=== PATIENT | male | born 1955 | race Caucasian/White ===

== ENCOUNTER 2020-05-27 07:01 | Outpatient (CLI) | payer MEDICARE, OTHER, SELFPAY ==
[2020-05-27 07:52] LABS: Cholesterol 129 mg/dL (0-200); HDL Direct 37 mg/dL; Triglycerides 146 mg/dL (<150)
[2020-05-27 08:06] LABS: LDL Cholesterol Direct 61 mg/dL
[2020-05-27 08:45] LABS: Prostate Specific Antigen < 0.1 ng/mL (< OR = 4.0); Thyroid Stimulating Hormone 0.846 uIU/mL (0.465-4.680)
== END 2020-05-27 07:02 | disposition home or self-care (01) ==
PROVIDERS: PCP Family Medicine; Visit Provider Family Medicine
DX: R53.83 Other fatigue (principal); I25.10 Atherosclerotic heart disease of native coronary artery without angina pectoris; R35.1 Nocturia
CPT/HCPCS: 36415; 80061; 84153; 84443

== ENCOUNTER 2020-09-02 06:54 | Outpatient (NON) | payer MEDICARE, SELFPAY ==
[2020-09-03 01:18] LABS: SARS-CoV-2 RNA PCR Negative
== END 2020-09-02 06:55 ==
PROVIDERS: PCP Family Medicine; Visit Provider Family Medicine
DX: R09.81 Nasal congestion (principal); Z20.828 Contact with and (suspected) exposure to other viral communicable diseases
CPT/HCPCS: 87635; C9803; U0003

== ENCOUNTER 2021-05-29 06:48 | Outpatient (CLI) | payer MEDICARE, SELFPAY ==
[2021-05-29 07:34] LABS: Add Urine Microscopic? YES; Appearance Urine Clear (Clear); Bilirubin Urine Negative (Negative); Blood Urine 1+ (Negative); Color Urine Yellow (Yellow); Glucose Urine UA Negative (Negative); Ketones Urine Negative (Negative); Leukocyte Esterase Ur Negative LEU/UL (NEGATIVE); Mucus Urine Rare /lpf; Nitrate Urine Negative (Negative); Protein Urine 1+ mg/dL (Negative); RBC Urine 0-2 /hpf (0-2); Specific Grav Ur 1.024 (1.001-1.035); Squamous Epithelial Cell Urine Rare /hpf (Few); Urobilinogen Urine Negative mg/dL (<2.0); WBC Urine 0-3 /hpf (0-3)
[2021-05-29 07:40] LABS: Alanine Aminotransferase 18 U/L (4-50); Albumin Level 4.1 g/dL (3.5-5.1); Alkaline Phosphatase 92 U/L (38-126); Anion Gap 5 mmol/L (8-16); Aspartate Amino Transferase 28 U/L (17-59); Bilirubin,Total 0.4 mg/dL (0.2-1.3); Blood Urea Nitrogen 21 mg/dL (9-20); Calcium 9.1 mg/dL (8.4-10.2); Carbon Dioxide 28 mmol/L (22-30); Chloride 107 mmol/L (98-107); Cholesterol 110 mg/dL (0-200); Estimated Glomerular Filt Rate 55; Glucose 93 mg/dL (65-110); HDL Direct 38 mg/dL; Potassium 4.1 mmol/L (3.4-5.0); Sodium 140 mmol/L (137-145); Triglycerides 111 mg/dL (<150)
[2021-05-29 07:51] LABS: LDL Cholesterol Direct 38 mg/dL
[2021-05-29 08:10] LABS: Prostate Specific Antigen < 0.1 ng/mL (< OR = 4.0); Thyroid Stimulating Hormone 0.806 uIU/mL (0.465-4.680)
== END 2021-05-29 06:49 | disposition home or self-care (01) ==
PROVIDERS: PCP Family Medicine; Visit Provider Family Medicine
DX: I25.10 Atherosclerotic heart disease of native coronary artery without angina pectoris (principal); R35.1 Nocturia; Z00.00 Encounter for general adult medical examination without abnormal findings; E78.5 Hyperlipidemia, unspecified
CPT/HCPCS: 36415; 80053; 80061; 81001; 84153; 84443

== ENCOUNTER 2021-07-11 06:47 | Outpatient (CLI) | payer MEDICARE, SELFPAY ==
[2021-07-11 07:37] LABS: Add Urine Microscopic? NO; Appearance Urine Clear (Clear); Bilirubin Urine Negative (Negative); Blood Urine Negative (Negative); Color Urine Yellow (Yellow); Glucose Urine UA Negative (Negative); Ketones Urine Negative (Negative); Leukocyte Esterase Ur Negative LEU/UL (NEGATIVE); Nitrate Urine Negative (Negative); Protein Urine Negative (Negative); Urobilinogen Urine Negative mg/dL (<2.0)
== END 2021-07-11 06:48 | disposition home or self-care (01) ==
PROVIDERS: PCP Family Medicine; Visit Provider Physician Assistant
DX: R31.9 Hematuria, unspecified (principal)
CPT/HCPCS: 81003

== ENCOUNTER 2021-11-17 06:46 | Outpatient (CLI) | payer MEDICARE, SELFPAY ==
[2021-11-17 07:26] LABS: Basophils Absolute Auto 0.1 K/mm3 (0.0-0.1); Eosinophils Absolute Auto 0.3 K/mm3 (0-0.3); Hemoglobin 14.7 g/dL (14.0-18.0); Immature Granulocyte Absolute 0.01 K/mm3 (0.00-0.031); Immature Granulocyte Percent A 0.1 % (0-0.5); Lymphocytes Absolute Auto 1.85 K/mm3 (0.9-3.2); Lymphocytes Percent Auto 26.2 % (18.3-44.2); Mean Corpuscular Volume 103.1 fl (80-100); Mean Platelet Volume 10.2 fl (7.4-10.4); Monocytes Absolute Auto 1.3 K/mm3 (0.1-0.6); Monocytes Percent Auto 18.4 % (2.6-8.5); Neutrophils Absolute Auto 3.6 K/mm3 (1.3-6.7); Neutrophils Percent Auto 50.3 % (45.5-73.1); Platelet Count Result 216 k/mm3 (150-375); Red Blood Count 4.46 M/mm3 (4.6-6.20); Red Cell Distribution Width 14.4 % (11.5-14.5); White Blood Count 7.1 K/mm3 (4.5-10.0)
[2021-11-17 07:29] LABS: Add Urine Microscopic? YES; Appearance Urine Clear (Clear); Bilirubin Urine Negative (Negative); Blood Urine 1+ (Negative); Color Urine Yellow (Yellow); Glucose Urine UA Negative (Negative); Ketones Urine Negative (Negative); Leukocyte Esterase Ur Negative LEU/UL (NEGATIVE); Mucus Urine Rare /lpf; Nitrate Urine Negative (Negative); Protein Urine Negative (Negative); Specific Grav Ur 1.019 (1.001-1.035); Urobilinogen Urine Negative mg/dL (<2.0); WBC Urine 0-3 /hpf (0-3)
[2021-11-17 07:42] LABS: Alanine Aminotransferase 19 U/L (4-50); Albumin Level 4.1 g/dL (3.5-5.1); Alkaline Phosphatase 89 U/L (38-126); Anion Gap 3 mmol/L (8-16); Aspartate Amino Transferase 32 U/L (17-59); Bilirubin,Total 0.6 mg/dL (0.2-1.3); Blood Urea Nitrogen 21 mg/dL (9-20); CRP < 0.5 mg/dL (<1.0); Carbon Dioxide 29 mmol/L (22-30); Chloride 106 mmol/L (98-107); Cholesterol 103 mg/dL (0-200); Estimated Glomerular Filt Rate 60; Glucose 106 mg/dL (65-110); HDL Direct 32 mg/dL; Potassium 4.2 mmol/L (3.4-5.0); Sodium 138 mmol/L (137-145); Triglycerides 119 mg/dL (<150)
[2021-11-17 07:51] LABS: LDL Cholesterol Direct 46 mg/dL
[2021-11-17 07:56] LABS: Erythrocyte Sedimentation Rate 10 mm/hr (0-20)
[2021-11-17 08:12] LABS: Prostate Specific Antigen < 0.1 ng/mL (< OR = 4.0); Thyroid Stimulating Hormone 0.486 uIU/mL (0.465-4.680)
== END 2021-11-17 06:47 | disposition home or self-care (01) ==
PROVIDERS: PCP Family Medicine; Visit Provider Family Medicine
DX: M05.79 Rheumatoid arthritis with rheumatoid factor of multiple sites without organ or systems involvement (principal); Z79.899 Other long term (current) drug therapy; E78.5 Hyperlipidemia, unspecified; M05.20 Rheumatoid vasculitis with rheumatoid arthritis of unspecified site; I25.10 Atherosclerotic heart disease of native coronary artery without angina pectoris; R53.83 Other fatigue; R35.1 Nocturia
CPT/HCPCS: 36415; 80053; 80061; 81001; 84153; 84443; 85025; 85652; 86140

== ENCOUNTER 2021-12-22 06:38 | Outpatient (CLI) | payer MEDICARE, SELFPAY ==
[2021-12-22 07:22] LABS: Add Urine Microscopic? YES; Appearance Urine Cloudy (Clear); Bilirubin Urine Negative (Negative); Blood Urine Negative (Negative); Color Urine Yellow (Yellow); Glucose Urine UA Negative (Negative); Ketones Urine Negative (Negative); Leukocyte Esterase Ur Negative LEU/UL (NEGATIVE); Mucus Urine Rare /lpf; Nitrate Urine Negative (Negative); Protein Urine Negative (Negative); RBC Urine 0-2 /hpf (0-2); Urobilinogen Urine Negative mg/dL (<2.0); WBC Urine 0-3 /hpf (0-3)
== END 2021-12-22 06:39 | disposition home or self-care (01) ==
LOC: ANHLAB 06:41
PROVIDERS: PCP Family Medicine; Visit Provider Physician Assistant
DX: R31.9 Hematuria, unspecified (principal)
CPT/HCPCS: 81001

== ENCOUNTER 2022-03-23 12:18 | Outpatient (CLI) | payer MEDICARE, SELFPAY ==
--- NOTE | ~2022-03-23 | CT_ITS ---
EXAMINATION: CT sinus wo con DATE: 03/23/2022 12:41 INDICATION: Chronic sinusitis TECHNIQUE: Computed tomography (CT) of the paranasal sinuses was performed without intravenous contra st. The dose-length product was 280.71 mGy-cm. Automated exposure control and iterative reconstructio n technique were employed. COMPARISON: None FINDINGS: There is mucosal thickening of the frontal, ethmoid, right sphenoid and maxillary sinuses. Mastoids are pneumatized. Rightward nasal septal deviation. Right ostiomeatal unit is partially occlu ded by soft tissue. IMPRESSION: 1. Moderate sinus disease. 2: Rightward nasal septal deviation. Reviewed, dictated and finalized at location A.
== END 2022-03-23 12:19 | disposition home or self-care (01) ==
PROVIDERS: PCP Family Medicine; Visit Provider Otolaryngology
DX: J32.8 Other chronic sinusitis (principal); J34.2 Deviated nasal septum
CPT/HCPCS: 70486

== ENCOUNTER 2022-12-11 11:07 | Outpatient (CLI) | payer MEDICARE, SELFPAY ==
--- NOTE | ~2022-12-11 | CT_ITS ---
CT Scan of the Chest without Contrast: Clinical Indication: Lung cancer screening, smoking history Technique: Contiguous sections were acquired throughout the chest without intravenous contrast. Dose reduction technique was used on this scan by utilizing automated exposure control and iterative recon struction technique. The dose-length product (DLP) was 163.88 mGy-cm. Findings: There is no evidence of any significant mediastinal, hilar or axillary lymphadenopathy. There are ath erosclerotic calcifications of the aorta. Large hiatal hernia present, containing essentially the ent terrence stomach, with organoaxial volvulus. There is no evidence of pleural or pericardial effusion. The lungs are clear. No pulmonary nodules or infiltrates are noted. There is moderate, predominantly paraseptal, emphysema. Images through the upper abdomen reveal no abnormalities. Impression: Lung-RADS 1: Negative. [address] advised. Moderate emphysema, predominantly paraseptal. Large hiatal hernia, containing the entire stomach with organoaxial volvulus. Reviewed, dictated and finalized at [facility]. Impression: Lung-RADS 1: Negative. [address] advised. Moderate emphysema, predominantly paraseptal. Large hiatal hernia, containing the entire stomach with organoaxial volvulus.
== END 2022-12-11 11:08 | disposition home or self-care (01) ==
LOC: ANHIMG 11:09
PROVIDERS: PCP Family Medicine; Visit Provider Family Medicine
DX: Z12.2 Encounter for screening for malignant neoplasm of respiratory organs (principal); F17.210 Nicotine dependence, cigarettes, uncomplicated
CPT/HCPCS: 71271

== ENCOUNTER 2022-12-14 06:37 | Outpatient (CLI) | payer MEDICARE, SELFPAY ==
[2022-12-14 07:41] LABS: Hematocrit 47.9 % (42.0-52.0); Hemoglobin 15.6 g/dL (14.0-18.0); Mean Corpuscular HGB Conc 32.6 g/dl (32-36); Mean Corpuscular Hemoglobin 33.5 pg (26-34); Mean Platelet Volume 10.6 fl (7.4-10.4); Platelet Count Result 201 k/mm3 (150-375); Red Blood Count 4.65 M/mm3 (4.6-6.20); White Blood Count 10.5 K/mm3 (4.5-10.0)
[2022-12-14 08:03] LABS: Alanine Aminotransferase 30 U/L (6-50); Albumin Level 4.2 g/dL (3.5-5.1); Alkaline Phosphatase 77 U/L (38-126); Anion Gap 7 mmol/L (8-16); Aspartate Amino Transferase 37 U/L (17-59); Bilirubin,Total 0.6 mg/dL (0.2-1.3); Blood Urea Nitrogen 18 mg/dL (9-20); Calcium 8.9 mg/dL (8.4-10.2); Carbon Dioxide 28 mmol/L (22-30); Chloride 105 mmol/L (98-107); Cholesterol 120 mg/dL (0-200); Estimated Glomerular Filt Rate > 60; Glucose 96 mg/dL (65-110); HDL Direct 33 mg/dL; Potassium 4.4 mmol/L (3.4-5.0); Sodium 140 mmol/L (137-145); Triglycerides 194 mg/dL (<150)
[2022-12-14 08:14] LABS: LDL Cholesterol Direct 49 mg/dL
[2022-12-14 08:14] LABS: Appearance Urine Clear (Clear); Bilirubin Urine Negative (Negative); Blood Urine Negative (Negative); Color Urine Yellow (Yellow); Glucose Urine UA Negative (Negative); Ketones Urine Negative (Negative); Leukocyte Esterase Ur Negative LEU/UL (NEGATIVE); Nitrate Urine Negative (Negative); Protein Urine Negative (Negative); Specific Grav Ur 1.022 (1.001-1.035); Urobilinogen Urine 0.2 mg/dL (<2.0)
[2022-12-14 08:32] LABS: Prostate Specific Antigen < 0.1 ng/mL (< OR = 4.0); Thyroid Stimulating Hormone 0.772 uIU/mL (0.465-4.680)
[2022-12-14 08:35] LABS: Add Urine Microscopic? NO
[2022-12-14 09:19] LABS: Hemoglobin A1C 5.4 % (<5.7)
== END 2022-12-14 06:38 | disposition home or self-care (01) ==
PROVIDERS: PCP Family Medicine; Visit Provider Family Medicine
DX: C44.92 Squamous cell carcinoma of skin, unspecified (principal); I25.10 Atherosclerotic heart disease of native coronary artery without angina pectoris; E78.5 Hyperlipidemia, unspecified; R35.1 Nocturia; R73.01 Impaired fasting glucose
CPT/HCPCS: 36415; 80053; 80061; 81003; 83036; 84153; 84443; 85027

== ENCOUNTER 2023-04-24 10:42 | Outpatient (CLI) | payer MEDICARE, SELFPAY ==
--- NOTE | ~2023-04-24 | US_ITS ---
EXAMINATION: US carotid duplex BI DATE: 04/24/2023 11:36 INDICATION: Occlusion/stenosis of the right carotid artery TECHNIQUE: Grayscale, color Doppler, and pulsed Doppler images of the cervical carotid arteries were obtained. The degree of vessel stenosis is placed in one of the following categories: normal, <50%, 5 0-69%, >=70% but less than near-occlusion, near-occlusion, or total occlusion. Note that percent sten osis relative to normal distal artery lumen diameter is indirectly measured from velocity measurement s as described by Jerzy, et al. Radiology 2003; 229:[id number]. COMPARISON: None. FINDINGS: RIGHT: The right common carotid artery (CCA) peak systolic velocity (PSV) is 71 cm/s. The right internal car otid artery (ICA) PSV is 58 cm/s. The right ICA end-diastolic velocity (EDV) is 20 cm/s. The right IC A/CCA PSV ratio is 0.8. Grayscale and color Doppler images yield an estimate of <50% diameter reducti on from plaque in the ICA. The external carotid artery (ECA) PSV is 98 cm/s. There is antegrade flow in the right vertebral artery. LEFT: The left CCA PSV is 92 cm/s. The left ICA PSV is 64 cm/s. The left ICA EDV is 16 cm/s. The left ICA/C CA PSV ratio is 0.7. Grayscale and color Doppler images yield an estimate of <50% diameter reduction from plaque in the ICA. The ECA PSV is 106 cm/s. There is antegrade flow in the left vertebral artery . Notes: normal: PSV<125 and no plaque <50%: PSV<125 (EDV<40;ICA/CCA PSV ratio<2.0; use these factors only if tandem lesions or low cardiac output or contralateral disease) 50-69%: PSV 125-230 (EDV 40-100;ratio 2.0-4.0) >=70% but less than near occlusion: PSV>230(EDV>100;ratio>4.0) near-occlusion: PSV variable; markedly narrowed lumen occlusion: absent flow on color/spectral Doppler and no lumen on grayscale IMPRESSION: 1. stenosis in the right internal carotid artery. 2. stenosis in the left internal carotid artery. Reviewed, dictated and finalized at location B.
== END 2023-04-24 10:43 | disposition home or self-care (01) ==
LOC: ANHIMG 10:43
PROVIDERS: PCP Family Medicine; Visit Provider Family Medicine
DX: I65.23 Occlusion and stenosis of bilateral carotid arteries (principal)
CPT/HCPCS: 93880

== ENCOUNTER 2023-12-05 19:24 | Emergency (ER) | payer MEDICARE, SELFPAY ==
--- NOTE | ~2023-12-05 | CT_ITS ---
CT scan of the Neck Technique: 2.5 mm axial scans were obtained through the neck after intravenous administration of 75 c c Omnipaque 350. Coronal and sagittal reconstructions of the neck were obtained. Dose reduction techn ique was used on this scan by utilizing automated exposure control and iterative reconstruction techn ique. The dose-length product (DLP) was 570.77 mGy-cm. Clinical History: Throat pain Findings: There is no evidence of any significant cervical lymphadenopathy. Several small, nonenlarged jugulo- digastric and posterior cervical lymph nodes are noted bilaterally. Parapharyngeal spaces appear norm al bilaterally. The parotid and submandibular glands appear normal. The pharyngeal mucosal spaces appear normal. No soft tissue masses are seen in the neck. The thyroid gland appears normal. Images of the lung apices reveal moderate to advanced paraseptal em physema. Impression: No significant abnormality seen in the neck itself. [place] lymph nodes are probably not enlarged by s ize criteria. Emphysematous change the lung apices, as above. Reviewed, dictated and finalized at location M. Impression: No significant abnormality seen in the neck itself. [place] lymph nodes are prob ably not enlarged by size criteria. Emphysematous change the lung apices, as above.
[2023-12-05 19:28] VITALS: BP 120/78; PULSE 90; RESP 20; TEMP 36.9; O2SAT 96
[2023-12-05 20:14] LABS: Strep Group A RT-PCR NOT DETECTED (Negative)
[2023-12-05 20:25] LABS: Influenza A QL RT-PCR Negative (Negative); Influenza B QL RT-PCR Negative (Negative); RSV RNA, RT-PCR Negative (Negative); SARS-CoV-2 RNA PCR Negative (Negative)
[2023-12-05 21:27] VITALS: O2SAT 99
[2023-12-05 21:28] VITALS: BP 134/75; PULSE 67; RESP 15; TEMP 36.6; O2SAT 99
--- NOTE | 2023-12-05 23:09 | ED.GENADULT ---
HPI - General Adult General Chief complaint: Upper Respiratory Infection Stated complaint: sore throat Time Seen by Provider: 12/05/23 22:04 History of Present Illness HPI narrative: 68-year-old male history of rheumatoid arthritis on methotrexate presenting for sore throat x1 0.5 months. Patient has been treated with multiple courses of antibiotics including amoxicillin, Augmentin and azithromycin. However he is still having pain. he can swallow although it is painful. Able to tolerating secretions. No shortness of breath. patient has significant smoking history. 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 Related Data Home Medications Medication Instructions Recorded Confirmed aspirin 81 mg chewable tablet 81 mg PO DAILY 10/16/19 12/04/23 (Kash Chewable Low Dose Aspirin) folic acid 1 mg tablet 1 mg PO DAILY 10/16/19 12/04/23 methotrexate sodium 2.5 mg tablet 2.5 mg PO WEEKLY 10/16/19 12/04/23 golimumab 12.5 mg/mL intravenous IV .x2besan 08/23/23 12/04/23 solution (Simponi ARIA) Allergies Allergy/AdvReac Type Severity Reaction Status Date / Time aspirin Allergy Mild Swelling Verified 12/04/23 09:48 [facility] Past Medical History Medical History CAD (coronary artery disease) Family history of colon cancer GERD (gastroesophageal reflux disease) History of insertion of hepatic arterial infusion pump HLD (hyperlipidemia) Immunocompromised [place] (myocardial infarction) Rheumatoid arthritis Smoking Surgical History Surgical History History of nasal septoplasty S/P coronary artery stent placement Family History Family History Mother Hypertension Carcinoma of colon Social History Social History Smoking packs per day: 1 Smoking cigarettes per day: 20.0 Years smoked: 30 Smoking pack-years: 30.00 Smoking status: Current every day smoker Tobacco type: cigarettes Second hand tobacco smoke exposure: No Alcohol intake: never Alcohol use details: rare Substance use: never Substance use type: does not use Living arrangements: with family Occupation/Education: occupation Gender identity (if verbalized by the patient): Male Sexual Orientation (if Verbalized by the Patient): Straight or Heterosexual Exam Narrative: APPEARANCE: No apparent distress. Head: no erythema posterior oropharynx, limb adenopathy the anterior cervical chain EYES: EOMI, NOSE: Atraumatic NECK: Trachea midline RESPIRATORY: No increased rate of breathing CARDIOVASCULAR: RRR, ABDOMINAL: Non-distended MUSCULOSKELETAl: No obvious deformities NEURO: Alert. Moving 4/4 extremities SKIN:: Warm, dry. Normal color PSYCHIATRIC: Normal affect Course Vital Signs Vital signs: Vital Signs Temperature 98.4 F 12/05/23 19:28 Pulse Rate 90 12/05/23 19:28 Respiratory Rate 20 12/05/23 19:28 Blood Pressure 120/78 12/05/23 19:28 Pulse Oximetry 96 12/05/23 19:28 Oxygen Delivery Room Air 12/05/23 19:28 Temperature 97.8 F 12/05/23 21:28 Pulse Rate 75 12/06/23 01:18 Respiratory Rate 20 12/06/23 01:18 Blood Pressure 100/62 12/06/23 01:18 Pulse Oximetry 99 12/06/23 01:18 Oxygen Delivery Room Air 12/05/23 21:27 Medical Decision Making [facility] Narrative Medical decision making narrative: -Course: 68-year-old male on immunosuppression for rheumatoid arthritis presenting with sore throat x1.5 months. Viral in strep swab is negative here. Physical exam unremarkable outside of some anterior cervical lymphadenopathy. Soft tissue CT of the neck unremarkable. No airway emergencies at this time. Patient be discharged with ENT follow-up. Incidentally found have low platelets. No bleeding. This can be followed by his primary care physician. -DDX includes but is not limited to: Neoplasm, strep throat, deep space infecti
[2023-12-05 23:21] VITALS: BP 104/66; PULSE 73; RESP 16; O2SAT 98
[2023-12-05 23:31] LABS: Hematocrit 48.1 % (42.0-52.0); Hemoglobin 16.2 g/dL (14.0-18.0); Immature Platelet Fraction Pct 13.8 % (0.9-11.2); Mean Corpuscular HGB Conc 33.7 g/dl (32-36); Mean Corpuscular Hemoglobin 32.2 pg (26-34); Mean Corpuscular Volume 95.6 fl (80-100); Mean Platelet Volume 12.3 fl (7.4-10.4); Platelet Count Result 51 k/mm3 (150-375); Red Blood Count 5.03 M/mm3 (4.6-6.20); Red Cell Distribution Width 15.6 % (11.5-14.5); White Blood Count 10.8 K/mm3 (4.5-10.0)
[2023-12-06 00:03] LABS: Band Neutrophils Percent 3 % (0-6); Large Platelets Present; Lymphocytes Absolute Manual 2.26 K/mm3 (1.1-4.5); Monocytes Absolute Manual 0.97 K/mm3 (0.1-0.90); Monocytes Percent Manual 9 % (3-9); Myelocytes Percent 2 %; Neutrophils Absolute Manual 7.34 K/mm3 (1.3-6.7); Neutrophils Percent Manual 65 % (46-73); Platelet Estimate Decreased (Adequate); Total Cells Counted 100
[2023-12-06 00:04] LABS: Schistocytes None Seen; Smudge Cells FEW
[2023-12-06 00:31] LABS: Anion Gap 5 mmol/L (8-16); Blood Urea Nitrogen 24 mg/dL (9-20); Calcium 9.8 mg/dL (8.4-10.2); Carbon Dioxide 25 mmol/L (22-30); Chloride 100 mmol/L (98-107); Estimated CRCL calculation 53 ml/min; Estimated Glomerular Filt Rate 55; Glucose 112 mg/dL (65-110); Potassium 3.9 mmol/L (3.4-5.0); Sodium 130 mmol/L (137-145)
[2023-12-06 00:35] LABS: Estimated CRCL calculation 43 ml/min; Estimated Glomerular Filt Rate 43
[2023-12-06 01:18] VITALS: BP 100/62; PULSE 75; RESP 20; O2SAT 99
== END 2023-12-06 03:01 | disposition home or self-care (01) ==
PROVIDERS: Emergency Medicine; Emergency Provider Emergency Medicine; PCP Family Medicine
DX: J31.2 Chronic pharyngitis (principal); Z20.822 Contact with and (suspected) exposure to COVID-19; I25.10 Atherosclerotic heart disease of native coronary artery without angina pectoris; I25.2 Old myocardial infarction; E78.5 Hyperlipidemia, unspecified; M06.9 Rheumatoid arthritis, unspecified; K21.9 Gastro-esophageal reflux disease without esophagitis; F17.210 Nicotine dependence, cigarettes, uncomplicated; Z95.5 Presence of coronary angioplasty implant and graft; Z79.82 Long term (current) use of aspirin
CPT/HCPCS: 36415; 70491; 80048; 85025; 85055; 87637; 87651; 99284; Q9967

== ENCOUNTER 2023-12-09 02:12 | Inpatient (IN) | payer MEDICARE, SELFPAY ==
[2023-12-09] VITALS (10 sets, daily range): BP systolic 86–119; BP diastolic 60–79; PULSE 65–110; RESP 16–20; TEMP 36.6–37; O2SAT 93–98; BMI 23.2; BMI 23.0
--- NOTE | ~2023-12-09 | US_ITS ---
EXAMINATION: US biopsy lymph node DATE: 12/12/2023 10:30 INDICATION: Right axillary lymphadenopathy. TECHNIQUE: The procedure including the risks, benefits, and alternatives was discussed with the patie nt. Risks discussed included bleeding and infection. The patient understood the risks and agreed to p roceed. The skin overlying the right axilla was prepped and draped in usual sterile fashion. Anesthe tic was administered with 1% lidocaine subcutaneously. An 18 gauge core biopsy needle was then used to obtain 6 core biopsy specimens under continuous sonographic guidance. The entry site was cleaned a nd dressed. There were no immediate complications. FINDINGS: Ultrasound images demonstrate the needle in a 1.6 x 1.1 x 1.2 cm axillary lymph node. IMPRESSION: 1. Ultrasound-guided core needle biopsy of a right axillary lymph node. Reviewed, dictated and finalized at location A.
--- NOTE | ~2023-12-09 | CT_ITS ---
EXAMINATION: CT diagnostic chest w con DATE: 12/10/2023 13:39 INDICATION: lymphadenopathy TECHNIQUE: Computed tomography (CT) of the chest was performed with 100 mL Omnipaque-350 intravenous contrast. Additional 3D reconstructions utilizing coronal maximum intensity projection (MIP) were per formed. Automated exposure control and iterative reconstruction technique were employed. The dose-cat gth product was 207.43 mGy-cm. COMPARISON: 12/11/2022 and 12/09/2023 FINDINGS: Moderate paraseptal and upper lung predominant emphysema. There is mild basilar septal line thickenin g associated with the peripheral emphysema the bilateral lower lobes, right greater than left. No ple ural effusion or pneumothorax. Heart size is normal. Atherosclerotic coronary artery calcification. N o pericardial effusion. Thoracic aorta is normal in caliber with no dissection. No interval change in a mildly enlarged precarinal lymph node which measures 11 mm maximal short axis diameter. There is a lso been interval enlargement of a few bilateral axillary lymph nodes measuring up to 11 mm in karolina l short axis diameter on the left and 12 mm on the right. Large sliding-type hiatal hernia. 2.[address] at the upper pole of the right kidney. Severe thoracic spondylosis with chronic mild anterior wedg ing of a few mid and lower thoracic vertebral bodies. IMPRESSION: 1. Moderate paraseptal predominant emphysema with irregular septal line thickening associated with th e emphysematous changes at the bilateral lower lobes which could represent atelectasis, mild pulmonar y edema or pneumonia in the acute setting or more chronic interstitial lung disease with either UIP o r NSIP pattern. 2. Interval development of a few mildly enlarged bilateral axillary lymph nodes which could be reacti ve with differential including lymphoma or metastatic disease. 3. Large sliding-type hiatal hernia. Reviewed, dictated and finalized at location A. IMPRESSION: 1. Moderate paraseptal predominant emphysema with irregular septal line thicken ing associated with the emphysematous changes at the bilateral lower lobes whic h could represent atelectasis, mild pulmonary edema or pneumonia in the acute s etting or more chronic interstitial lung disease with either UIP or NSIP patter n. 2. Interval development of a few mildly enlarged bilateral axillary lymph nodes which could be reactive with differential including lymphoma or metastatic dis ease. 3. Large sliding-type hiatal hernia.
--- NOTE | ~2023-12-09 | CT_ITS ---
EXAMINATION: CT abdomen pelvis wo con DATE: 12/09/2023 14:43 INDICATION: Abdomen pain TECHNIQUE: Computed tomography (CT) of the abdomen and pelvis was performed without intravenous contr ast. The dose-length product was 424.73 mGy-cm. Automated exposure control and iterative reconstructi on technique were employed. COMPARISON: None. FINDINGS: Large hiatal hernia. No significant pleural or pericardial effusion. There are chronic inte rstitial lung disease. Heart size normal. No significant pleural or pericardial effusion. There is sp lenomegaly. The liver, pancreas, adrenal glands are unremarkable. There is nonobstructing left renal stones. There is a right renal cyst. Colonic diverticulosis without evidence for diverticulitis. Gall bladder is present. Nonobstructive bowel gas pattern. Colonic diverticulosis without evidence for div erticulitis. There are retroperitoneal and mesenteric lymph nodes which are enlarged. Severe lower th oracic and lumbar spondylosis. IMPRESSION: 1. Mesenteric and retroperitoneal lymphadenopathy. Consider lymphoma and metastatic disease. 2: Large hiatal hernia. 3: Splenomegaly. 4: Nonobstructing left nephrolithiasis. Reviewed, dictated and finalized at location B. IMPRESSION: 1. Mesenteric and retroperitoneal lymphadenopathy. Consider lymphoma and metast atic disease. 2: Large hiatal hernia. 3: Splenomegaly. 4: Nonobstructing left nephrolithiasis.
--- NOTE | ~2023-12-09 | XR_ITS ---
XR chest 2V DATE: 12/15/2023 09:29 INDICATION: Pneumonia. Assessment TECHNIQUE: PA and lateral views COMPARISON: 12/10/2023 CT chest FINDINGS: Normal heart size. Aortic arch calcification. Large hiatal hernia with air-fluid level. There is minimal infiltrate or atelectasis in the right lower lung. Peripheral honeycombing and septal soft tissue thickening suggesting possible usual interstitial pneu monia type pulmonary interstitial fibrosis. IMPRESSION: Peripheral honeycombing and septal soft tissue thickening suggesting possible usual inter stitial pneumonia type pulmonary interstitial fibrosis Minimal infiltrate or atelectasis in the right lower lung Large hiatal hernia with air-fluid level Reviewed, dictated and finalized at location A. IMPRESSION: Peripheral honeycombing and septal soft tissue thickening suggestin g possible usual interstitial pneumonia type pulmonary interstitial fibrosis Minimal infiltrate or atelectasis in the right lower lung Large hiatal hernia with air-fluid level
--- NOTE | ~2023-12-09 | XR_ITS ---
XR chest 1V portable DATE: 12/19/2023 09:47 INDICATION: Fever TECHNIQUE: Portable upright AP chest on December 19, 2023 at 0935 hours COMPARISON: December 15, 2023 PA and lateral chest 12/10/2023 CT chest FINDINGS: Heart size is within normal range. There is pulmonary vascular redistribution and diffuse p ulmonary interstitial and minor fissure prominence suggesting Possible pulmonary Station subpleural edema. No pleural effusion or pneumothorax is noted. Peripheral bullous changes are noted. Aortic arch calcification. Large hiatal hernia Osteopenia. IMPRESSION: Mild congestive changes are suggested Reviewed, dictated and finalized at location B.
[2023-12-09 02:28] LABS: Basophils Absolute Auto 0.1 K/mm3 (0.0-0.1); Basophils Percent Auto 0.7 % (0.2-1.2); Hematocrit 43.8 % (42.0-52.0); Hemoglobin 14.3 g/dL (14.0-18.0); Immature Granulocyte Absolute 0.11 K/mm3 (0.00-0.031); Immature Granulocyte Percent A 0.9 % (0-0.5); Immature Platelet Fraction Pct 16.3 % (0.9-11.2); Lymphocytes Absolute Auto 3.61 K/mm3 (0.9-3.2); Lymphocytes Percent Auto 31.1 % (18.3-44.2); Mean Corpuscular HGB Conc 32.6 g/dl (32-36); Mean Corpuscular Hemoglobin 31.6 pg (26-34); Mean Corpuscular Volume 96.7 fl (80-100); Mean Platelet Volume 14.9 fl (7.4-10.4); Monocytes Percent Auto 17.4 % (2.6-8.5); Neutrophils Absolute Auto 5.8 K/mm3 (1.3-6.7); Neutrophils Percent Auto 49.9 % (45.5-73.1); Platelet Count Result 49 k/mm3 (150-375); Red Blood Count 4.53 M/mm3 (4.6-6.20); Red Cell Distribution Width 15.7 % (11.5-14.5); White Blood Count 11.6 K/mm3 (4.5-10.0)
[2023-12-09 02:37] LABS: INR 1.2; Prothrombin Time 15.3 Seconds (11.1-14.7)
[2023-12-09 02:41] LABS: Alanine Aminotransferase 38 U/L (6-50); Albumin Level 3.4 g/dL (3.5-5.1); Alkaline Phosphatase 95 U/L (38-126); Anion Gap 7 mmol/L (8-16); Aspartate Amino Transferase 63 U/L (17-59); Bilirubin,Total 0.7 mg/dL (0.2-1.3); Blood Urea Nitrogen 36 mg/dL (9-20); Calcium 9.4 mg/dL (8.4-10.2); Carbon Dioxide 27 mmol/L (22-30); Chloride 99 mmol/L (98-107); Estimated CRCL calculation 53 ml/min; Estimated Glomerular Filt Rate 55; Glucose 138 mg/dL (65-110); Sodium 133 mmol/L (137-145)
[2023-12-09 02:55] LABS: Platelet Estimate Decreased (Adequate)
[2023-12-09 02:56] LABS: Anisocytosis 1+; Large Platelets Present
[2023-12-09 02:57] LABS: Atypical Lymphocytes Present; Schistocytes None Seen
--- NOTE | 2023-12-09 05:11 | ED.GENADULT ---
HPI - General Adult General Chief complaint: GI Bleed Stated complaint: gi bleed Time Seen by Provider: 12/09/23 02:50 History of Present Illness HPI narrative: Patient is a 68-year-old male who presents to the emergency department this morning complaining of bloody stools. Patient states that at around midnight he went to the bathroom and noticed that he had a large volume of blood with his bowel movement. Patient states that the blood was dark red in color, however, his actual stools were very dark brown. Patient denies any history of GI bleed in the past and denies any current blood thinner use. Patient admits to daily baby aspirin use. is currently present at bedside and provides some of the history of present illness. She states that patient was diagnosed with strep throat approximately 2 weeks ago and since then has been struggling with a sore throat preventing him from eating as much as he normally does. Secondary to this, patient has been very weak. Patient has had repeat strep testing which was negative a few days ago. Patient also had viral swabs for COVID/S1/S2 RSV which were noted to be negative. Patient was informed that his platelet level were low and was instructed to follow up with his primary care physician regarding his thrombocytopenia. Patient is currently denying any nausea or vomiting, and denies any abdominal pain. There are no other modifying, alleviating, or precipitating factors at this time. Related Data Home Medications Medication Instructions Recorded Confirmed aspirin 81 mg chewable tablet 81 mg PO DAILY 10/16/19 12/04/23 (Kash Chewable Low Dose Aspirin) folic acid 1 mg tablet 1 mg PO DAILY 10/16/19 12/04/23 methotrexate sodium 2.5 mg tablet 2.5 mg PO WEEKLY 10/16/19 12/04/23 golimumab 12.5 mg/mL intravenous IV .[id number] 08/23/23 12/04/23 solution (Simponi ARIA) Allergies Allergy/AdvReac Type Severity Reaction Status Date / Time aspirin Allergy Mild Swelling Verified 12/04/23 09:48 Review of Systems Review of Systems: All systems are reviewed and are negative unless stated otherwise in the HPI. [facility] Past Medical History Medical History CAD (coronary artery disease) Family history of colon cancer GERD (gastroesophageal reflux disease) History of insertion of hepatic arterial infusion pump HLD (hyperlipidemia) Immunocompromised [place] (myocardial infarction) Rheumatoid arthritis Smoking Surgical History Surgical History History of nasal septoplasty S/P coronary artery stent placement Family History Family History Mother Hypertension Carcinoma of colon Social History Social History Smoking packs per day: 1 Smoking cigarettes per day: 20.0 Years smoked: 30 Smoking pack-years: 30.00 Smoking status: Current every day smoker Tobacco type: cigarettes Second hand tobacco smoke exposure: No Alcohol intake: never Alcohol use details: rare Substance use: never Substance use type: does not use Living arrangements: with family Occupation/Education: occupation Gender identity (if verbalized by the patient): Male Sexual Orientation (if Verbalized by the Patient): Straight or Heterosexual Exam Narrative: General: Alert, awake, afebrile, in no acute distress. HEENT: PERRL, no rhinorrhea, no post nasal drip, oropharynx clear. Neck: Trachea midline, no JVD, no lymphadenopathy. Cardiovascular: Regular rate and rhythm, no murmurs, rubs or gallops, no peripheral edema. Respiratory: Clear to auscultation bilaterally, no tachypnea, no wheezing, no rhonchi, no rubs, no respiratory distress. Abdomen: Soft, nontender, nondistended, no rebound, no guarding, no peritoneal signs. 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
[2023-12-09] MEDS: SODIUM CHLORIDE 0.9% IV 1,000 ML 100 ML IV CONT (06:36)
--- NOTE | 2023-12-09 11:00 | PM.IMHP ---
H&P: HPI History of Present Illness Date/Time: 12/09/23 11:00 Chief Complaint: Patient presented to the emergency room the POV with complaints of ongoing bloody stools that occurred 2 hours prior to arrival. Narrative: Patient is 68-year-old male with PMHx: of CAD, GERD, rheumatoid arthritis on biologics, history of [place] with stent placement reported to the emergency room citing, around midnight he went to the bathroom this is when he noticed a large volume of blood with his bowel movement. Patient endorsed dark red in color stools, he denies a history of GI bleed or anticoagulation use. Patient did state that he takes baby aspirin daily. Patient has history of rheumatoid arthritis he is currently on biologics to include methotrexate 2.5 mg p.o. weekly, he reports he has had ongoing sore throat for > 2 weeks he states it has been very difficult to swallow due to pain, patient, relates anorexia due to not being able to swallow and enjoy solid foods without pain. He reports a history of positive strep throat relates having close sick contacts with positive strep throat., He was also screened and tested for COVID RSV, which was negative. ED workup revealed: Hgb stable 14.3 platelets of 49, BUN 36 all other labs were unremarkable. Review of Systems Review of Systems: All systems reviewed & are unremarkable except as noted in HPI and below PMFSH Past Medical History Medical History CAD (coronary artery disease) Family history of colon cancer GERD (gastroesophageal reflux disease) History of insertion of hepatic arterial infusion pump HLD (hyperlipidemia) Immunocompromised [place] (myocardial infarction) Rheumatoid arthritis Smoking Surgical History Surgical History History of nasal septoplasty S/P coronary artery stent placement Family History Family History Mother Hypertension Carcinoma of colon Social History Social History Smoking packs per day: 1 Smoking cigarettes per day: 20.0 Years smoked: 40 Smoking pack-years: 40.00 Smoking status: Heavy tobacco smoker Tobacco type: cigarettes Second hand tobacco smoke exposure: No Alcohol intake: unknown Alcohol use details: rare Substance use: unknown Substance use type: does not use Do You Feel Safe in your Home?: Yes Lack of Transportation: No Lack of Food: Never True Current Housing: I Have Housing Concerned About Future Housing: No Difficulty Paying Gas/Electric Bills: No Difficulty Paying for Meds: No Currently Unemployed: YES Education: Associate Degree Difficulty w/ Childcare or Family Care: No Living arrangements: with family Occupation/Education: occupation Gender identity (if verbalized by the patient): Male Sexual Orientation (if Verbalized by the Patient): Straight or Heterosexual Spiritual care concerns: No Meds Home Medications and Allergies Home Medications Medication Instructions Recorded Confirmed Type folic acid 1 mg tablet 1 mg PO DAILY 10/16/19 12/09/23 History methotrexate sodium 2.5 mg tablet 25 mg PO WEEKLY 10/16/19 12/09/23 History finasteride 1 mg tablet 1 mg PO DAILY #90 tabs 08/21/23 12/09/23 Rx golimumab 12.5 mg/mL intravenous 12.5 mg IV .[id number] 08/23/23 12/09/23 History solution (Simponi ARIA) metoprolol tartrate 50 mg tablet 25 mg PO Q12H #90 tabs 12/04/23 12/09/23 Rx acetaminophen 500 mg tablet 1,000 mg PO Q8H 12/09/23 12/09/23 History aspirin 81 mg tablet,delayed 81 mg PO DAILY 12/09/23 12/09/23 History release (Adult Low Dose Aspirin) multivitamin 1 tablet PO DAILY 12/09/23 12/09/23 History simvastatin 40 mg tablet 40 mg PO 1700 12/09/23 12/09/23 History Allergies Allergy/AdvReac Type Severity Reaction Status Date / Time aspirin Allergy Mild Swelling Verified 12/04/23 09:48 Vital Signs Vital
[2023-12-09] MEDS: METOPROLOL TARTRATE 25 MG TABLET PO ×2 (11:18→20:23)
[2023-12-09] MEDS: MORPHINE SULFATE (*CRX) 2 MG/ML INJ 1 MG IV PUSH ×2 (11:18→15:32)
[2023-12-09] MEDS: NYSTATIN 100,000 UNITS/ML SUSP 5 ML ORAL.SUSP PO ×3 (11:19→21:27)
[2023-12-09] MEDS: LACTATED RINGERS 1,000 ML 75 ML IV CONT (14:00)
--- NOTE | 2023-12-09 14:54 | WPDGICN ---
Assessment and Plan Assessment and plan (1) Rectal bleed: Code(s): K62.5 - Hemorrhage of anus and rectum Status: Acute Assessment and Plan: ? perianal, never had colonoscopy also could be due to thrombocytopenia will assess with colonoscoy (2) Odynophagia: Code(s): R13.10 - Dysphagia, unspecified Status: Acute Assessment and Plan: egd to check if esophagitis (fungal- he is immunocompromised), ulcers, etc also using MTX- this can cause odynophagia/mucositis and low platelets antibiotics did not help (3) Thrombocytopenia: Code(s): D69.6 - Thrombocytopenia, unspecified Status: Acute Assessment and Plan: ? from methotrexate will give folic acid, get imaging of liver and spleen consult hematology (4) Immunocompromised: Code(s): D84.9 - Immunodeficiency, unspecified Status: Acute Assessment and Plan: on biologics because h/o RA (5) CAD (coronary artery disease): Code(s): I25.10 - Atherosclerotic heart disease of [place] coronary artery without angina pectoris Status: Acute (6) Family history of colon cancer: Code(s): Z80.0 - Family history of malignant neoplasm of digestive organs Status: Acute Assessment and Plan: never had colonoscopy and now with rectal bleeding colonoscopy tomorrow (7) Rheumatoid arthritis: Code(s): M06.9 - Rheumatoid arthritis, unspecified Status: Acute GI Consult Note Consult date/time: 12/09/23 14:54 Reason for consult: odynophagia, rectal bleed HPI: Sebastián Astudillo is a 68 year old male with history of CAD, GERD, rheumatoid arthritis on simponi and MTX, history of [place] with stent placement that came here with new onset of rectal bleeding, denies abdominal pain. He has been dealing with neck pain for over 2 weeks and had difficulty swallowing because of pain, mostly had liquid diet. He was diagnosed initially with strept throat, given amoxicilin without any relief then his PCP ordered Z-pack but still feeling the same. He is supposed to see ENT but still waiting for appointment. He had repeat strep testing which was negative a few days ago.? Patient also had viral swabs for COVID/S1/S2 RSV which were noted to be negative.?He had CT scan neck that showed small lymph nodes, no other concerning findings. He never had colonoscopy, he has been getting only cologuard, his mother had colon cancer. Also found to have new thrombocytopenia ~50k, hgb normal 14 Review of Systems Constitutional: Constitutional: Reports weakness Eyes: Eyes: Denies blurry vision ENT: Reports dysphagia Cardiovascular: Cardiovascular: Denies chest pain Respiratory: Respiratory: Denies chest congestion Gastrointestinal: Gastrointestinal: Reports hematochezia Genitourinary: Genitourinary: Denies dysuria Musculoskeletal: Comments: h/o RA Integumentary/Breasts: Skin/Breast: Reports rash Neurologic: Denies confusion Psychiatric: Psychiatric: Denies behavioral changes [facility] Past Medical History Medical History CAD (coronary artery disease) Family history of colon cancer GERD (gastroesophageal reflux disease) History of insertion of hepatic arterial infusion pump HLD (hyperlipidemia) Immunocompromised Odynophagia [place] (myocardial infarction) Rheumatoid arthritis Smoking Surgical History Surgical History History of nasal septoplasty S/P coronary artery stent placement Family History Family History Mother Hypertension Carcinoma of colon Social History Social History Smoking packs per day: 1 Smoking cigarettes per day: 20.0 Years smoked: 40 Smoking pack-years: 40.00 Smoking status: Heavy tobacco smoker Tobacco type: cigarettes Second hand tobacco smoke exposure: No Alcohol intake: unknown Alcohol use
[2023-12-09] MEDS: BISACODYL 5 MG TABLET EC 20 MG PO (16:11)
[2023-12-09] MEDS: polyethylene glycoL 3350 238 GM BOTTLE PO (16:11)
[2023-12-09] MEDS: SIMVASTATIN 20 MG TABLET 40 MG PO (17:09)
[2023-12-09] MEDS: ONDANSETRON INJ 4 MG/2 ML VIAL IV PUSH (20:51)
--- NOTE | 2023-12-09 23:05 | PC.NURSE ---
This RN preceptor has read over and agrees with student nurse Wall's charting and assessment.
[2023-12-10] VITALS (9 sets, daily range): BP systolic 82–112; BP diastolic 49–72; PULSE 70–89; RESP 16–23; TEMP 35.8–37.7; O2SAT 91–97
[2023-12-10] MEDS: MAGNESIUM CITRATE 300 ML BTL PO (06:38)
[2023-12-10] MEDS: NYSTATIN 100,000 UNITS/ML SUSP 5 ML ORAL.SUSP PO ×4 (08:35→20:14)
[2023-12-10] MEDS: METOPROLOL TARTRATE 25 MG TABLET PO ×2 (08:35→20:13)
--- NOTE | 2023-12-10 08:45 | PM.IMPN ---
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 -denies any n/v Hgb 14.3 12/10/2023 - EGD scheduled pending this a.m. - recheck BMP, CBC in the a.m. (2) Thrombocytopenia: Code(s): D69.6 - Thrombocytopenia, unspecified Status: Acute Assessment and Plan: -hgb stable decline to 12.2 -continue to monitor (3) Immunocompromised: Code(s): D84.9 - Immunodeficiency, unspecified Status: Acute Assessment and Plan: 12/10/23 - continue with plan Patient with history of rheumatoid arthritis on biologics -Hold home medication at this time (4) Rheumatoid arthritis: Code(s): M06.9 - Rheumatoid arthritis, unspecified Status: Acute Assessment and Plan: 12/10/2023 continue plan -hold home medication methotrexate p.o. (5) HLD (hyperlipidemia): Code(s): E78.5 - Hyperlipidemia, unspecified Status: Acute Assessment and Plan: -continue home medication - simvastatin 40 mg p.o. daily (6) CAD (coronary artery disease): Code(s): I25.10 - Atherosclerotic heart disease of [place] coronary artery without angina pectoris Status: Acute Assessment and Plan: stable, denies any chest pain -continue monitor vitals q 4 hrs Plan Continue home medications, patient is scheduled for EGD today, anticipate discharge to home in the a.m. VTE Prophylaxis: SCDs DIET: Clear then NPO at midnight Anticipated hospital stay: >2 days Code Status: Full Subjective Date/time seen: 12/10/23 08:45 Interval history: Patient seen this morning he is resting with eyes open in no acute distress, spouse is by the bedside patient is scheduled for an EGD, this morning, he complains of ongoing mouth pain continued body aches and fatigue. He denies any other complaints at this time. Review of Systems Review of Systems: All systems reviewed & are unremarkable except as noted in HPI and below Exam Narrative: General: Alert, awake, afebrile, in no acute distress. HEENT: PERRL, no rhinorrhea, no post nasal drip, oropharynx clear. Neck: Trachea midline, no JVD, no lymphadenopathy. Cardiovascular: Regular rate and rhythm, no murmurs, rubs or gallops, no peripheral edema. Respiratory: Clear to auscultation bilaterally, no tachypnea, no wheezing, no rhonchi, no rubs, no respiratory distress. Abdomen: Soft, nontender, nondistended, no rebound, no guarding, no peritoneal signs. Musculoskeletal: No joint swelling or deformity, normal muscle tone. Skin: No rashes or petechia, no signs of infection. Psychiatric: Alert and oriented, normal behavior and judgment for situation. Neurological: Alert and oriented to person, place, and time. Follows all commands. No focal deficits, speech is clear and fluent. Objective Data Vital Signs Vital Signs: Vital Signs - 24 hr 12/09/23 11:18 12/09/23 14:00 12/09/23 20:23 Temperature 98.6 F Pulse Rate 88 77 65 Respiratory Rate 20 Blood Pressure 86/60 L Pulse Oximetry 94 12/09/23 20:20 12/10/23 05:05 12/10/23 08:35 Temperature 98.5 F 98.8 F Pulse Rate 96 80 80 Respiratory Rate 16 16 Blood Pressure 119/68 112/55 L Pulse Oximetry 93 91 Intake/Output Intake/Output: Intake & Output 12/07/23 12/08/23 12/09/23 12/10/23 23:59 23:59 23:59 23:59 Intake Total 1620 Output Total 300 Balance 1320 Meds/Results Medications: Active Medications Generic Name Dose Route Start Last Admin Trade Name Freq PRN Reason Stop Dose Admin Metoprolol Tartrate 25 mg 12/09/23 11:05
[2023-12-10 09:06] LABS: Hematocrit 37.6 % (42.0-52.0); Hemoglobin 12.2 g/dL (14.0-18.0); Immature Platelet Fraction Pct 16.8 % (0.9-11.2); Mean Corpuscular HGB Conc 32.4 g/dl (32-36); Mean Corpuscular Hemoglobin 31.6 pg (26-34); Mean Corpuscular Volume 97.4 fl (80-100); Mean Platelet Volume 13.8 fl (7.4-10.4); Platelet Count Result 45 k/mm3 (150-375); Red Blood Count 3.86 M/mm3 (4.6-6.20); Red Cell Distribution Width 15.6 % (11.5-14.5); White Blood Count 9.7 K/mm3 (4.5-10.0)
--- NOTE | 2023-12-10 09:34 | PDONCCN ---
HPI - Date of Consult Date/Time: 12/10/23 12:43 <Andre Mccormack - 12/10/23 12:48> 12/10/23 09:34 <Shannon Kirkland - 12/10/23 09:44> Requesting Physician: Virginia Joshi MD <Andre Mccormack - 12/10/23 12:48> Virginia Joshi MD <Shannon Kirkland - 12/10/23 09:44> Primary Care Provider: Davey Reynolds MD <Andre Mccormack - 12/10/23 12:48> Davey Reynolds MD <Shannon Kirkland - 12/10/23 09:44> - Consult Narrative Reason for consult: Thrombocytopenia and lymphadenopathy <Shannon Kirkland - 12/10/23 09:44> Narrative: Sebastián Astudillo is a 68 year old male <Andre Mccormack - 12/10/23 12:48> Sebastián Astudillo is a 68 year old male with a past medical history of CAD, GERD, RA, HLD, who admits for bloody stools. He reports blood in his stool after going to the bathroom around midnight on Saturday night. He endorses dark red and black stools. He is supposed to get EGD and colonoscopy today. He uses aspirin but is not on anyother AC. He is has RA and is on MTX weekly. He follows with Dr Boothe at [facility]. He reports its been very hard to swallow and has had two strep throat infections recently. He now has thrush and has been started on nystatin. He is unable to eat or drink due to mouth pain. He feel as if the morphine is not helping. In general, he reports fatigue, rectal bleeding, intermittent fevers and nights sweats and anorexia due to throat pain. He has a past history of skin cancer and familial history of colon cancer. 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 He has a 1 pack/day smoking history for 43+ years. There is a concerning abd/pelvis CT scan for mesenteric and retroperitoneal lymphadenopathy possibly consistent with lymphoma, splenomegaly, hiatal hernia, nephrolithiasis. <Shannon Kirkland - 12/10/23 10:24> Review of Systems - Review of Systems All systems reviewed & are unremarkable except as noted in HPI and bel <Shannon Kirkland 12/10/23 09:50> - Neurologic Reports weakness, Denies behavioral changes, Denies confusion <MaritaShannon 12/10/23 09:44> [facility] Medical History: Medical History (Last Updated 12/09/23 @ 15:02 by Nabeel Kelly MD) CAD (coronary artery disease) Family history of colon cancer GERD (gastroesophageal reflux disease) History of insertion of hepatic arterial infusion pump HLD (hyperlipidemia) Immunocompromised Odynophagia Old ID (myocardial infarction) Rheumatoid arthritis Smoking <Andre Mccormack - 12/10/23 12:48> Medical History (Last Updated 12/09/23 @ 15:02 by Nabeel Kelly MD) CAD (coronary artery disease) Family history of colon cancer GERD (gastroesophageal reflux disease) History of insertion of hepatic arterial infusion pump HLD (hyperlipidemia) Immunocompromised Odynophagia Old ID (myocardial infarction) Rheumatoid arthritis Smoking <Shannon Kirkland 12/10/23 09:44> Surgical History: Surgical History (Last Reviewed 12/09/23 @ 13:54 by Jennifer Mead APRN) History of nasal septoplasty S/P coronary artery stent placement <Andre Mccormack - 12/10/23 12:48> Surgical History (Last Reviewed 12/09/23 @ 13:54 by Jennifer Mead APRN) History of nasal septoplasty S/P coronary artery stent placement <Shannon Kirkland 12/10/23 09:44> Family History: Family History (Last Reviewed 12/09/23 @ 13:54 by Jennifer Mead APRN) Mother Hypertension Carcinoma of colon <Andre Mccormack - 12/10/23 12:48> Family History (Last Reviewed 12/09/23 @ 13:54 by Jennifer Mead APRN) Mother Hypertension Carcinoma of colon <Shannon Kirkland 12/10/23 09:44> - Social History Social History: Social History (Last Reviewed 12/09/23 @ 13:54 by Jennifer L. [place], LAND RESOURCE SPECIALIST) Gender Identity: Gender identity (if verbalized by the patient): Male Sexual Orientation: Sexual Orienta
[2023-12-10 09:39] LABS: Iron 42 ug/dL (49-181)
[2023-12-10 09:49] LABS: Percent Iron Saturation 14 % (20-50)
[2023-12-10 10:22] LABS: Folic Acid 19.1 ng/mL (2.76->20)
[2023-12-10] MEDS: LACTATED RINGERS 1,000 ML 150 ML IV CONT (10:46)
--- NOTE | 2023-12-10 10:56 | WPDANESEPPF ---
Anes - Initial Pre Proc Eval Procedure: Operation Date: 12/10/23 15:30 Proposed Procedures p Esophagogastroduodenoscopy & Colonoscopy - Nabeel Kelly MD Date/Time: 12/10/23 10:56 Surgeon: Virginia Joshi MD Pre Op Diagnosis: rectal bleeding Patient Data Age: 68 Gender: M Height: 1.83 m Weight: 77 kg Last Vital Signs Temp 97.2 F L 12/10/23 10:43 Pulse 77 12/10/23 10:43 Resp 16 12/10/23 10:43 BP 107/72 12/10/23 10:43 Pulse Ox 97 12/10/23 10:43 O2 Del Method Room Air 12/10/23 10:43 FiO2 21 12/09/23 08:33 Allergies Allergy/AdvReac Type Severity Reaction Status Date / Time aspirin Allergy Mild Swelling Verified 12/10/23 10:42 Home Medications Medication Instructions Recorded Confirmed Type folic acid 1 mg tablet 1 mg PO DAILY 10/16/19 12/09/23 History methotrexate sodium 2.5 mg tablet 25 mg PO WEEKLY 10/16/19 12/09/23 History finasteride 1 mg tablet 1 mg PO DAILY #90 tabs 08/21/23 12/09/23 Rx golimumab 12.5 mg/mL intravenous 12.5 mg IV .[id number] 08/23/23 12/09/23 History solution (Simponi ARIA) metoprolol tartrate 50 mg tablet 25 mg PO Q12H #90 tabs 12/04/23 12/09/23 Rx acetaminophen 500 mg tablet 1,000 mg PO Q8H 12/09/23 12/09/23 History aspirin 81 mg tablet,delayed 81 mg PO DAILY 12/09/23 12/09/23 History release (Adult Low Dose Aspirin) multivitamin 1 tablet PO DAILY 12/09/23 12/09/23 History simvastatin 40 mg tablet 40 mg PO 1700 12/09/23 12/09/23 History Laboratory Tests 12/10/23 08:40 WBC 9.7 K/mm3 (4.5-10.0) RBC 3.86 L M/mm3 (4.6-6.20) Hgb 12.2 L g/dL (14.0-18.0) Hct 37.6 L % (42.0-52.0) MCV 97.4 fl (80-100) MCH 31.6 pg (26-34) MCHC 32.4 g/dl (32-36) RDW 15.6 H % (11.5-14.5) Plt Count 45 L k/mm3 (150-375) MPV 13.8 H fl (7.4-10.4) % Immature Plt Fraction 16.8 H % (0.9-11.2) Iron 42 L ug/dL (49-181) TIBC 290 ug/dL (265-497) % Saturation Pending Sarah Transferrin Receptr Pending Ferritin 416.00 H ng/mL (11.1-264) Vitamin B12 996.0 H pg/mL (239-931) Methylmalonic Acid Pending Folate 19.1 ng/mL (2.76->20) Direct Plt-Bound IgG Ab Pending Patient hx anesthesia problems: none Family hx anesthesia problems: none Results Review: All pre-operative results and documents have been reviewed as part of the pre-operative evaluation. [facility] Past Medical History Medical History CAD (coronary artery disease) Family history of colon cancer GERD (gastroesophageal reflux disease) History of insertion of hepatic arterial infusion pump HLD (hyperlipidemia) Immunocompromised Odynophagia Old [place] (myocardial infarction) Rheumatoid arthritis Smoking Surgical History Surgical History (Updated 12/10/23 @ 09:44 by Shannon Kirkland APRN) History of nasal septoplasty S/P coronary artery stent placement Family History Family History Mother Hypertension Carcinoma of colon Social History Social History Smoking packs per day: 1 Smoking cigarettes per day: 20.0 Years smoked: 40 Smoking pack-years: 40.00 Smoking status: Heavy tobacco smoker Tobacco type: cigarettes Second hand tobacco smoke exposure: No Alcohol intake: unknown Alcohol use details: rare Substance use: unknown Substance use type: does not use Do You Feel Safe in your Home?: Yes Lack of Transportation: No Lack of Food: Never True Current Housing: I Have Housing Concerned About Future Housing: No Difficulty Paying Gas/Electric Bills: No Difficulty Paying for Meds: No Currently Unemployed: YES Education: Associate Degree Difficulty w/ Childcare or Family Care: No Living arrangements: with family Occupation/Education: occupation Gender identity (if verbalized by the patient): Male Sexual Orientation (if Verbal
[2023-12-10 12:11] LABS: Lactate Dehydrogenase 284 U/L (120-246)
[2023-12-10 14:02] LABS: Immunoglobulin A 312 mg/dL (70-400); Immunoglobulin G 1103 mg/dL (700-1600); Immunoglobulin M 92 mg/dL (40-230)
[2023-12-10] MEDS: IRON SUCROSE COMPLEX 500 MG in SODIUM CHLORIDE 0.9% IV 250 ML 79 MG IVPB (14:37)
--- NOTE | 2023-12-10 14:37 | SUR.OPER ---
EGD: start 11:37, end 11:45 Colonoscopy: start 11:49, end 12:00
[2023-12-10] MEDS: HYDROmorphone HCL INJ (*CRX) 1 MG/ML SYR 0.5 MG IV PUSH (14:42)
[2023-12-10] MEDS: MAGNES & ALUM HYD/SIMETH/DIPHENHYD/LIDOCAINE 119 ML MOUTHWASH BY MOUTH ×3 (14:42→20:15)
[2023-12-10] MEDS: FLUCONAZOLE 100 MG TABLET 200 MG PO (14:50)
--- NOTE | 2023-12-10 15:46 | WPDPROCEDUR ---
Procedures Other Procedures Procedure 1: Other Procedure: flexible laryngoscopy all the consents obtained nose anesthetized Afrin lidocaine scope passed had nose overall looks okay nasopharynx overall looks okay right sorry left tongue base is slightly hypertrophied with compared to the right and then you know from the glottis up it looks completely normal. So overall on flexible laryngoscopy left-sided base hypertrophy.
--- NOTE | 2023-12-10 15:47 | WPDCN ---
Assessment and Plan Assessment and plan (1) Thrush: Code(s): B37.0 - Candidal stomatitis Status: Acute Assessment and Plan: oral examination appears consistent with thrush. I would or what I typically do was nystatin 4 mL q.i.d. gargle swish for several minutes swallow. Could consider adding oral fluconazole as well. Right tonsil larger than the left need to keep an eye on this as well as the left tongue base. I would like the patient to follow up with me within 2 weeks after discharge HPI Data of Consult Date/Time: 12/10/23 15:47 Requesting Physician: Virginia Joshi MD Primary Care Provider: Davey Reyonlds MD Consult Narrative Narrative: Sebastián Astudillo is a 68 year old male With oral pain. Patient is admitted low platelets he is bleeding. Receiving blood at bedside. CT looks okay my personal reading the CT neck I think there is little bit of tongue base hypertrophy or asymmetry could just be from the angle of the scan. Some hypodensity in the right tonsil looks to be intra tonsillar versus peritonsillar.. Otherwise some shotty lymphadenopathy Review of Systems Review of Systems: All systems reviewed & are unremarkable except as noted in HPI and below PMFSH Past Medical History Medical History CAD (coronary artery disease) Family history of colon cancer GERD (gastroesophageal reflux disease) History of insertion of hepatic arterial infusion pump HLD (hyperlipidemia) Immunocompromised Odynophagia Old [place] (myocardial infarction) Rheumatoid arthritis Smoking Surgical History Surgical History (Updated 12/10/23 @ 09:44 by Shannon Kirkland APRN) History of nasal septoplasty S/P coronary artery stent placement Family History Family History Mother Hypertension Carcinoma of colon Social History Social History Smoking packs per day: 1 Smoking cigarettes per day: 20.0 Years smoked: 40 Smoking pack-years: 40.00 Smoking status: Heavy tobacco smoker Tobacco type: cigarettes Second hand tobacco smoke exposure: No Alcohol intake: unknown Alcohol use details: rare Substance use: unknown Substance use type: does not use Do You Feel Safe in your Home?: Yes Lack of Transportation: No Lack of Food: Never True Current Housing: I Have Housing Concerned About Future Housing: No Difficulty Paying Gas/Electric Bills: No Difficulty Paying for Meds: No Currently Unemployed: YES Education: Associate Degree Difficulty w/ Childcare or Family Care: No Living arrangements: with family Occupation/Education: occupation Gender identity (if verbalized by the patient): Male Sexual Orientation (if Verbalized by the Patient): Straight or Heterosexual Spiritual care concerns: No Meds Home Medications and Allergies Home Medications Medication Instructions Recorded Confirmed Type folic acid 1 mg tablet 1 mg PO DAILY 10/16/19 12/09/23 History methotrexate sodium 2.5 mg tablet 25 mg PO WEEKLY 10/16/19 12/09/23 History finasteride 1 mg tablet 1 mg PO DAILY #90 tabs 08/21/23 12/09/23 Rx golimumab 12.5 mg/mL intravenous 12.5 mg IV .[id number] 08/23/23 12/09/23 History solution (Simponi ARIA) metoprolol tartrate 50 mg tablet 25 mg PO Q12H #90 tabs 12/04/23 12/09/23 Rx acetaminophen 500 mg tablet 1,000 mg PO Q8H 12/09/23 12/09/23 History aspirin 81 mg tablet,delayed 81 mg PO DAILY 12/09/23 12/09/23 History release (Adult Low Dose Aspirin) multivitamin 1 tablet PO DAILY 12/09/23 12/09/23 History simvastatin 40 mg tablet 40 mg PO 1700 12/09/23 12/09/23 History Allergies Allergy/AdvReac Type Severity Reaction Status Date / Time aspirin Allergy Mild Swelling Verified 12/10/23 10:42 Vital Signs Vital Signs - 24 hr 12/09/23 20:23 12/09/23 20:20 12/10/23 05:05 Temperature 36.9 C 37.1 C Pulse Rate 65 96 80 Respiratory Rate 16
[2023-12-10] MEDS: SUCRALFATE SUSP 100 MG/ML 10 ML UDC 1000 MG PO ×2 (17:25→20:14)
[2023-12-10] MEDS: SIMVASTATIN 20 MG TABLET 40 MG PO (17:25)
[2023-12-10] MEDS: PANTOPRAZOLE SODIUM IV 40 MG VIAL IV PUSH (20:14)
[2023-12-11] VITALS (13 sets, daily range): BP systolic 95–106; BP diastolic 48–65; PULSE 73–93; RESP 16–24; TEMP 36.2–39.2; O2SAT 92–97
[2023-12-11] MEDS: SUCRALFATE SUSP 100 MG/ML 10 ML UDC 1000 MG PO ×4 (06:33→21:59)
[2023-12-11] MEDS: MAGNES & ALUM HYD/SIMETH/DIPHENHYD/LIDOCAINE 119 ML MOUTHWASH BY MOUTH ×5 (06:33→22:03)
[2023-12-11 07:04] LABS: HIV 1/2 Ab P24 Ag Result Negative (Negative)
[2023-12-11] MEDS: PANTOPRAZOLE SODIUM IV 40 MG VIAL IV PUSH ×2 (08:34→21:59)
[2023-12-11] MEDS: NYSTATIN 100,000 UNITS/ML SUSP 5 ML ORAL.SUSP PO ×4 (08:34→21:59)
[2023-12-11 08:53] LABS: Basophils Percent Auto 0.5 % (0.2-1.2); Hematocrit 33.9 % (42.0-52.0); Hemoglobin 11.2 g/dL (14.0-18.0); Immature Granulocyte Percent A 1.2 % (0-0.5); Immature Platelet Fraction Pct 17.3 % (0.9-11.2); Lymphocytes Absolute Auto 2.28 K/mm3 (0.9-3.2); Lymphocytes Percent Auto 28.1 % (18.3-44.2); Mean Corpuscular Hemoglobin 32.7 pg (26-34); Mean Corpuscular Volume 98.8 fl (80-100); Monocytes Absolute Auto 1.6 K/mm3 (0.1-0.6); Monocytes Percent Auto 19.3 % (2.6-8.5); Neutrophils Absolute Auto 4.1 K/mm3 (1.3-6.7); Neutrophils Percent Auto 50.9 % (45.5-73.1); Red Blood Count 3.43 M/mm3 (4.6-6.20); Red Cell Distribution Width 15.5 % (11.5-14.5); White Blood Count 8.1 K/mm3 (4.5-10.0)
[2023-12-11 09:05] LABS: Alanine Aminotransferase 27 U/L (6-50); Albumin Level 2.8 g/dL (3.5-5.1); Alkaline Phosphatase 79 U/L (38-126); Anion Gap 1 mmol/L (4-12); Aspartate Amino Transferase 42 U/L (17-59); Bilirubin,Total 0.7 mg/dL (0.2-1.3); Blood Urea Nitrogen 21 mg/dL (9-20); Calcium 8.9 mg/dL (8.4-10.2); Carbon Dioxide 27 mmol/L (22-30); Chloride 102 mmol/L (98-107); Estimated CRCL calculation 52 ml/min; Estimated Glomerular Filt Rate 55; Glucose 95 mg/dL (65-110); Magnesium 2.3 mg/dL (1.6-2.3); Potassium 3.9 mmol/L (3.4-5.0); Sodium 130 mmol/L (137-145)
[2023-12-11 09:33] LABS: Platelet Count Result 20 k/mm3 (150-375)
--- NOTE | 2023-12-11 11:04 | PCNFU ---
Nutrition Follow-Up Complete: Inadequate energy intake related to NPO status as evidenced by current diet orders Goal:Diet order Pt current nutrition is pureed level 4, Ensure compact TID. Nutrition recommendation: add nutrition ice cream cups TID Last recorded weight is 77 kg. Bowel Motility: +BM 12/09 Labs Reviewed: Hgb:12.2, HCT:37.6, Alb:2.8, NA:130, GFR:55, BUN:21 Meds Noted: protonix Skin: no skin issues noted Additional Notes: Diet advanced to pureed level 4, ensure compact TID ordered, no intake as of yet due to procedures. Pt still c/o difficutly and pain swallowing due to thrush. Would like the try the nutrition ice cream cups. Ordered TID. Monitor diet orders, intake, wt, labs. Follow up in 3 days.
[2023-12-11] MEDS: METOPROLOL TARTRATE 25 MG TABLET PO (11:16)
[2023-12-11] MEDS: FLUCONAZOLE 100 MG TABLET PO (11:16)
--- NOTE | 2023-12-11 13:07 | PM.IMPN ---
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 -denies any n/v Hgb 14.3 12/10/2023 - EGD scheduled pending this a.m. - recheck BMP, CBC in the a.m. 12/10: EGD with gastritis, colonoscopy with findings of colonic ulcers and internal hemorrhoids but no active bleeding from any of these findings (2) Thrombocytopenia: Code(s): D69.6 - Thrombocytopenia, unspecified Status: Acute Assessment and Plan: 12/10: Platelet count down to 20,000. Ordered platelet transfusion as patient needs lymph node biopsy, concern for lymphoma with bone marrow involvement per oncology (3) Immunocompromised: Code(s): D84.9 - Immunodeficiency, unspecified Status: Acute Assessment and Plan: 12/10/23 - continue with plan Patient with history of rheumatoid arthritis on biologics -Hold home medication at this time 12/10: GI recommends holding all immunosuppressants at this time. (4) Rheumatoid arthritis: Code(s): M06.9 - Rheumatoid arthritis, unspecified Status: Acute Assessment and Plan: 12/10/2023 continue plan -hold home medication methotrexate p.o. (5) HLD (hyperlipidemia): Code(s): E78.5 - Hyperlipidemia, unspecified Status: Acute Assessment and Plan: -continue home medication - simvastatin 40 mg p.o. daily (6) CAD (coronary artery disease): Code(s): I25.10 - Atherosclerotic heart disease of [place] coronary artery without angina pectoris Status: Acute Assessment and Plan: stable, denies any chest pain -continue monitor vitals q 4 hrs (7) Esophageal ulcer: Code(s): K22.10 - Ulcer of esophagus without bleeding Status: Acute Assessment and Plan: Aphthous ulcer noted on EGD, gastritis also noted. Carafate and pantoprazole. (8) Colon ulcer: Code(s): K63.3 - Ulcer of intestine Status: Acute Assessment and Plan: Multiple colonic ulcers noted on colonoscopy hold all immunosuppressants at this time per recommendation Gastroenterology (9) Thrush: Code(s): B37.0 - Candidal stomatitis Status: Acute Assessment and Plan: Oral nystatin and oral fluconazole as recommended by ENT (10) Lymphadenopathy: Code(s): R59.1 - Generalized enlarged lymph nodes Status: Acute Assessment and Plan: Patient scheduled to undergo lymph node biopsy for possible lymphoma however platelets were low on 12/10. Will transfuse platelets and attempt biopsy when platelet count is amenable. Plan VTE Prophylaxis: SCDs DIET: Regular diet pureed with dietary supplements ordered Disposition: Patient require several more days in the hospital, improved platelet count so he can get biopsy and ability to intake better food and nutrition and fluids prior to considering discharge. Code Status: Director Of Social Services Spent With Patient Time with patient: Greater than 35 minutes Subjective Date/time seen: 12/11/23 13:07 Interval history: 12/08: Patient presented to the emergency room the [facility] with complaints of ongoing bloody stools that occurred 2 hours prior to arrival. Narrative: Patient is 68-year-old male with PMHx: of CAD, GERD, rheumatoid arthritis on biologics, history of UT with stent placement reported to the emergency room citing,? around midnight he went to the bathroom? this is when he noticed a large volume of blood with his bowel movement.? Patient endorsed dark red in color stools, he denies a history of GI bleed or anticoagulation use.? Patient did state that he takes baby aspirin da
--- NOTE | 2023-12-11 14:25 | WPDGIPROGNO ---
Progress Note: A&P Assessment and Plan (1) Colon ulcer: Code(s): K63.3 - Ulcer of intestine Status: Acute Assessment and Plan: noted multiple ulcers in colon, pending biopsies ? CMV, ischemic, malignancy, etc also noted lymphadenopathy- oncology on board (2) Esophageal ulcer: Code(s): K22.10 - Ulcer of esophagus without bleeding Status: Acute Assessment and Plan: pending bx this also can explain odynophagia ppi and carafate treated also with nystatin (he has thrush) (3) Odynophagia: Code(s): R13.10 - Dysphagia, unspecified Status: Acute (4) Thrombocytopenia: Code(s): D69.6 - Thrombocytopenia, unspecified Status: Acute Assessment and Plan: hematology on board, pending work up not longer on MTX (5) Rectal bleed: Code(s): K62.5 - Hemorrhage of anus and rectum Status: Acute Assessment and Plan: from colonoscopy findings (had several ulcers) (6) Thrush: Code(s): B37.0 - Candidal stomatitis Status: Acute Assessment and Plan: hiv negative (7) Lymphadenopathy: Code(s): R59.1 - Generalized enlarged lymph nodes Status: Acute (8) Rheumatoid arthritis: Code(s): M06.9 - Rheumatoid arthritis, unspecified Status: Acute (9) Immunocompromised: Code(s): D84.9 - Immunodeficiency, unspecified Status: Acute Assessment and Plan: biologic and mtx on hold Subjective Date/time seen: 12/11/23 14:25 Interval history: he is swallowing better today egd and colonoscopy with ulcer in esophagus/colon pending biopsies Review of Systems Review of Systems: All systems reviewed & are unremarkable except as noted in HPI and below Exam Const: General: comfortable and no acute distress HENMT: Face/Nose/Sinus: Normal nares present Eyes: Sclera: sclerae normal Neck: Neck: supple Resp: Auscultation: clear to auscultation bilaterally Cardio: Rate: regular rate Rhythm: regular rhythm GI: Inspection: non-distended GI Palp: Yes Soft to palpation and No Tenderness to palpation present (GI) Auscultation: normal bowel sounds Skin: General skin exam: normal color Neuro: Speech: normal speech Motor exam (neuro): 5/5 motor strength present throughout Extrem: General: normal to inspection Psych: Mental Status: mental status grossly normal Objective Data Vital Signs Vital Signs: Vital Signs - 24 hr 12/10/23 20:13 12/10/23 20:35 12/11/23 04:09 Temperature 99.9 F H 98.9 F Pulse Rate 86 89 93 Respiratory Rate 16 16 Blood Pressure 112/66 101/61 Pulse Oximetry 93 94 12/11/23 11:16 12/11/23 14:00 Temperature 99.7 F H Pulse Rate 80 87 Respiratory Rate 20 Blood Pressure 99/48 L Pulse Oximetry 95 Intake/Output Intake/Output: Intake & Output 12/08/23 12/09/23 12/10/23 12/11/23 23:59 23:59 23:59 23:59 Intake Total 1620 800 480 Output Total 300 Balance 1320 800 480 Meds/Results Medications: Active Medications Generic Name Dose Route Start Last Admin Trade Name Freq PRN Reason Stop Dose Admin Fluconazole 100 mg 12/11/23 09:00 12/11/23 11:16 Fluconazole 100 Mg Tablet PO 12/24/23 09:01 100 mg QAM DEREK Administration Hydromorphone HCl 0.5 mg 12/10/23 10:24 12/10/23 14:42 Hydromorphone Hcl Inj (*Crx) 1 Mg/Ml Syr IV PUSH 0.5 mg Q3H PRN Administration Pain 5-10 Sodium Chloride 250 mls @ 30 mls/hr 12/11/23 09:47 Normal Saline Iv IV CONT 12/11/23 18:06 .[id number] STA Lidocaine/Diphenhydr/Alum/Mg/Simeth 5 ml 12/10/23 13:00 12/11/23 12:07 Magnes & Alum Hyd/Simeth/Diphenhyd/Lidocaine 119 Ml Mouthwash BY MOUTH 01/09/24 12:59 5 ml Q4HR DEREK Administration Metoprolol Tartrate 25 mg 12/09/23 11:05 12/11/23 11:16 Metoprolol Tartrate 25 Mg Tablet PO 25 mg Q12HR DEREK Administration Nystatin 5 ml 12/09/23 13:00 12/11/23 12:07 Nystatin 100,000 Units/Ml Susp 5 Ml Oral.Susp PO 5 ml QID S
--- NOTE | 2023-12-11 15:10 | WPDANESPN ---
Anes - Prog Note Post-Op Date/Time: 12/11/23 15:10 Cardiovascular status: normal Respiratory status: normal Airway patency: baseline Mental status: baseline Post-Op hydration status: normal Vital Signs: Last Vital Signs Temp 37.6 C H 12/11/23 14:00 Pulse 87 12/11/23 14:00 Resp 20 12/11/23 14:00 BP 99/48 L 12/11/23 14:00 Pulse Ox 95 12/11/23 14:00 O2 Del Method Room Air 12/10/23 12:21 FiO2 21 12/09/23 08:33 Pain Score (VAS): Patient asleep. No nonverbal signs present at this time. I/O: Intake & Output 12/10/23 12/11/23 12/11/23 23:59 07:59 15:59 Intake Total 360 480 Balance 360 480 Laboratory Tests 12/11/23 06:01 12/11/23 06:01 12/11/23 12/11/23 12/11/23 06:01 06:03 06:04 WBC 8.1 RBC 3.43 L Hgb 11.2 L Hct 33.9 L MCV 98.8 MCH 32.7 MCHC 33.0 RDW 15.5 H Plt Count 20 L* D MPV TNP Immature Gran % (Auto) 1.2 H Neut % (Auto) 50.9 Lymph % (Auto) 28.1 [place] % (Auto) 19.3 H Eos % (Auto) 0.0 Baso % (Auto) 0.5 Lymph # (Auto) 2.28 [place] # (Auto) 1.6 H Eos # (Auto) 0.0 Baso # (Auto) 0.0 Abs Immat Gran (auto) 0.10 H Absolute Neuts (auto) 4.1 Absolute Nucleated RBC 0.000 Nucleated RBC % 0.0 % Immature Plt Fraction 17.3 H Sodium 130 L Potassium 3.9 Chloride 102 Carbon Dioxide 27 Anion Gap 1 L BUN 21 H D Creatinine 1.30 Estim Creat Clear Calc 52 Estimated GFR 55 L Glucose 95 Calcium 8.9 Magnesium 2.3 Total Bilirubin 0.7 AST 42 ALT 27 Alkaline Phosphatase 79 Total Protein 6.0 L Albumin 2.8 L Heparin-induced Plt Ab Hep-Induced Plt Ab Cmmt CMV IgM Ab Pending CMV DNA Quant PCR Pending CMV DNA Qnt Source Pending CMV Qnt PCR log IU/mL Pending HIV 1&2 Ab/P24 Ag 4thGn Negative TB Test (QFT) Gold Plus Pending TB Test (QFT) Nil TB Test Mitogen - Nil TB Test Ag - Nil 1 TB Test Ag - Nil 2 12/11/23 12/11/23 12/11/23 06:04 06:04 06:04 WBC RBC Hgb Hct MCV MCH MCHC RDW Plt Count MPV Immature Gran % (Auto) Neut % (Auto) Lymph % (Auto) [place] % (Auto) Eos % (Auto) Baso % (Auto) Lymph # (Auto) [place] # (Auto) Eos # (Auto) Baso # (Auto) Abs Immat Gran (auto) Absolute Neuts (auto) Absolute Nucleated RBC Nucleated RBC % % Immature Plt Fraction Sodium Potassium Chloride Carbon Dioxide Anion Gap BUN Creatinine Estim Creat Clear Calc Estimated GFR Glucose Calcium Magnesium Total Bilirubin AST ALT Alkaline Phosphatase Total Protein Albumin Heparin-induced Plt Ab Hep-Induced Plt Ab Cmmt CMV IgM Ab CMV DNA Quant PCR CMV DNA Qnt Source CMV Qnt PCR log IU/mL HIV 1&2 Ab/P24 Ag 4thGn TB Test (QFT) Gold Plus Pending TB Test (QFT) Nil Pending Pending TB Test Mitogen - Nil Pending Pending TB Test Ag - Nil 1 Pending TB Test Ag - Nil 2 12/11/23 12/11/23 12/11/23 06:04 06:04 10:12 WBC RBC Hgb Hct MCV MCH MCHC RDW Plt Count MPV Immature Gran % (Auto) Neut % (Auto) Lymph % (Auto) [place] % (Auto) Eos % (Auto) Baso % (Auto) Lymph # (Auto) [place] # (Auto) Eos # (Auto) Baso # (Auto) Abs Immat Gran (auto) Absolute Neuts (auto) Absolute Nucleated RBC Nucleated RBC % % Immature Plt Fraction Sodium Potassium Chloride Carbon Dioxide Anion Gap BUN Creatinine Estim Creat Clear Calc Estimated GFR Glucose Calcium Magnesium Total Bilirubin AST ALT Alkaline Phosphatase Total Protein Albumin Heparin-induced Plt Ab Pending Hep-Induced Plt Ab Cmmt Pending CMV IgM Ab CMV DNA Quant PCR CMV DNA Qnt Source CMV Qnt PCR log IU/mL HIV 1&2 Ab/P24 Ag 4thGn TB Test (QFT) Gold Plus TB Te
[2023-12-11] MEDS: SODIUM CHLORIDE 0.9% IV 250 ML 30 ML IV CONT (15:43)
[2023-12-11] MEDS: ACETAMINOPHEN ELIXIR 325 MG/10.15 ML UDC 650 MG PO (15:59)
[2023-12-11 17:25] LABS: Influenza A QL RT-PCR Negative (Negative); Influenza B QL RT-PCR Negative (Negative); RSV RNA, RT-PCR Negative (Negative); SARS-CoV-2 RNA PCR Negative (Negative)
[2023-12-11] MEDS: SIMVASTATIN 20 MG TABLET 40 MG PO (17:35)
[2023-12-11] MEDS: LACTATED RINGERS 1,000 ML 100 ML IV CONT (18:29)
[2023-12-11] MEDS: SODIUM CHLORIDE 0.9% INJ 10 ML (22:02)
[2023-12-11] MEDS: TUBING, BLOOD PLUM PUMP TUBING 1 EACH XX (22:04)
[2023-12-12] MEDS: LACTATED RINGERS 1,000 ML 100 ML IV CONT (03:55)
[2023-12-12 04:52] VITALS: BP 108/52; PULSE 107; RESP 16; TEMP 36.9; O2SAT 90
[2023-12-12] MEDS: MAGNES & ALUM HYD/SIMETH/DIPHENHYD/LIDOCAINE 119 ML MOUTHWASH BY MOUTH ×5 (06:00→21:44)
[2023-12-12] MEDS: SUCRALFATE SUSP 100 MG/ML 10 ML UDC 1000 MG PO ×4 (06:01→21:44)
[2023-12-12 07:36] LABS: Basophils Absolute Auto 0.1 K/mm3 (0.0-0.1); Basophils Percent Auto 0.6 % (0.2-1.2); Hematocrit 31.9 % (42.0-52.0); Hemoglobin 10.4 g/dL (14.0-18.0); Immature Granulocyte Absolute 0.14 K/mm3 (0.00-0.031); Immature Granulocyte Percent A 1.7 % (0-0.5); Immature Platelet Fraction Pct 20.7 % (0.9-11.2); Lymphocytes Absolute Auto 2.43 K/mm3 (0.9-3.2); Lymphocytes Percent Auto 30.1 % (18.3-44.2); Mean Corpuscular HGB Conc 32.6 g/dl (32-36); Mean Corpuscular Volume 98.2 fl (80-100); Monocytes Absolute Auto 0.9 K/mm3 (0.1-0.6); Monocytes Percent Auto 11.5 % (2.6-8.5); Neutrophils Absolute Auto 4.5 K/mm3 (1.3-6.7); Neutrophils Percent Auto 56.1 % (45.5-73.1); Platelet Count Result 36 k/mm3 (150-375); Red Blood Count 3.25 M/mm3 (4.6-6.20); Red Cell Distribution Width 15.3 % (11.5-14.5); White Blood Count 8.1 K/mm3 (4.5-10.0)
[2023-12-12 07:46] LABS: INR 1.3; Prothrombin Time 16.9 Seconds (11.1-14.7)
[2023-12-12 07:47] LABS: Partial Thromboplastin Time 47.7 Seconds (22.3-36.8)
[2023-12-12 07:55] LABS: Alanine Aminotransferase 28 U/L (6-50); Albumin Level 2.9 g/dL (3.5-5.1); Alkaline Phosphatase 79 U/L (38-126); Anion Gap 1 mmol/L (4-12); Aspartate Amino Transferase 49 U/L (17-59); Bilirubin,Total 0.8 mg/dL (0.2-1.3); Blood Urea Nitrogen 19 mg/dL (9-20); Calcium 8.8 mg/dL (8.4-10.2); Carbon Dioxide 28 mmol/L (22-30); Chloride 99 mmol/L (98-107); Estimated CRCL calculation 61 ml/min; Estimated Glomerular Filt Rate > 60; Glucose 103 mg/dL (65-110); Magnesium 2.1 mg/dL (1.6-2.3); Potassium 3.5 mmol/L (3.4-5.0); Sodium 128 mmol/L (137-145)
[2023-12-12 08:07] LABS: Large Platelets Present; Platelet Estimate Decreased (Adequate); Schistocytes None Seen
[2023-12-12] MEDS: PANTOPRAZOLE SODIUM IV 40 MG VIAL IV PUSH (08:52)
[2023-12-12 10:33] VITALS: PULSE 92
[2023-12-12] MEDS: METOPROLOL TARTRATE 25 MG TABLET PO ×2 (10:33→21:43)
[2023-12-12] MEDS: FLUCONAZOLE 100 MG TABLET PO (10:33)
[2023-12-12] MEDS: NYSTATIN 100,000 UNITS/ML SUSP 5 ML ORAL.SUSP PO ×4 (10:33→21:44)
[2023-12-12 11:11] LABS: Thyroid Stimulating Hormone Reflex 0.449 uIU/mL (0.465-4.68)
--- NOTE | 2023-12-12 11:18 | PM.IMPN ---
Progress Note: A&P Assessment and Plan (1) Esophageal ulcer: Code(s): K22.10 - Ulcer of esophagus without bleeding Status: Acute Assessment and Plan: Aphthous ulcer noted on EGD, gastritis also noted. Carafate and pantoprazole. Patient not eating or drinking enough to maintain well-hydrated or be able be discharged this time. (2) Hyponatremia: Code(s): E87.1 - Hypo-osmolality and hyponatremia Status: Acute Assessment and Plan: 12/11: Sodium dropped to 128 today. Additional labs including red cortisol and osmolality ordered as well as urine osmolality urine sodium urine urea and urine creatinine. Ordered protein electrophoresis. Challenging to balance because I do not want to use a fluid restriction as patient is only calorie intake is liquid at this point. Consider Nephrology consult if sodium continues to drop. (3) Thrush: Code(s): B37.0 - Candidal stomatitis Status: Acute Assessment and Plan: Oral nystatin and oral fluconazole as recommended by ENT (4) Lymphadenopathy: Code(s): R59.1 - Generalized enlarged lymph nodes Status: Acute Assessment and Plan: Patient scheduled to undergo lymph node biopsy for possible lymphoma however platelets were low on 12/10. Will transfuse platelets and attempt biopsy when platelet count is amenable. (5) Colon ulcer: Code(s): K63.3 - Ulcer of intestine Status: Acute Assessment and Plan: Multiple colonic ulcers noted on colonoscopy hold all immunosuppressants at this time per recommendation Gastroenterology (6) Rectal bleed: Code(s): K62.5 - Hemorrhage of anus and rectum Status: Acute Assessment and Plan: -c/o dark stools ongoing for past 2 days, ED exam that was performed with the presence of patient nurse as protection agent which revealed good rectal tone, no evidence of external hemorrhoids, rectal vault empty of stool making it difficult to assess stool color, patient did have a bright red blood on digital rectal exam. -denies any n/v Hgb 14.3 12/10/2023 - EGD scheduled pending this a.m. - recheck BMP, CBC in the a.m. 12/10: EGD with gastritis, colonoscopy with findings of colonic ulcers and internal hemorrhoids but no active bleeding from any of these findings (7) Thrombocytopenia: Code(s): D69.6 - Thrombocytopenia, unspecified Status: Acute Assessment and Plan: 12/10: Platelet count down to 20,000. Ordered platelet transfusion as patient needs lymph node biopsy, concern for lymphoma with bone marrow involvement per oncology 12/11: Platelet count 36 today. No further transfusion as IR is comfortable with this measurement for lymph node biopsy. Spoke with Dr. Davis who performed biopsy. Confirmed no further transfusion with Oncology TELEPHONIC CASE MANAGER Melani Kirkland. (8) Immunocompromised: Code(s): D84.9 - Immunodeficiency, unspecified Status: Acute Assessment and Plan: 12/10/23 - continue with plan Patient with history of rheumatoid arthritis on biologics -Hold home medication at this time 12/10: GI recommends holding all immunosuppressants at this time. (9) Rheumatoid arthritis: Code(s): M06.9 - Rheumatoid arthritis, unspecified Status: Acute Assessment and Plan: 12/10/2023 continue plan -hold home medication methotrexate p.o. (10) HLD (hyperlipidemia): Code(s): E78.5 - Hyperlipidemia, unspecified Status: Acute Assessment and Plan: -continue home medication - simvastatin 40 mg p.o. daily (11) CAD (coronary artery disease): Code(s): I25.10 - Atherosclerotic heart disease of [place] coronary artery without angina pectoris Status: Acute Assessment and Plan: stable, denies any chest pain -continue monitor vitals q 4 hrs Plan VTE Prophylaxis: SCDs DIET: Regular diet pureed with dietary supplements ordered Disposition: Patient require several more days in the hospital, improved pl
[2023-12-12] MEDS: ACETAMINOPHEN ELIXIR 325 MG/10.15 ML UDC 650 MG PO ×2 (11:27→21:43)
[2023-12-12 11:55] LABS: Creatinine Urine 145.6 mg/dL; Urea Random Urine 945 MG/DL
[2023-12-12 12:14] LABS: Sodium Urine Random 97 meq/L
[2023-12-12 14:00] VITALS: BP 120/50; PULSE 88; RESP 16; TEMP 37; O2SAT 96
--- NOTE | 2023-12-12 16:27 | WPDGIPROGNO ---
Progress Note: A&P Assessment and Plan (1) Colon ulcer: Code(s): K63.3 - Ulcer of intestine Status: Acute Assessment and Plan: noted multiple ulcers in colon, pending biopsies ? CMV, ischemic, malignancy, etc also noted lymphadenopathy and just bx Rt axilla- oncology on board (2) Esophageal ulcer: Code(s): K22.10 - Ulcer of esophagus without bleeding Status: Acute Assessment and Plan: pending bx this also can explain odynophagia ppi and carafate treated also with nystatin (he has thrush) (3) Odynophagia: Code(s): R13.10 - Dysphagia, unspecified Status: Acute (4) Thrombocytopenia: Code(s): D69.6 - Thrombocytopenia, unspecified Status: Acute Assessment and Plan: hematology on board, pending work up not longer on MTX (5) Rectal bleed: Code(s): K62.5 - Hemorrhage of anus and rectum Status: Acute Assessment and Plan: from colonoscopy findings (had several ulcers) (6) Thrush: Code(s): B37.0 - Candidal stomatitis Status: Acute Assessment and Plan: hiv negative (7) Lymphadenopathy: Code(s): R59.1 - Generalized enlarged lymph nodes Status: Acute (8) Rheumatoid arthritis: Code(s): M06.9 - Rheumatoid arthritis, unspecified Status: Acute (9) Immunocompromised: Code(s): D84.9 - Immunodeficiency, unspecified Status: Acute Assessment and Plan: biologic and mtx on hold Subjective Date/time seen: 12/12/23 16:27 Interval history: no major changes, had normal BM without bleeding still some odynophagia but eating pureed diet had bx of enlarged LN Review of Systems Review of Systems: All systems reviewed & are unremarkable except as noted in HPI and below Exam Const: General: comfortable and no acute distress HENMT: Face/Nose/Sinus: Normal nares present Eyes: Sclera: sclerae normal Neck: Neck: supple Resp: Auscultation: clear to auscultation bilaterally Cardio: Rate: regular rate Rhythm: regular rhythm GI: Inspection: non-distended GI Palp: Yes Soft to palpation and No Tenderness to palpation present (GI) Auscultation: normal bowel sounds Skin: General skin exam: normal color Neuro: Speech: normal speech Motor exam (neuro): 5/5 motor strength present throughout Extrem: General: normal to inspection Psych: Mental Status: mental status grossly normal Objective Data Vital Signs Vital Signs: Vital Signs - 24 hr 12/11/23 17:00 12/11/23 17:13 12/11/23 17:13 Temperature 100.4 F H 100.8 F H 100.8 F H Pulse Rate 88 86 86 Respiratory Rate 20 20 20 Blood Pressure 99/54 L 101/55 L 101/55 L Pulse Oximetry 92 94 94 Oxygen Delivery Oxygen Flow Rate 12/11/23 16:59 12/11/23 17:30 12/11/23 17:30 Temperature 100.8 F H 99 F 99 F Pulse Rate 87 87 Respiratory Rate 18 18 Blood Pressure 95/52 L 95/52 L Pulse Oximetry 96 96 Oxygen Delivery Oxygen Flow Rate 12/11/23 18:25 12/11/23 18:25 12/11/23 20:14 Temperature 98.3 F 98.3 F 97.2 F L Pulse Rate 73 73 73 Respiratory Rate 20 20 16 Blood Pressure 96/56 L 96/56 L 96/65 L Pulse Oximetry 97 97 97 Oxygen Delivery Oxygen Flow Rate 12/11/23 20:00 12/12/23 04:52 12/12/23 10:33 Temperature 98.4 F Pulse Rate 107 H 92 Respiratory Rate 16 Blood Pressure 108/52 L Pulse Oximetry 97 90 Oxygen Delivery Nasal Cannula Oxygen Flow Rate 2 12/12/23 08:53 12/12/23 14:00 Temperature 98.6 F Pulse Rate 88 Respiratory Rate 16 Blood Pressure 120/50 L Pulse Oximetry 96 Oxygen Delivery Room Air Oxygen Flow Rate Intake/Output Intake/Output: Intake & Output 12/09/23 12/10/23 12/11/23 12/12/23 23:59 23:59 23:59 23:59 Intake Total 5573 872 6872 1063.3 Output Total 300 Balance 7324 121 5344 1063.3 Meds/Results Medications: Active Medications Generic Name Dose Route Start Last Admin Trade Name Freq PRN Reason Stop Dose Admin Acetaminoph
[2023-12-12] MEDS: SIMVASTATIN 20 MG TABLET 40 MG PO (16:50)
--- NOTE | 2023-12-12 17:07 | PC.NURSE ---
Pt is up independent in the room. Pt reports chronic pain that has been treated with Tylenol. Pt states tylenol helped but did not take away pain. Pt educated to inform staff if pain returns. Pt has been compliant with care. Pt provided urine and stool sample today. Pt was able to get cleaned up with a sponge bath today. Pt IV began leaking, provider notified and ok with keeping out as long as pt is keeping oral intake up. Pt has been monitored for any changes in status. Will continue to monitor pt.
[2023-12-12 21:43] VITALS: PULSE 97
[2023-12-12 22:30] VITALS: BP 113/67; PULSE 97; RESP 16; TEMP 38.8; O2SAT 93
--- NOTE | 2023-12-12 22:50 | PM.EVENT ---
Event Note Event Note Event Note: Cross Coverage - Patient running 101F post-lymph node biopsy done today. - Meets SIRS criteria based on temp and HR. - Adding lactic and blood cultures. - Reviewed chart, CT showed 1. Moderate paraseptal predominant emphysema with irregular septal line thickening associated with the emphysematous changes at the bilateral lower lobes which could represent atelectasis, mild pulmonary edema or pneumonia in the acute setting or more chronic interstitial lung disease with either UIP or NSIP pattern. 2. Interval development of a few mildly enlarged bilateral axillary lymph nodes which could be reactive with differential including lymphoma or metastatic disease. 3. Large sliding-type hiatal hernia - viral pcr negative on 12/11 - adding UA w/reflex - suspect PNA or UTI as source, starting ceftriaxone and Zosyn. Not a good candidate for azithromycin due to being on 2 medications (fluconazole and Zofran) that have risk for QT prolongation, no EKG on file. - abx to be started post-urine collection
[2023-12-12 23:44] LABS: Lactic Acid Reflex 1.9 mmol/L (0.7-2.0)
[2023-12-13] VITALS (9 sets, daily range): BP systolic 90–101; BP diastolic 56–59; PULSE 71–88; RESP 14–20; TEMP 36.8–38.4; O2SAT 91–93
[2023-12-13] MEDS: SODIUM CHLORIDE 0.9% IV 100 ML (02:49)
[2023-12-13] MEDS: PIPERACILLIN/TAZ 4.5G/NS 100ML 4.5 GM/100 ML BAG IVPB ×3 (02:50→17:05)
[2023-12-13 02:54] LABS: Appearance Urine Clear (Clear); Bacteria Urine None Seen /hpf; Bilirubin Urine Negative (Negative); Blood Urine Trace (Negative); Color Urine Dark Yellow (Yellow); Glucose Urine UA Negative (Negative); Hyaline Casts Urine Present /lpf; Ketones Urine Negative (Negative); Leukocyte Esterase Ur Negative LEU/UL (Negative); Need Manual Microscopic Reviewed; Nitrate Urine Negative (Negative); Protein Urine 1+ mg/dL (Negative); RBC Urine 0-2 /hpf (0-2); Specific Grav Ur 1.028 (1.001-1.035); Squamous Epithelial Cell Urine Occasional /hpf (Few); WBC Urine 0-5 /hpf (0-3)
[2023-12-13 02:55] LABS: Add Urine Microscopic? YES
[2023-12-13] MEDS: SUCRALFATE SUSP 100 MG/ML 10 ML UDC 1000 MG PO ×4 (05:56→20:47)
[2023-12-13] MEDS: MAGNES & ALUM HYD/SIMETH/DIPHENHYD/LIDOCAINE 119 ML MOUTHWASH BY MOUTH ×5 (05:56→22:56)
[2023-12-13 07:03] LABS: Basophils Absolute Auto 0.1 K/mm3 (0.0-0.1); Basophils Percent Auto 0.5 % (0.2-1.2); Hematocrit 33.6 % (42.0-52.0); Hemoglobin 10.9 g/dL (14.0-18.0); Lymphocytes Absolute Auto 2.55 K/mm3 (0.9-3.2); Lymphocytes Percent Auto 26.4 % (18.3-44.2); Mean Corpuscular HGB Conc 32.4 g/dl (32-36); Mean Corpuscular Hemoglobin 31.8 pg (26-34); Monocytes Absolute Auto 1.5 K/mm3 (0.1-0.6); Monocytes Percent Auto 15.3 % (2.6-8.5); Neutrophils Absolute Auto 5.5 K/mm3 (1.3-6.7); Neutrophils Percent Auto 56.8 % (45.5-73.1); Platelet Count Result 38 k/mm3 (150-375); Red Blood Count 3.43 M/mm3 (4.6-6.20); Red Cell Distribution Width 15.6 % (11.5-14.5); White Blood Count 9.7 K/mm3 (4.5-10.0)
[2023-12-13 07:11] LABS: Alanine Aminotransferase 33 U/L (6-50); Albumin Level 2.8 g/dL (3.5-5.1); Alkaline Phosphatase 96 U/L (38-126); Anion Gap 0 mmol/L (4-12); Aspartate Amino Transferase 57 U/L (17-59); Bilirubin,Total 0.7 mg/dL (0.2-1.3); Blood Urea Nitrogen 20 mg/dL (9-20); Calcium 8.9 mg/dL (8.4-10.2); Carbon Dioxide 31 mmol/L (22-30); Chloride 99 mmol/L (98-107); Estimated CRCL calculation 56 ml/min; Estimated Glomerular Filt Rate 60; Glucose 94 mg/dL (65-110); Magnesium 2.2 mg/dL (1.6-2.3); Potassium 3.7 mmol/L (3.4-5.0); Sodium 130 mmol/L (137-145)
[2023-12-13 07:55] LABS: Large Platelets Present; Platelet Estimate Decreased (Adequate)
[2023-12-13 07:56] LABS: Anisocytosis 1+; Schistocytes None Seen
[2023-12-13] MEDS: FLUCONAZOLE 100 MG TABLET PO (09:26)
[2023-12-13] MEDS: METOPROLOL TARTRATE 25 MG TABLET PO ×2 (09:26→20:47)
[2023-12-13] MEDS: NYSTATIN 100,000 UNITS/ML SUSP 5 ML ORAL.SUSP PO ×4 (09:26→20:47)
[2023-12-13] MEDS: PANTOPRAZOLE SODIUM IV 40 MG VIAL IV PUSH ×2 (09:28→20:47)
[2023-12-13 10:03] LABS: Free T4 Free Thyroxine Reflex 1.26 ng/dL (0.78-2.19)
--- NOTE | 2023-12-13 10:26 | PCNFU ---
Nutrition Follow-Up Complete: Inadequate energy intake related to appetite as evidenced by pt report and charted intake Goal:PO intake greater than 50% of meals and supplements - New goal Pt current nutrition is Pureed, nutrition ice cream, Ensure compact TID. Nutrition recommendation: Advance to a regular diet, allow regular ice cream Last recorded weight is 77 kg. Bowel Motility: +BM 12/11 Labs Reviewed: Hgb:10.9, HCTL33.6, Alb:2.8, NA:130 Meds Noted: protonix, zofran Skin: no skin breakdown Additional Notes: Pt continues on a pureed diet, does not like the food or consistency, asking for upgrade to regular. Noted pureed was due to pt having thrush and not due to dysphagia. Spoke with nursing who will contact physician. Also stated he does not like the nutrition ice cream cups and would like regular ice cream as he will eat that better. Ok with Ensure compact on trays. Will make changes per pt request. Monitor diet orders, intake, wt, labs. Follow up in 3 days.
[2023-12-13] MEDS: SODIUM CHLORIDE 0.9% IV 1,000 ML 75 ML IV CONT (11:34)
[2023-12-13 12:22] LABS: Total Triiodothyronine (T3) 0.75 NG/ML (0.97-1.69)
[2023-12-13 13:13] LABS: CMV DNA Quant PCR IU/mL Not Detected; Cytomegalovirus DNA Quant PCR Not Detected log IU/mL; Cytomegalovirus DNA Source Serum
[2023-12-13 13:18] LABS: NIL 4.01 IU/mL; Quantiferon TB Plus, 1T NEGATIVE (NEGATIVE); TB1-NIL <0.00 IU/mL; TB2-NIL <0.00 IU/mL
[2023-12-13 15:01] LABS: Methylmalonic Acid 653 nmol/L (87-318)
[2023-12-13] MEDS: CLOTRIMAZOLE 10 MG TROC PO ×2 (15:43→20:47)
--- NOTE | 2023-12-13 16:15 | P.PNIM_ITS ---
Progress Note: A&P Assessment and Plan (1) Esophageal ulcer: Code(s): K22.10 - Ulcer of esophagus without bleeding Status: Acute Assessment and Plan: * Aphthous ulcer noted on EGD, gastritis also noted. * Carafate and pantoprazole. * GI following (2) Hyponatremia: Code(s): E87.1 - Hypo-osmolality and hyponatremia Status: Acute Assessment and Plan: * Sodium dropped to 130 today. * red cortisol pending * osmolality * urine osmolality, urine sodium urine urea and urine creatinine indicative of pre-renal (likely hypovolemia) in FEMA score * Ordered protein electrophoresis. * NaCL @ 75 ml as he is having poor intake * Consider Nephrology consult if sodium continues to drop. (3) Thrush: Code(s): B37.0 - Candidal stomatitis Status: Acute Assessment and Plan: * Oral nystatin and oral lozenges ordered * oral fluconazole as recommended by ENT * repeat throat culture today given recent history of strep, treated with amoxicillin (4) Lymphadenopathy: Code(s): R59.1 - Generalized enlarged lymph nodes Status: Acute Assessment and Plan: * lymph node biopsy for possible lymphoma done yesterday (5) Colon ulcer: Code(s): K63.3 - Ulcer of intestine Status: Acute Assessment and Plan: * Multiple colonic ulcers noted on colonoscopy hold all immunosuppressants at this time per recommendation Gastroenterology (6) Rectal bleed: Code(s): K62.5 - Hemorrhage of anus and rectum Status: Acute Assessment and Plan: -c/o dark stools ongoing for past 2 days, ED exam that was performed with the presence of patient nurse as database report writer which revealed good rectal tone, no evidence of external hemorrhoids, rectal vault empty of stool making it difficult to assess stool color, patient did have a bright red blood on digital rectal exam. * EGD with gastritis, colonoscopy with findings of colonic ulcers and internal hemorrhoids but no active bleeding from any of these findings (7) Thrombocytopenia: Code(s): D69.6 - Thrombocytopenia, unspecified Status: Acute Assessment and Plan: * Platelet count 38 today. * Confirmed no further transfusion with Oncology WOOD HEEL CEMENTER Melani Kirkland on 12/11 * continue to monitor (8) Immunocompromised: Code(s): D84.9 - Immunodeficiency, unspecified Status: Chronic Assessment and Plan: * Patient with history of rheumatoid arthritis on biologics * GI recommends holding all immunosuppressants at this time. (9) Rheumatoid arthritis: Code(s): M06.9 - Rheumatoid arthritis, unspecified Status: Acute Assessment and Plan: see above (10) HLD (hyperlipidemia): Code(s): E78.5 - Hyperlipidemia, unspecified Status: Chronic Assessment and Plan: -continue home medication - simvastatin 40 mg p.o. daily (11) CAD (coronary artery disease): Code(s): I25.10 - Atherosclerotic heart disease of [place] coronary artery without angina pectoris Status: Chronic Assessment and Plan: stable, denies any chest pain -continue monitor vitals q 4 hrs Subjective Date/time seen: 12/13/23 16:15 Interval history: Patient in no acute distress, but continues to be quite miserable due to this mouth and throat pain. He met SIRS criteria overnight with mild tachycardia and fever of 101. He has been afebrile since. May be some component of dehydration and reactive fever due to biopsy and history of autoimmune conditions
--- NOTE | 2023-12-13 16:15 | PM.IMPN ---
Progress Note: A&P Assessment and Plan (1) Esophageal ulcer: Code(s): K22.10 - Ulcer of esophagus without bleeding Status: Acute Assessment and Plan: Aphthous ulcer noted on EGD, gastritis also noted. Carafate and pantoprazole. GI following (2) Hyponatremia: Code(s): E87.1 - Hypo-osmolality and hyponatremia Status: Acute Assessment and Plan: Sodium dropped to 130 today. red cortisol pending osmolality urine osmolality, urine sodium urine urea and urine creatinine indicative of pre-renal (likely hypovolemia) in FEMA score Ordered protein electrophoresis. NaCL @ 75 ml as he is having poor intake Consider Nephrology consult if sodium continues to drop. (3) Thrush: Code(s): B37.0 - Candidal stomatitis Status: Acute Assessment and Plan: Oral nystatin and oral lozenges ordered oral fluconazole as recommended by ENT repeat throat culture today given recent history of strep, treated with amoxicillin (4) Lymphadenopathy: Code(s): R59.1 - Generalized enlarged lymph nodes Status: Acute Assessment and Plan: lymph node biopsy for possible lymphoma done yesterday (5) Colon ulcer: Code(s): K63.3 - Ulcer of intestine Status: Acute Assessment and Plan: Multiple colonic ulcers noted on colonoscopy hold all immunosuppressants at this time per recommendation Gastroenterology (6) Rectal bleed: Code(s): K62.5 - Hemorrhage of anus and rectum Status: Acute Assessment and Plan: -c/o dark stools ongoing for past 2 days, ED exam that was performed with the presence of patient nurse as director of health care marketing which revealed good rectal tone, no evidence of external hemorrhoids, rectal vault empty of stool making it difficult to assess stool color, patient did have a bright red blood on digital rectal exam. EGD with gastritis, colonoscopy with findings of colonic ulcers and internal hemorrhoids but no active bleeding from any of these findings (7) Thrombocytopenia: Code(s): D69.6 - Thrombocytopenia, unspecified Status: Acute Assessment and Plan: Platelet count 38 today. Confirmed no further transfusion with Oncology VACUUM FILTER OPERATOR Melani Kirkland on 12/11 continue to monitor (8) Immunocompromised: Code(s): D84.9 - Immunodeficiency, unspecified Status: Chronic Assessment and Plan: Patient with history of rheumatoid arthritis on biologics GI recommends holding all immunosuppressants at this time. (9) Rheumatoid arthritis: Code(s): M06.9 - Rheumatoid arthritis, unspecified Status: Acute Assessment and Plan: see above (10) HLD (hyperlipidemia): Code(s): E78.5 - Hyperlipidemia, unspecified Status: Chronic Assessment and Plan: -continue home medication - simvastatin 40 mg p.o. daily (11) CAD (coronary artery disease): Code(s): I25.10 - Atherosclerotic heart disease of [place] coronary artery without angina pectoris Status: Chronic Assessment and Plan: stable, denies any chest pain -continue monitor vitals q 4 hrs Subjective Date/time seen: 12/13/23 16:15 Interval history: Patient in no acute distress, but continues to be quite miserable due to this mouth and throat pain. He met SIRS criteria overnight with mild tachycardia and fever of 101. He has been afebrile since. May be some component of dehydration and reactive fever due to biopsy and history of autoimmune conditions without meds. Appreciate recs from hematology regarding platelets or if to f/u outpatient. Will continue to monitor for signs of infection and continue AB until BC have more time for growth. Review of Systems Review of Systems: All systems reviewed & are unremarkable except as noted in HPI and below Exam Narrative: General: Awake, alert, moderately ill-appearing, in no acute distress HEENT: PERRLA, EOMI; throat erythema, tongue with visibl
[2023-12-13] MEDS: SIMVASTATIN 20 MG TABLET 40 MG PO (17:06)
[2023-12-13 18:32] LABS: CMV IgM Antibody <30.00 AU/mL (<30.00)
--- NOTE | 2023-12-13 18:47 | PC.NURSE ---
Pt is A&O4 male who participates and contributes in plan of care. Pt was started on mycelex, fluids, and abx. Pt had throat culture done today, waiting for results. Pt has been up independently. Pt at bedside. Pt diet advanced and tolerating well. Pt has been monitored for any changes in status while here. Will continue to monitor pt.
[2023-12-13] MEDS: ACETAMINOPHEN ELIXIR 325 MG/10.15 ML UDC 650 MG PO (20:54)
[2023-12-13 21:14] LABS: Heparin Induced Platelet Antib Weak Positive (Negative)
[2023-12-14] VITALS (8 sets, daily range): BP systolic 102–140; BP diastolic 54–85; PULSE 72–79; RESP 16–19; TEMP 36.9–38.2; O2SAT 93–97
[2023-12-14] MEDS: SODIUM CHLORIDE 0.9% IV 1,000 ML 75 ML IV CONT ×2 (00:09→17:52)
[2023-12-14] MEDS: PIPERACILLIN/TAZ 4.5G/NS 100ML 4.5 GM/100 ML BAG IVPB ×4 (00:10→16:32)
[2023-12-14] MEDS: MAGNES & ALUM HYD/SIMETH/DIPHENHYD/LIDOCAINE 119 ML MOUTHWASH BY MOUTH ×6 (02:34→20:36)
[2023-12-14] MEDS: SUCRALFATE SUSP 100 MG/ML 10 ML UDC 1000 MG PO ×4 (05:23→20:34)
[2023-12-14 07:08] LABS: Basophils Percent Auto 0.4 % (0.2-1.2); Eosinophils Percent Auto 0.3 % (0-4.4); Hematocrit 33.5 % (42.0-52.0); Hemoglobin 10.6 g/dL (14.0-18.0); Immature Granulocyte Absolute 0.07 K/mm3 (0.00-0.031); Immature Platelet Fraction Pct 28.9 % (0.9-11.2); Lymphocytes Absolute Auto 1.55 K/mm3 (0.9-3.2); Lymphocytes Percent Auto 23.2 % (18.3-44.2); Mean Corpuscular HGB Conc 31.6 g/dl (32-36); Mean Corpuscular Hemoglobin 31.5 pg (26-34); Mean Corpuscular Volume 99.7 fl (80-100); Monocytes Percent Auto 15.5 % (2.6-8.5); Neutrophils Percent Auto 59.6 % (45.5-73.1); Platelet Count Result 31 k/mm3 (150-375); Red Blood Count 3.36 M/mm3 (4.6-6.20); Red Cell Distribution Width 15.8 % (11.5-14.5); White Blood Count 6.7 K/mm3 (4.5-10.0)
[2023-12-14 07:13] LABS: Alanine Aminotransferase 38 U/L (6-50); Albumin Level 2.7 g/dL (3.5-5.1); Alkaline Phosphatase 98 U/L (38-126); Anion Gap 4 mmol/L (4-12); Aspartate Amino Transferase 62 U/L (17-59); Bilirubin,Total 0.8 mg/dL (0.2-1.3); Blood Urea Nitrogen 18 mg/dL (9-20); Calcium 8.9 mg/dL (8.4-10.2); Carbon Dioxide 29 mmol/L (22-30); Chloride 100 mmol/L (98-107); Estimated CRCL calculation 52 ml/min; Estimated Glomerular Filt Rate 55; Glucose 89 mg/dL (65-110); Magnesium 2.2 mg/dL (1.6-2.3); Potassium 3.3 mmol/L (3.4-5.0); Sodium 133 mmol/L (137-145)
--- NOTE | 2023-12-14 08:07 | P.PNIM_ITS ---
Progress Note: A&P Assessment and Plan (1) Esophageal ulcer: Code(s): K22.10 - Ulcer of esophagus without bleeding Status: Acute Assessment and Plan: 12/13/2023 * Aphthous ulcer noted on EGD, gastritis also noted. * Carafate and pantoprazole. * GI following 12/14/2023: * Continue with current treatment plan (2) Hyponatremia: Code(s): E87.1 - Hypo-osmolality and hyponatremia Status: Acute Assessment and Plan: 12/13/23: * Sodium dropped to 130 today. * red cortisol pending * osmolality * urine osmolality, urine sodium urine urea and urine creatinine indicative of pre-renal (likely hypovolemia) in FEMA score * Ordered protein electrophoresis. * NaCL @ 75 ml as he is having poor intake * Consider Nephrology consult if sodium continues to drop. 12/14/2023: * Sodium 133 * Can be due to hypovolemia or SIADH in the appropriate setting * Serum and urine osmolarity pending * Continue IV fluids for now * Random cortisol level 19.6 * Continue to trend (3) Thrush: Code(s): B37.0 - Candidal stomatitis Status: Acute Assessment and Plan: 12/13/2023: * Oral nystatin and oral lozenges ordered * oral fluconazole as recommended by ENT * repeat throat culture today given recent history of strep, treated with amoxicillin 12/14/2023: Continue with current treatment plan (4) Lymphadenopathy: Code(s): R59.1 - Generalized enlarged lymph nodes Status: Acute Assessment and Plan: 12/13/2023: * lymph node biopsy for possible lymphoma done yesterday 12/14/2023: Pathology pending (5) Colon ulcer: Code(s): K63.3 - Ulcer of intestine Status: Acute Assessment and Plan: 12/13/2023: * Multiple colonic ulcers noted on colonoscopy hold all immunosuppressants at this time per recommendation Gastroenterology 12/14/2023: * Continue Carafate and Protonix * GI following (6) Rectal bleed: Code(s): K62.5 - Hemorrhage of anus and rectum Status: Acute Assessment and Plan: 12/13/2023: -c/o dark stools ongoing for past 2 days, ED exam that was performed with the presence of patient nurse as filenet admin which revealed good rectal tone, no evidence of external hemorrhoids, rectal vault empty of stool making it difficult to assess stool color, patient did have a bright red blood on digital rectal exam. * EGD with gastritis, colonoscopy with findings of colonic ulcers and internal hemorrhoids but no active bleeding from any of these findings 12/14/2023: * Rectal bleeding has resolved * Continue Carafate and Protonix (7) Thrombocytopenia: Code(s): D69.6 - Thrombocytopenia, unspecified Status: Acute Assessment and Plan: 12/13/2023 * Platelet count 38 today. * Confirmed no further transfusion with Oncology INSPECTOR GLASS OR MIRROR Melani Kirkland on 12/11 * continue to monitor 12/14/2023: * Platelet count 31 * Continue to trend * Oncology following (8) Immunocompromised: Code(s): D84.9 - Immunodeficiency, unspecified Status: Chronic Assessment and Plan: 12/13/2023 * Patient with history of rheumatoid arthritis on biologics * GI recommends holding all immunosuppressants at this time. 12/14/2023: * No change to current treatment plan (9) Rheumatoid arthritis: Code(s): M06.9 - Rheumatoid arthritis, unspecified Status: Acute Assessment and Plan: see above (10) HLD (hyperlipidemia): Code(s):
--- NOTE | 2023-12-14 08:07 | PM.IMPN ---
Progress Note: A&P Assessment and Plan (1) Esophageal ulcer: Code(s): K22.10 - Ulcer of esophagus without bleeding Status: Acute Assessment and Plan: 12/13/2023 Aphthous ulcer noted on EGD, gastritis also noted. Carafate and pantoprazole. GI following 12/14/2023: Continue with current treatment plan (2) Hyponatremia: Code(s): E87.1 - Hypo-osmolality and hyponatremia Status: Acute Assessment and Plan: 12/13/23: Sodium dropped to 130 today. red cortisol pending osmolality urine osmolality, urine sodium urine urea and urine creatinine indicative of pre-renal (likely hypovolemia) in FEMA score Ordered protein electrophoresis. NaCL @ 75 ml as he is having poor intake Consider Nephrology consult if sodium continues to drop. 12/14/2023: Sodium 133 Can be due to hypovolemia or SIADH in the appropriate setting Serum and urine osmolarity pending Continue IV fluids for now Random cortisol level 19.6 Continue to trend (3) Thrush: Code(s): B37.0 - Candidal stomatitis Status: Acute Assessment and Plan: 12/13/2023: Oral nystatin and oral lozenges ordered oral fluconazole as recommended by ENT repeat throat culture today given recent history of strep, treated with amoxicillin 12/14/2023: Continue with current treatment plan (4) Lymphadenopathy: Code(s): R59.1 - Generalized enlarged lymph nodes Status: Acute Assessment and Plan: 12/13/2023: lymph node biopsy for possible lymphoma done yesterday 12/14/2023: Pathology pending (5) Colon ulcer: Code(s): K63.3 - Ulcer of intestine Status: Acute Assessment and Plan: 12/13/2023: Multiple colonic ulcers noted on colonoscopy hold all immunosuppressants at this time per recommendation Gastroenterology 12/14/2023: Continue Carafate and Protonix GI following (6) Rectal bleed: Code(s): K62.5 - Hemorrhage of anus and rectum Status: Acute Assessment and Plan: 12/13/2023: -c/o dark stools ongoing for past 2 days, ED exam that was performed with the presence of patient nurse as principal investigator which revealed good rectal tone, no evidence of external hemorrhoids, rectal vault empty of stool making it difficult to assess stool color, patient did have a bright red blood on digital rectal exam. EGD with gastritis, colonoscopy with findings of colonic ulcers and internal hemorrhoids but no active bleeding from any of these findings 12/14/2023: Rectal bleeding has resolved Continue Carafate and Protonix (7) Thrombocytopenia: Code(s): D69.6 - Thrombocytopenia, unspecified Status: Acute Assessment and Plan: 12/13/2023 Platelet count 38 today. Confirmed no further transfusion with Oncology CLAY MIXER Melani Kirkland on 12/11 continue to monitor 12/14/2023: Platelet count 31 Continue to trend Oncology following (8) Immunocompromised: Code(s): D84.9 - Immunodeficiency, unspecified Status: Chronic Assessment and Plan: 12/13/2023 Patient with history of rheumatoid arthritis on biologics GI recommends holding all immunosuppressants at this time. 12/14/2023: No change to current treatment plan (9) Rheumatoid arthritis: Code(s): M06.9 - Rheumatoid arthritis, unspecified Status: Acute Assessment and Plan: see above (10) HLD (hyperlipidemia): Code(s): E78.5 - Hyperlipidemia, unspecified Status: Chronic Assessment and Plan: 12/13/2023 -continue home medication - simvastatin 40 mg p.o. daily 12/14/2023: No change to current treatment plan (11) CAD (coronary artery disease): Code(s): I25.10 - Atherosclerotic heart disease of [place] coronary artery without angina pectoris Status: Chronic Assessment and Plan: 12/13/2023: stable, denies any chest pain -continue monitor vitals q 4 hrs 12/14/2023: No change to current treatment pl
[2023-12-14 08:38] LABS: Anisocytosis 1+; Ovalocytes 1+; Platelet Estimate Decreased (Adequate)
[2023-12-14 08:39] LABS: Schistocytes None Seen
[2023-12-14] MEDS: PANTOPRAZOLE SODIUM IV 40 MG VIAL IV PUSH ×2 (09:34→20:35)
[2023-12-14] MEDS: FLUCONAZOLE 100 MG TABLET PO (09:34)
[2023-12-14] MEDS: CLOTRIMAZOLE 10 MG TROC PO ×5 (09:34→20:32)
[2023-12-14] MEDS: NYSTATIN 100,000 UNITS/ML SUSP 5 ML ORAL.SUSP PO ×4 (09:34→20:34)
[2023-12-14] MEDS: METOPROLOL TARTRATE 25 MG TABLET PO ×2 (09:35→20:32)
[2023-12-14] MEDS: POTASSIUM CHLORIDE 20 MEQ ER TABLET 40 MEQ PO (09:47)
[2023-12-14] MEDS: ACETAMINOPHEN ELIXIR 325 MG/10.15 ML UDC 650 MG PO (09:47)
--- NOTE | 2023-12-14 11:01 | WPDGIPROGNO ---
Progress Note: A&P Assessment and Plan (1) Colon ulcer: Code(s): K63.3 - Ulcer of intestine Status: Acute Assessment and Plan: noted multiple ulcers in colon, pending biopsies ? CMV, ischemic, malignancy, etc also noted lymphadenopathy and had bx Rt axilla- oncology on board pathology still pending gib resolved serology for CMV, hiv negative will follow as needed (2) Esophageal ulcer: Code(s): K22.10 - Ulcer of esophagus without bleeding Status: Acute Assessment and Plan: pending bx this also can explain odynophagia ppi and carafate treated also with nystatin (he has thrush) (3) Odynophagia: Code(s): R13.10 - Dysphagia, unspecified Status: Acute Assessment and Plan: improved (4) Thrombocytopenia: Code(s): D69.6 - Thrombocytopenia, unspecified Status: Acute Assessment and Plan: hematology on board, pending work up not longer on MTX (5) Rectal bleed: Code(s): K62.5 - Hemorrhage of anus and rectum Status: Acute Assessment and Plan: from colonoscopy findings (had several ulcers) (6) Thrush: Code(s): B37.0 - Candidal stomatitis Status: Acute Assessment and Plan: hiv negative (7) Lymphadenopathy: Code(s): R59.1 - Generalized enlarged lymph nodes Status: Acute (8) Rheumatoid arthritis: Code(s): M06.9 - Rheumatoid arthritis, unspecified Status: Acute (9) Immunocompromised: Code(s): D84.9 - Immunodeficiency, unspecified Status: Chronic Assessment and Plan: biologic and mtx on hold Subjective Date/time seen: 12/14/23 11:01 Interval history: no changes no gib Review of Systems Review of Systems: All systems reviewed & are unremarkable except as noted in HPI and below Exam Const: General: comfortable and no acute distress HENMT: Face/Nose/Sinus: Normal nares present Eyes: General: appearance normal, both eyes and all related structures Neck: Neck: no JVD Resp: Auscultation: clear to auscultation bilaterally Cardio: Rate: regular rate Rhythm: regular rhythm GI: Inspection: non-distended GI Palp: Yes Soft to palpation Skin: General skin exam: normal color Neuro: General: gait normal Speech: normal speech Extrem: General: normal to inspection Psych: Mental Status: mental status grossly normal Objective Data Vital Signs Vital Signs: Vital Signs - 24 hr 12/13/23 14:00 12/13/23 20:47 12/13/23 20:54 Temperature 99.7 F H 101.2 F H Pulse Rate 88 81 Respiratory Rate 14 Blood Pressure 90/56 L Pulse Oximetry 91 Oxygen Delivery 12/13/23 21:42 12/13/23 20:00 12/13/23 22:22 Temperature 101.2 F H 99.9 F H Pulse Rate 88 Respiratory Rate 20 Blood Pressure 97/59 L Pulse Oximetry 92 Oxygen Delivery Room Air 12/13/23 22:23 12/13/23 23:35 12/14/23 06:00 Temperature 99.9 F H 98.3 F 98.4 F Pulse Rate 72 Respiratory Rate 19 Blood Pressure 110/62 Pulse Oximetry 93 Oxygen Delivery 12/14/23 09:35 12/14/23 09:47 12/14/23 09:30 Temperature 100.7 F H Pulse Rate 75 Respiratory Rate Blood Pressure Pulse Oximetry Oxygen Delivery Room Air 12/14/23 09:45 Temperature 100.7 F H Pulse Rate 75 Respiratory Rate 18 Blood Pressure 102/54 L Pulse Oximetry 97 Oxygen Delivery Intake/Output Intake/Output: Intake & Output 12/11/23 12/12/23 12/13/23 12/14/23 23:59 23:59 23:59 23:59 Intake Total 1262 1303.3 1470 1803.7 Balance 1262 1303.3 1470 1803.7 Meds/Results Medications: Active Medications Generic Name Dose Route Start Last Admin Trade Name Freq PRN Reason Stop Dose Admin Acetaminophen 650 mg 12/11/23 19:50 12/14/23 09:47 Acetaminophen Elixir 325 Mg/10.15 Ml Udc PO 650 mg Q4H PRN Administration pain or Fever Hydrocodone Bitart/Acetaminophen 1 tab 12/12/23 11:20 Hydrocodone/Acetaminophen (*Crx) 7.5-325 Mg Tablet PO Q6H PRN
[2023-12-14] MEDS: SIMVASTATIN 20 MG TABLET 40 MG PO (16:35)
[2023-12-15] VITALS (10 sets, daily range): BP systolic 96–130; BP diastolic 62–75; PULSE 65–95; RESP 18–20; TEMP 36.1–37.9; O2SAT 92–100
[2023-12-15] MEDS: PIPERACILLIN/TAZ 4.5G/NS 100ML 4.5 GM/100 ML BAG IVPB ×3 (00:15→13:02)
[2023-12-15] MEDS: MAGNES & ALUM HYD/SIMETH/DIPHENHYD/LIDOCAINE 119 ML MOUTHWASH BY MOUTH ×6 (00:16→20:15)
[2023-12-15] MEDS: SUCRALFATE SUSP 100 MG/ML 10 ML UDC 1000 MG PO ×4 (05:09→20:14)
[2023-12-15 07:09] LABS: Basophils Percent Auto 0.7 % (0.2-1.2); Eosinophils Percent Auto 0.2 % (0-4.4); Hematocrit 28.9 % (42.0-52.0); Hemoglobin 9.4 g/dL (14.0-18.0); Immature Granulocyte Absolute 0.04 K/mm3 (0.00-0.031); Immature Granulocyte Percent A 0.7 % (0-0.5); Immature Platelet Fraction Pct 25.8 % (0.9-11.2); Lymphocytes Absolute Auto 2.27 K/mm3 (0.9-3.2); Lymphocytes Percent Auto 37.5 % (18.3-44.2); Mean Corpuscular HGB Conc 32.5 g/dl (32-36); Mean Corpuscular Hemoglobin 31.9 pg (26-34); Monocytes Absolute Auto 1.1 K/mm3 (0.1-0.6); Monocytes Percent Auto 17.7 % (2.6-8.5); Neutrophils Absolute Auto 2.6 K/mm3 (1.3-6.7); Neutrophils Percent Auto 43.2 % (45.5-73.1); Red Blood Count 2.95 M/mm3 (4.6-6.20); Red Cell Distribution Width 15.6 % (11.5-14.5); White Blood Count 6.1 K/mm3 (4.5-10.0)
[2023-12-15 07:20] LABS: Alanine Aminotransferase 48 U/L (6-50); Albumin Level 2.4 g/dL (3.5-5.1); Alkaline Phosphatase 119 U/L (38-126); Anion Gap 3 mmol/L (4-12); Aspartate Amino Transferase 74 U/L (17-59); Bilirubin,Total 0.6 mg/dL (0.2-1.3); Blood Urea Nitrogen 14 mg/dL (9-20); Calcium 8.3 mg/dL (8.4-10.2); Carbon Dioxide 26 mmol/L (22-30); Chloride 100 mmol/L (98-107); Estimated CRCL calculation 52 ml/min; Estimated Glomerular Filt Rate 55; Glucose 89 mg/dL (65-110); Potassium 3.4 mmol/L (3.4-5.0); Sodium 129 mmol/L (137-145)
[2023-12-15 07:52] LABS: Platelet Count Result 22 k/mm3 (150-375)
[2023-12-15 07:53] LABS: Anisocytosis 1+; Atypical Lymphocytes Present; Platelet Estimate Decreased (Adequate); Schistocytes None Seen
[2023-12-15] MEDS: PANTOPRAZOLE SODIUM IV 40 MG VIAL IV PUSH (08:22)
[2023-12-15] MEDS: CLOTRIMAZOLE 10 MG TROC PO ×5 (08:22→20:13)
[2023-12-15] MEDS: FLUCONAZOLE 100 MG TABLET PO (08:22)
[2023-12-15] MEDS: SODIUM CHLORIDE 0.9% IV 1,000 ML 75 ML IV CONT (08:22)
[2023-12-15] MEDS: NYSTATIN 100,000 UNITS/ML SUSP 5 ML ORAL.SUSP PO ×4 (08:23→20:14)
--- NOTE | 2023-12-15 11:30 | P.PNIM_ITS ---
Progress Note: A&P Assessment and Plan (1) Esophageal ulcer: Code(s): K22.10 - Ulcer of esophagus without bleeding Status: Acute Assessment and Plan: 12/13/2023 * Aphthous ulcer noted on EGD, gastritis also noted. * Carafate and pantoprazole. * GI following 12/14/2023: * Continue with current treatment plan 12/14: Change pantoprazole to oral, additional Ensure with each meal (2) Hyponatremia: Code(s): E87.1 - Hypo-osmolality and hyponatremia Status: Acute Assessment and Plan: 12/13/23: * Sodium dropped to 130 today. * red cortisol pending * osmolality * urine osmolality, urine sodium urine urea and urine creatinine indicative of pre-renal (likely hypovolemia) in FEMA score * Ordered protein electrophoresis. * NaCL @ 75 ml as he is having poor intake * Consider Nephrology consult if sodium continues to drop. 12/14/2023: * Sodium 133 * Can be due to hypovolemia or SIADH in the appropriate setting * Serum and urine osmolarity pending * Continue IV fluids for now * Random cortisol level 19.6 * Continue to trend 12/14: Sodium 129 today has been ranging 128-133 since hospitalization, Discontinue IV fluids as patient is finally beginning to take adequate oral intake. (3) Thrush: Code(s): B37.0 - Candidal stomatitis Status: Acute Assessment and Plan: 12/13/2023: * Oral nystatin and oral lozenges ordered * oral fluconazole as recommended by ENT * repeat throat culture today given recent history of strep, treated with amoxicillin 12/14/2023: Continue with current treatment plan 12/14: Improving after addition of oral clotrimazole troches (4) Lymphadenopathy: Code(s): R59.1 - Generalized enlarged lymph nodes Status: Acute Assessment and Plan: 12/13/2023: * lymph node biopsy for possible lymphoma done yesterday 12/14/2023: Pathology pending (5) Colon ulcer: Code(s): K63.3 - Ulcer of intestine Status: Acute Assessment and Plan: 12/13/2023: * Multiple colonic ulcers noted on colonoscopy hold all immunosuppressants at this time per recommendation Gastroenterology 12/14/2023: * Continue Carafate and Protonix * GI following (6) Rectal bleed: Code(s): K62.5 - Hemorrhage of anus and rectum Status: Acute Assessment and Plan: 12/13/2023: -c/o dark stools ongoing for past 2 days, ED exam that was performed with the presence of patient nurse as client services account manager which revealed good rectal tone, no evidence of external hemorrhoids, rectal vault empty of stool making it difficul t to assess stool color, patient did have a bright red blood on digital rectal exam. * EGD with gastritis, colonoscopy with findings of colonic ulcers and internal hemorrhoids but no active bleeding from any of these findings 12/14/2023: * Rectal bleeding has resolved * Continue Carafate and Protonix (7) Thrombocytopenia: Code(s): D69.6 - Thrombocytopenia, unspecified Status: Acute Assessment and Plan: 12/13/2023 * Platelet count 38 today. * Confirmed no further transfusion with Oncology COOKER OPERATOR Melani Kirkland on 12/11 * continue to monitor 12/14/2023: * Platelet count 31 * Continue to trend * Oncology following 12/14: Platelet count down to 22, transfused platelets again today. Will discuss with Heme/Onc again tomorrow (8) Immunocompromised: Code(s): D84.9 - Immunodeficiency, unspecified Status: Chronic Assessment and Plan:
--- NOTE | 2023-12-15 11:30 | PM.IMPN ---
Progress Note: A&P Assessment and Plan (1) Esophageal ulcer: Code(s): K22.10 - Ulcer of esophagus without bleeding Status: Acute Assessment and Plan: 12/13/2023 Aphthous ulcer noted on EGD, gastritis also noted. Carafate and pantoprazole. GI following 12/14/2023: Continue with current treatment plan 12/14: Change pantoprazole to oral, additional Ensure with each meal (2) Hyponatremia: Code(s): E87.1 - Hypo-osmolality and hyponatremia Status: Acute Assessment and Plan: 12/13/23: Sodium dropped to 130 today. red cortisol pending osmolality urine osmolality, urine sodium urine urea and urine creatinine indicative of pre-renal (likely hypovolemia) in FEMA score Ordered protein electrophoresis. NaCL @ 75 ml as he is having poor intake Consider Nephrology consult if sodium continues to drop. 12/14/2023: Sodium 133 Can be due to hypovolemia or SIADH in the appropriate setting Serum and urine osmolarity pending Continue IV fluids for now Random cortisol level 19.6 Continue to trend 12/14: Sodium 129 today has been ranging 128-133 since hospitalization, Discontinue IV fluids as patient is finally beginning to take adequate oral intake. (3) Thrush: Code(s): B37.0 - Candidal stomatitis Status: Acute Assessment and Plan: 12/13/2023: Oral nystatin and oral lozenges ordered oral fluconazole as recommended by ENT repeat throat culture today given recent history of strep, treated with amoxicillin 12/14/2023: Continue with current treatment plan 12/14: Improving after addition of oral clotrimazole troches (4) Lymphadenopathy: Code(s): R59.1 - Generalized enlarged lymph nodes Status: Acute Assessment and Plan: 12/13/2023: lymph node biopsy for possible lymphoma done yesterday 12/14/2023: Pathology pending (5) Colon ulcer: Code(s): K63.3 - Ulcer of intestine Status: Acute Assessment and Plan: 12/13/2023: Multiple colonic ulcers noted on colonoscopy hold all immunosuppressants at this time per recommendation Gastroenterology 12/14/2023: Continue Carafate and Protonix GI following (6) Rectal bleed: Code(s): K62.5 - Hemorrhage of anus and rectum Status: Acute Assessment and Plan: 12/13/2023: -c/o dark stools ongoing for past 2 days, ED exam that was performed with the presence of patient nurse as financial specialist which revealed good rectal tone, no evidence of external hemorrhoids, rectal vault empty of stool making it difficult to assess stool color, patient did have a bright red blood on digital rectal exam. EGD with gastritis, colonoscopy with findings of colonic ulcers and internal hemorrhoids but no active bleeding from any of these findings 12/14/2023: Rectal bleeding has resolved Continue Carafate and Protonix (7) Thrombocytopenia: Code(s): D69.6 - Thrombocytopenia, unspecified Status: Acute Assessment and Plan: 12/13/2023 Platelet count 38 today. Confirmed no further transfusion with Oncology [employer] MANAGED SERVICE SALES EXEC Melani Kirkland on 12/11 continue to monitor 12/14/2023: Platelet count 31 Continue to trend Oncology following 12/14: Platelet count down to 22, transfused platelets again today. Will discuss with Heme/Onc again tomorrow (8) Immunocompromised: Code(s): D84.9 - Immunodeficiency, unspecified Status: Chronic Assessment and Plan: 12/13/2023 Patient with history of rheumatoid arthritis on biologics GI recommends holding all immunosuppressants at this time. 12/14/2023: No change to current treatment plan (9) Rheumatoid arthritis: Code(s): M06.9 - Rheumatoid arthritis, unspecified Status: Acute Assessment and Plan: see above (10) HLD (hyperlipidemia): Code(s): E78.5 - Hyperlipidemia, unspecified Status: Chronic Assessment and Plan: 12/13/2023 -continue home medication - si
[2023-12-15] MEDS: SODIUM CHLORIDE 0.9% IV 250 ML 30 ML IV CONT (13:01)
[2023-12-15] MEDS: TUBING, BLOOD PLUM PUMP TUBING 1 EACH XX (13:03)
--- NOTE | 2023-12-15 14:11 | PCOTNOTE ---
Per RN, pt is independent in room. Will call MD to d/c orders.
[2023-12-15] MEDS: ACETAMINOPHEN ELIXIR 325 MG/10.15 ML UDC 650 MG PO (15:14)
--- NOTE | 2023-12-15 16:18 | PCPTNOTE ---
Spoke with Hospitalist on shift that patient is independent with mobility and ambulation in room. Requested PT/OT orders be removed as skilled services not required at this time.
[2023-12-15] MEDS: SIMVASTATIN 20 MG TABLET 40 MG PO (16:52)
[2023-12-15 19:47] LABS: Osmolality, Urine 642 mOsm/kg (50-1200)
[2023-12-15] MEDS: METOPROLOL TARTRATE 25 MG TABLET PO (20:13)
[2023-12-15] MEDS: PANTOPRAZOLE 40 MG TABLET PO (20:22)
[2023-12-16] MEDS: MAGNES & ALUM HYD/SIMETH/DIPHENHYD/LIDOCAINE 119 ML MOUTHWASH BY MOUTH ×6 (01:32→20:45)
[2023-12-16 05:05] VITALS: BP 115/72; PULSE 86; RESP 16; TEMP 38.1; O2SAT 92
[2023-12-16 05:34] LABS: Basophils Percent Auto 0.7 % (0.2-1.2); Eosinophils Percent Auto 0.2 % (0-4.4); Hematocrit 28.9 % (42.0-52.0); Hemoglobin 9.4 g/dL (14.0-18.0); Immature Granulocyte Absolute 0.03 K/mm3 (0.00-0.031); Immature Granulocyte Percent A 0.5 % (0-0.5); Immature Platelet Fraction Pct 20.9 % (0.9-11.2); Lymphocytes Absolute Auto 2.01 K/mm3 (0.9-3.2); Lymphocytes Percent Auto 33.4 % (18.3-44.2); Mean Corpuscular HGB Conc 32.5 g/dl (32-36); Mean Corpuscular Hemoglobin 31.5 pg (26-34); Mean Platelet Volume 14.7 fl (7.4-10.4); Monocytes Absolute Auto 0.9 K/mm3 (0.1-0.6); Monocytes Percent Auto 14.1 % (2.6-8.5); Neutrophils Absolute Auto 3.1 K/mm3 (1.3-6.7); Neutrophils Percent Auto 51.1 % (45.5-73.1); Platelet Count Result 51 k/mm3 (150-375); Red Blood Count 2.98 M/mm3 (4.6-6.20); Red Cell Distribution Width 15.5 % (11.5-14.5)
[2023-12-16] MEDS: SUCRALFATE SUSP 100 MG/ML 10 ML UDC 1000 MG PO ×4 (05:47→20:43)
[2023-12-16 05:49] LABS: Alanine Aminotransferase 81 U/L (6-50); Albumin Level 2.7 g/dL (3.5-5.1); Alkaline Phosphatase 179 U/L (38-126); Anion Gap 3 mmol/L (4-12); Aspartate Amino Transferase 131 U/L (17-59); Bilirubin,Total 0.6 mg/dL (0.2-1.3); Blood Urea Nitrogen 12 mg/dL (9-20); Calcium 8.8 mg/dL (8.4-10.2); Carbon Dioxide 27 mmol/L (22-30); Chloride 98 mmol/L (98-107); Estimated CRCL calculation 56 ml/min; Estimated Glomerular Filt Rate 60; Glucose 117 mg/dL (65-110); Magnesium 1.9 mg/dL (1.6-2.3); Potassium 3.2 mmol/L (3.4-5.0); Sodium 128 mmol/L (137-145)
[2023-12-16 06:09] LABS: Monoscreen Negative (Negative); Negative Monotest Control Negative (Negative); Positive Monotest Control Positive (Positive)
[2023-12-16 08:11] VITALS: PULSE 86
[2023-12-16] MEDS: CLOTRIMAZOLE 10 MG TROC PO ×5 (08:11→20:45)
[2023-12-16] MEDS: METOPROLOL TARTRATE 25 MG TABLET PO ×2 (08:11→20:42)
[2023-12-16] MEDS: NYSTATIN 100,000 UNITS/ML SUSP 5 ML ORAL.SUSP PO ×4 (08:12→20:43)
[2023-12-16] MEDS: FLUCONAZOLE 100 MG TABLET PO (08:12)
[2023-12-16] MEDS: PANTOPRAZOLE 40 MG TABLET PO ×2 (08:14→20:42)
--- NOTE | 2023-12-16 08:46 | PCOTNOTE ---
Attempted to see pt. for occupational therapy evaluation. Pt. independent in room. Pt. reports no need for therapy services at this time, confirmed with nursing. Weekend therapy services spoke with hospitalist, who agreed to cancelation of orders. Cancelling orders.
--- NOTE | 2023-12-16 09:32 | PCNFU ---
Nutrition Follow-Up Complete: Inadequate energy intake related to NPO status as evidenced by current diet orders Diet order - Resolved. Intakes improved to 25-100 on regular diet. Goal: Pt current nutrition is Regular diet. Ensure Compact TID (2 per tray) for additional 220 kcal and 9 g protein each. Nutrition recommendation: No new nutrition recommendations. Continue current nutrition care plan and orders Last recorded weight is 77 kg. Bowel Motility: Last BM +1 12/15/23 Labs Reviewed:Hgb 9.4, Hct 28.9, Alb 2.7, Na 128, K+ 3.2 Meds Noted: Protonix, zofran Skin: No pressure injuries Additional Notes: Intakes improved last 24 hours to 25-100%. Pt had aphthous ulcers, improved. Monitor diet orders, intake, wt, labs. Follow up in 5 days.
--- NOTE | 2023-12-16 10:15 | WPDONCPN ---
Progress Note: A/P (1) Lymphadenopathy Code(s): R59.1 - Generalized enlarged lymph nodes Status: Acute (2) Thrombocytopenia Code(s): D69.6 - Thrombocytopenia, unspecified Status: Acute - Additional Plan Sebastián Astudillo is a 68 year old male with a past medical history of CAD, GERD, RA, HLD, who admits for bloody stools. He reports blood in his stool after going to the bathroom around midnight on Saturday night. He endorses dark red and black stools. He is supposed to get EGD and colonoscopy today. He uses aspirin but is not on another AC. He is has RA and is on MTX weekly. He follows with Dr Boothe at [facility]. He reports its been very hard to swallow and has had two strep throat infections recently. He now has thrush and has been started on nystatin. He is unable to eat or drink due to mouth pain. He feel as if the morphine is not helping. In general, he reports fatigue, rectal bleeding, intermittent fevers and nights sweats and anorexia due to throat pain. He has a past history of skin cancer and familial history of colon cancer. 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 He has a 1 pack/day smoking history for 43+ years. There is a concerning abd/pelvis CT scan for mesenteric and retroperitoneal lymphadenopathy possibly consistent with lymphoma, splenomegaly, hiatal hernia, nephrolithiasis. 12/09 Thrombocytopenia- I have discussed the differential diagnoses of thrombocytopenia with the patient and that includes nutritional deficiencies like vitamin B12 and iron deficiency. Other possibilities include drug induced, autoimmune, and bone marrow disorders like MDS and possible lymphoma with bone marrow involvement. Other possibilities are splenic/liver sequestration. I will order work up to include vitamin B12, iron studies, MMA, STR and plt antibody. CT scan shows splenomegaly which is likely the cause. He also has been dealing with active viral/bacterial infections which can also contribute. Please transfuse plt if actively bleeding or <20. Possible Lymphoma- Abd/Pelvis CT scan showing mesenteric and retroperitoneal lymphadenopathy possibly consistent with lymphoma. I have discussed the possibility of metastatic disease. I will order CT scan of chest to evaluate for extensive lymphadenopathy. and possible biopsy site. Pt is agreeable to biopsy at this time. I will order biopsy once chest CT is complete. LDH ordered. Once stable, he can follow up in the office with biopsy results and plan of care. Thrush- This is likely due to MTX treatment causing immunosuppression. EGD will be done today to evaluate further. Continue nystatin swish and swallow 3-4x daily. I will order magic mouthwash as needed. I will also order fluconazole PO 200mg once then 100mg PO daily for 14 days. May need IV micafungin depending on extensiveness seen on EGD. Pain control with Dilaudid 0.5mg q3 hours PRN. 12/15 Thrombocytopenia- Plt today 51. He is s/p multiple units of platelets at this time. CT scan shows splenomegaly which is concerning for lymphoma involvement which can be causing his thrombocytopenia. We will hold on BMBX at this time. Please transfuse plt if actively bleeding or <20. 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 Differentials include lymphoma vs sarcoidosis. Patient is continually having daily fevers, and night sweats with fatigue and weight loss. Abd/pelvis CT scan for mesenteric and retroperitoneal lymphadenopathy possibly consistent with lymphoma, splenomegaly, hiatal hernia, nephrolithiasis. I will consult surgery for possible excisional biopsy of LN. I will also order SHANTANU for sarcoidosis work up. Past calcium levels have been normal. He can be discharged from oncology standpoint after excisional biopsy as long as patient is agreeable and we can follow up in the office. Thrush- Improving on nystatin, magic mouthwash, fluconazole daily, and troches. T
[2023-12-16 10:26] LABS: CRP 1.5 mg/dL (<1.0)
[2023-12-16 10:40] LABS: Erythrocyte Sedimentation Rate 57 mm/hr (0-20)
--- NOTE | 2023-12-16 10:52 | P.PNIM_ITS ---
Progress Note: A&P Assessment and Plan (1) Thrombocytopenia: Code(s): D69.6 - Thrombocytopenia, unspecified Status: Acute Assessment and Plan: 12/13/2023 * Platelet count 38 today. * Confirmed no further transfusion with Oncology [employer] Melani Kirkland on 12/11 * continue to monitor 12/14/2023: * Platelet count 31 * Continue to trend * Oncology following 12/14: Platelet count down to 22, transfused platelets again today. Will discuss with Heme/Onc again tomorrow 12/15: s/p transfusion yesterday level is 51. Surgical excision lymph node planned tomorrow so will need to transfuse about 50 for procedure. Will draw CBC after midnight and transfuse if below 50. (2) Lymphadenopathy: Code(s): R59.1 - Generalized enlarged lymph nodes Status: Acute Assessment and Plan: 12/13/2023: * lymph node biopsy for possible lymphoma done yesterday 12/14/2023: Pathology pending 12/15: Pathology shows Granulomatous lymphadenitis. Plan is for surgical excision biopsy right axilla left lymph node tomorrow (3) Esophageal ulcer: Code(s): K22.10 - Ulcer of esophagus without bleeding Status: Acute Assessment and Plan: 12/13/2023 * Aphthous ulcer noted on EGD, gastritis also noted. * Carafate and pantoprazole. * GI following 12/14/2023: * Continue with current treatment plan 12/14: Change pantoprazole to oral, additional Ensure with each meal (4) Hyponatremia: Code(s): E87.1 - Hypo-osmolality and hyponatremia Status: Acute Assessment and Plan: 12/13/23: * Sodium dropped to 130 today. * red cortisol pending * osmolality * urine osmolality, urine sodium urine urea and urine creatinine indicative of pre-renal (likely hypovolemia) in FEMA score * Ordered protein electrophoresis. * NaCL @ 75 ml as he is having poor intake * Consider Nephrology consult if sodium continues to drop. 12/14/2023: * Sodium 133 * Can be due to hypovolemia or SIADH in the appropriate setting * Serum and urine osmolarity pending * Continue IV fluids for now * Random cortisol level 19.6 * Continue to trend 12/14: Sodium 129 today has been ranging 128-133 since hospitalization, Discontinue IV fluids as patient is finally beginning to take adequate oral intake. 12/15: sodium 128 today, stable for recent levels. However, to prevent delay in surgery tomorrow will plan a small 3% saline bolus and recheck today. (5) Thrush: Code(s): B37.0 - Candidal stomatitis Status: Acute Assessment and Plan: 12/13/2023: * Oral nystatin and oral lozenges ordered * oral fluconazole as recommended by ENT * repeat throat culture today given recent history of strep, treated with amoxicillin 12/14/2023: Continue with current treatment plan 12/14: Improving after addition of oral clotrimazole troches (6) Colon ulcer: Code(s): K63.3 - Ulcer of intestine Status: Acute Assessment and Plan: 12/13/2023: * Multiple colonic ulcers noted on colonoscopy hold all immunosuppressants at this time per recommendation Gastroenterology 12/14/2023: * Continue Carafate and Protonix * GI following (7) Rectal bleed: Code(s): K62.5 - Hemorrhage of anus and rectum Status: Acute Assessment and Plan: 12/13/2023: -c/o dark stools ongoing for past 2 days, ED exam that was performed with 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
--- NOTE | 2023-12-16 10:52 | PM.IMPN ---
Progress Note: A&P Assessment and Plan (1) Thrombocytopenia: Code(s): D69.6 - Thrombocytopenia, unspecified Status: Acute Assessment and Plan: 12/13/2023 Platelet count 38 today. Confirmed no further transfusion with Oncology [employer] Melani Kirkland on 12/11 continue to monitor 12/14/2023: Platelet count 31 Continue to trend Oncology following 12/14: Platelet count down to 22, transfused platelets again today. Will discuss with Heme/Onc again tomorrow 12/15: s/p transfusion yesterday level is 51. Surgical excision lymph node planned tomorrow so will need to transfuse about 50 for procedure. Will draw CBC after midnight and transfuse if below 50. (2) Lymphadenopathy: Code(s): R59.1 - Generalized enlarged lymph nodes Status: Acute Assessment and Plan: 12/13/2023: lymph node biopsy for possible lymphoma done yesterday 12/14/2023: Pathology pending 12/15: Pathology shows Granulomatous lymphadenitis. Plan is for surgical excision biopsy right axilla left lymph node tomorrow (3) Esophageal ulcer: Code(s): K22.10 - Ulcer of esophagus without bleeding Status: Acute Assessment and Plan: 12/13/2023 Aphthous ulcer noted on EGD, gastritis also noted. Carafate and pantoprazole. GI following 12/14/2023: Continue with current treatment plan 12/14: Change pantoprazole to oral, additional Ensure with each meal (4) Hyponatremia: Code(s): E87.1 - Hypo-osmolality and hyponatremia Status: Acute Assessment and Plan: 12/13/23: Sodium dropped to 130 today. red cortisol pending osmolality urine osmolality, urine sodium urine urea and urine creatinine indicative of pre-renal (likely hypovolemia) in FEMA score Ordered protein electrophoresis. NaCL @ 75 ml as he is having poor intake Consider Nephrology consult if sodium continues to drop. 12/14/2023: Sodium 133 Can be due to hypovolemia or SIADH in the appropriate setting Serum and urine osmolarity pending Continue IV fluids for now Random cortisol level 19.6 Continue to trend 12/14: Sodium 129 today has been ranging 128-133 since hospitalization, Discontinue IV fluids as patient is finally beginning to take adequate oral intake. 12/15: sodium 128 today, stable for recent levels. However, to prevent delay in surgery tomorrow will plan a small 3% saline bolus and recheck today. (5) Thrush: Code(s): B37.0 - Candidal stomatitis Status: Acute Assessment and Plan: 12/13/2023: Oral nystatin and oral lozenges ordered oral fluconazole as recommended by ENT repeat throat culture today given recent history of strep, treated with amoxicillin 12/14/2023: Continue with current treatment plan 12/14: Improving after addition of oral clotrimazole troches (6) Colon ulcer: Code(s): K63.3 - Ulcer of intestine Status: Acute Assessment and Plan: 12/13/2023: Multiple colonic ulcers noted on colonoscopy hold all immunosuppressants at this time per recommendation Gastroenterology 12/14/2023: Continue Carafate and Protonix GI following (7) Rectal bleed: Code(s): K62.5 - Hemorrhage of anus and rectum Status: Acute Assessment and Plan: 12/13/2023: -c/o dark stools ongoing for past 2 days, ED exam that was performed with the 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 EGD with gastritis, colonoscopy with findings of colonic ulcers and internal hemorrhoids but no active bleeding from any of these findings 12/14/2023: Rectal bleeding has resolved Continue Carafate and Protonix (8) Immunocompromised: Code(s): D84.9 - Immunodeficiency, unspecified Status: Chronic Assessment and Plan: 12/13/2023 Patient with history
[2023-12-16] MEDS: AZITHROMYCIN 250 MG TABLET 500 MG PO (11:06)
[2023-12-16 12:32] LABS: Soluble Transferrin Receptor 1.13 mg/L (0.76-1.76)
[2023-12-16 13:43] VITALS: BP 115/73; PULSE 81; RESP 18; TEMP 37.7; O2SAT 96
--- NOTE | 2023-12-16 14:28 | PM.CNGS ---
Assessment and Plan Assessment and plan (1) Lymphadenopathy: Code(s): R59.1 - Generalized enlarged lymph nodes Status: Acute Assessment and Plan: Imaging shows mild bilateral axillary lymphadenopathy, mesenteric and retroperitoneal lymphadenopathy. Concerns for lymphoma, oncology following. Status post ultrasound-guided core needle biopsy of a right axillary lymph node with pathology showing granulomatous lymphadenitis. Oncology requesting excisional lymph node biopsy. His axillary lymphadenopathy seems more prominent on the right on exam. Discussed the case with Oncology who prefers doing the excisional lymph node biopsy while he is admitted. Discussed this with the patient and the option of scheduling him for a right axillary excisional lymph node biopsy by Dr. Mora tomorrow. Description of the procedure, risks, benefits, and alternatives were discussed with the patient. He wishes to proceed. We will make him NPO after midnight and plan to add him onto the surgery schedule hopefully tomorrow. (2) Thrombocytopenia: Code(s): D69.6 - Thrombocytopenia, unspecified Status: Acute Assessment and Plan: Discussed with Hospitalist that we would ideally want his platelets above 50,000 to proceed with the excisional lymph node biopsy. I have spoke with blood bank who will have platelets available tomorrow if he requires a transfusion and will order a type that needs updated if he were to need platelets tomorrow. (3) Hyponatremia: Code(s): E87.1 - Hypo-osmolality and hyponatremia Status: Acute (4) Colon ulcer: Code(s): K63.3 - Ulcer of intestine Status: Acute Assessment and Plan: Noted on colonoscopy. GI following, on PPI and carafate. (5) Esophageal ulcer: Code(s): K22.10 - Ulcer of esophagus without bleeding Status: Acute Assessment and Plan: Noted on EGD. GI following, on PPI and carafate. (6) CAD (coronary artery disease): Code(s): I25.10 - Atherosclerotic heart disease of [place] coronary artery without angina pectoris Status: Chronic Assessment and Plan: Remote history of coronary artery stent placement (7) Rheumatoid arthritis: Code(s): M06.9 - Rheumatoid arthritis, unspecified Status: Acute (8) Immunocompromised: Code(s): D84.9 - Immunodeficiency, unspecified Status: Chronic Assessment and Plan: On immunosuppressants for his RA. (9) Rectal bleed: Code(s): K62.5 - Hemorrhage of anus and rectum Status: Acute Assessment and Plan: Reason for his admission. S/p EGD and colonoscopy with findings of gastritis, esophageal ulcer, and colonic ulcers. On PPI and carafate. GI bleed resolved, hgb stable. Path still pending. Plan I have discussed the patient's case and plan of care with Dr. Mora. Thank you for allowing us to see the patient in consultation and we will continue to follow along with you. History of Present Illness Consult details Consult date: 12/16/23 Reason for consult: other (Requesting excisional lymph node biopsy) Requesting physician: Shannon Kirkland APRN Narrative: This is a 68-year-old man with multiple medical problems, who we have been asked to see in surgical consultation by Oncology for an excisional lymph node biopsy. He presented to the ER a week ago for bloody stools. He has also dealt with a sore throat and fevers for almost 3 weeks. He was admitted for possible GI bleed and thrombocytopenia. GI proceeded with a colonoscopy that showed a colonic ulcer, diverticulosis, and internal hemorrhoids without active bleeding, and EGD that showed an esophageal ulcer, hiatal hernia, and gastritis. His platelets have been as low as 20,000 and he has received a total of 4 units of platelets. Platelets this morning are 51,000. Hemoglobin stable at 9.4 today. He has had a CT of the chest, abdomen, pelvis, and soft tissue neck showed moderate paraseptal predominant emphy
[2023-12-16] MEDS: POTASSIUM CHLORIDE 20 MEQ PACKET (FOR LIQUID) 40 MEQ PO (15:08)
[2023-12-16] MEDS: SIMVASTATIN 20 MG TABLET 40 MG PO (16:43)
[2023-12-16 20:36] VITALS: BP 114/71; PULSE 84; RESP 17; TEMP 38.4; O2SAT 94
[2023-12-16] MEDS: ACETAMINOPHEN ELIXIR 325 MG/10.15 ML UDC 650 MG PO (20:48)
[2023-12-17] MEDS: MAGNES & ALUM HYD/SIMETH/DIPHENHYD/LIDOCAINE 119 ML MOUTHWASH BY MOUTH ×6 (01:23→20:37)
[2023-12-17 05:28] VITALS: BP 110/75; PULSE 67; RESP 18; TEMP 36.9; O2SAT 95
[2023-12-17] MEDS: ACETAMINOPHEN ELIXIR 325 MG/10.15 ML UDC 650 MG PO (05:45)
[2023-12-17] MEDS: SUCRALFATE SUSP 100 MG/ML 10 ML UDC 1000 MG PO ×4 (05:45→20:35)
[2023-12-17 06:48] LABS: Alanine Aminotransferase 91 U/L (6-50); Albumin Level 3.1 g/dL (3.5-5.1); Alkaline Phosphatase 174 U/L (38-126); Anion Gap 1 mmol/L (4-12); Aspartate Amino Transferase 124 U/L (17-59); Bilirubin,Total 0.8 mg/dL (0.2-1.3); Blood Urea Nitrogen 14 mg/dL (9-20); Calcium 9.4 mg/dL (8.4-10.2); Carbon Dioxide 32 mmol/L (22-30); Chloride 100 mmol/L (98-107); Estimated CRCL calculation 56 ml/min; Estimated Glomerular Filt Rate 60; Glucose 102 mg/dL (65-110); Magnesium 2.2 mg/dL (1.6-2.3); Potassium 3.6 mmol/L (3.4-5.0); Sodium 133 mmol/L (137-145)
[2023-12-17 07:00] LABS: Basophils Percent Auto 0.5 % (0.2-1.2); Eosinophils Percent Auto 0.5 % (0-4.4); Hematocrit 36.3 % (42.0-52.0); Hemoglobin 11.4 g/dL (14.0-18.0); Immature Granulocyte Absolute 0.03 K/mm3 (0.00-0.031); Immature Granulocyte Percent A 0.5 % (0-0.5); Immature Platelet Fraction Pct 21.8 % (0.9-11.2); Lymphocytes Absolute Auto 1.25 K/mm3 (0.9-3.2); Lymphocytes Percent Auto 21.9 % (18.3-44.2); Mean Corpuscular HGB Conc 31.4 g/dl (32-36); Mean Corpuscular Hemoglobin 30.9 pg (26-34); Mean Corpuscular Volume 98.4 fl (80-100); Monocytes Absolute Auto 0.8 K/mm3 (0.1-0.6); Monocytes Percent Auto 14.7 % (2.6-8.5); Neutrophils Absolute Auto 3.5 K/mm3 (1.3-6.7); Neutrophils Percent Auto 61.9 % (45.5-73.1); Platelet Count Result 60 k/mm3 (150-375); Red Blood Count 3.69 M/mm3 (4.6-6.20); Red Cell Distribution Width 15.6 % (11.5-14.5); White Blood Count 5.7 K/mm3 (4.5-10.0)
[2023-12-17] MEDS: AZITHROMYCIN 250 MG TABLET 500 MG PO (09:00)
[2023-12-17 09:01] VITALS: PULSE 67
[2023-12-17] MEDS: PANTOPRAZOLE 40 MG TABLET PO ×2 (09:01→20:35)
[2023-12-17] MEDS: FLUCONAZOLE 100 MG TABLET PO (09:01)
[2023-12-17] MEDS: METOPROLOL TARTRATE 25 MG TABLET PO ×2 (09:01→20:35)
[2023-12-17] MEDS: CLOTRIMAZOLE 10 MG TROC PO ×5 (09:01→20:35)
[2023-12-17] MEDS: NYSTATIN 100,000 UNITS/ML SUSP 5 ML ORAL.SUSP PO ×4 (09:01→20:35)
--- NOTE | 2023-12-17 09:48 | P.PNIM_ITS ---
Progress Note: A&P Assessment and Plan (1) Thrombocytopenia: Code(s): D69.6 - Thrombocytopenia, unspecified Status: Acute Assessment and Plan: 12/13/2023 * Platelet count 38 today. 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 Will discuss with Heme/Onc again tomorrow 12/15: s/p transfusion yesterday level is 51. Surgical excision lymph node planned tomorrow so will need to transfuse about 50 for procedure. Will draw CBC after midnight and transfuse if below 50. 12/16: Platelets 60 today, will recheck tomorrow and transfuse above 50 if necessary. (2) Lymphadenopathy: Code(s): R59.1 - Generalized enlarged lymph nodes Status: Acute Assessment and Plan: 12/13/2023: * lymph node biopsy for possible lymphoma done yesterday 12/14/2023: Pathology pending 12/15: Pathology shows Granulomatous lymphadenitis. Plan is for surgical excision biopsy right axilla left lymph node tomorrow 12/16: Unable to get patient on the surgery schedule today, will undergo biopsy excisional right axilla lymph node tomorrow. (3) Esophageal ulcer: Code(s): K22.10 - Ulcer of esophagus without bleeding Status: Acute Assessment and Plan: 12/13/2023 * Aphthous ulcer noted on EGD, gastritis also noted. * Carafate and pantoprazole. * GI following 12/14/2023: * Continue with current treatment plan 12/14: Change pantoprazole to oral, additional Ensure with each meal 12/16: Esophageal ulcer biopsy positive P16 (4) Hyponatremia: Code(s): E87.1 - Hypo-osmolality and hyponatremia Status: Acute Assessment and Plan: 12/13/23: * Sodium dropped to 130 today. * red cortisol pending * osmolality * urine osmolality, urine sodium urine urea and urine creatinine indicative of pre-renal (likely hypovolemia) in FEMA score * Ordered protein electrophoresis. * NaCL @ 75 ml as he is having poor intake * Consider Nephrology consult if sodium continues to drop. 12/14/2023: * Sodium 133 * Can be due to hypovolemia or SIADH in the appropriate setting * Serum and urine osmolarity pending * Continue IV fluids for now * Random cortisol level 19.6 * Continue to trend 12/14: Sodium 129 today has been ranging 128-133 since hospitalization, Discontinue IV fluids as patient is finally beginning to take adequate oral intake. 12/15: sodium 128 today, stable for recent levels. However, to prevent delay in surgery tomorrow will plan a small 3% saline bolus and recheck today.--3% was canceled when it was found that patient was not going to the operating room on 12/16 12/16: Without intervention sodium went to 133 today. Patient is eating and drinking better. Pain is decreased but still burning sensation in his mouth. (5) Thrush: Code(s): B37.0 - Candidal stomatitis Status: Acute Assessment and Plan: 12/13/2023: * Oral nystatin and oral lozenges ordered * oral fluconazole as recommended by ENT * repeat throat culture today given recent history of strep, treated with amoxicillin 12/14/2023: Continue with current treatment plan 12/14: Improving after addition of oral clotrimazole troches 12/16: Patient is eating and drinking better. Pain is decreased but still burning sensation in his mouth.--will need continued nystatin, fluconazole, clotrimazole and Magic mouthwash on
--- NOTE | 2023-12-17 09:48 | PM.IMPN ---
Progress Note: A&P Assessment and Plan (1) Thrombocytopenia: Code(s): D69.6 - Thrombocytopenia, unspecified Status: Acute Assessment and Plan: 12/13/2023 Platelet count 38 today. Confirmed no further transfusion with Oncology [employer]CRET[employer] Melani Kirkland on 12/11 continue to monitor 12/14/2023: Platelet count 31 Continue to trend Oncology following 12/14: Platelet count down to 22, transfused platelets again today. Will discuss with Heme/Onc again tomorrow 12/15: s/p transfusion yesterday level is 51. Surgical excision lymph node planned tomorrow so will need to transfuse about 50 for procedure. Will draw CBC after midnight and transfuse if below 50. 12/16: Platelets 60 today, will recheck tomorrow and transfuse above 50 if necessary. (2) Lymphadenopathy: Code(s): R59.1 - Generalized enlarged lymph nodes Status: Acute Assessment and Plan: 12/13/2023: lymph node biopsy for possible lymphoma done yesterday 12/14/2023: Pathology pending 12/15: Pathology shows Granulomatous lymphadenitis. Plan is for surgical excision biopsy right axilla left lymph node tomorrow 12/16: Unable to get patient on the surgery schedule today, will undergo biopsy excisional right axilla lymph node tomorrow. (3) Esophageal ulcer: Code(s): K22.10 - Ulcer of esophagus without bleeding Status: Acute Assessment and Plan: 12/13/2023 Aphthous ulcer noted on EGD, gastritis also noted. Carafate and pantoprazole. GI following 12/14/2023: Continue with current treatment plan 12/14: Change pantoprazole to oral, additional Ensure with each meal 12/16: Esophageal ulcer biopsy positive P16 (4) Hyponatremia: Code(s): E87.1 - Hypo-osmolality and hyponatremia Status: Acute Assessment and Plan: 12/13/23: Sodium dropped to 130 today. red cortisol pending osmolality urine osmolality, urine sodium urine urea and urine creatinine indicative of pre-renal (likely hypovolemia) in FEMA score Ordered protein electrophoresis. NaCL @ 75 ml as he is having poor intake Consider Nephrology consult if sodium continues to drop. 12/14/2023: Sodium 133 Can be due to hypovolemia or SIADH in the appropriate setting Serum and urine osmolarity pending Continue IV fluids for now Random cortisol level 19.6 Continue to trend 12/14: Sodium 129 today has been ranging 128-133 since hospitalization, Discontinue IV fluids as patient is finally beginning to take adequate oral intake. 12/15: sodium 128 today, stable for recent levels. However, to prevent delay in surgery tomorrow will plan a small 3% saline bolus and recheck today.--3% was canceled when it was found that patient was not going to the operating room on 12/16 12/16: Without intervention sodium went to 133 today. Patient is eating and drinking better. Pain is decreased but still burning sensation in his mouth. (5) Thrush: Code(s): B37.0 - Candidal stomatitis Status: Acute Assessment and Plan: 12/13/2023: Oral nystatin and oral lozenges ordered oral fluconazole as recommended by ENT repeat throat culture today given recent history of strep, treated with amoxicillin 12/14/2023: Continue with current treatment plan 12/14: Improving after addition of oral clotrimazole troches 12/16: Patient is eating and drinking better. Pain is decreased but still burning sensation in his mouth.--will need continued nystatin, fluconazole, clotrimazole and Magic mouthwash on discharge (6) Colon ulcer: Code(s): K63.3 - Ulcer of intestine Status: Acute Assessment and Plan: 12/13/2023: Multiple colonic ulcers noted on colonoscopy hold all immunosuppressants at this time per recommendation Gastroenterology 12/14/2023: Continue Carafate and Protonix GI following 12/16: Colonic ulcer pathology shows Ebstein Myers virus positive. (7) Rectal bleed: Code(s): K62.5 - Hemorrhage of anus and re
--- NOTE | 2023-12-17 14:07 | WPDGIPROGNO ---
Progress Note: A&P Assessment and Plan (1) Colon ulcer: Code(s): K63.3 - Ulcer of intestine Status: Acute Assessment and Plan: noted multiple ulcers in colon, biopsies consistent with EBV- this would also explain lymphadenopathy and even lymphoma (oncology on board) gib resolved serology for CMV, hiv negative also may benefit to see ID as outpatient and discontinue biologic at least for now (2) Esophageal ulcer: Code(s): K22.10 - Ulcer of esophagus without bleeding Status: Acute Assessment and Plan: ppi and carafate treated also with nystatin (he has thrush) (3) EBV infection: Code(s): B27.90 - Infectious mononucleosis, unspecified without complication Status: Acute Assessment and Plan: + ulcers in colon (4) Odynophagia: Code(s): R13.10 - Dysphagia, unspecified Status: Acute Assessment and Plan: improved (5) Thrombocytopenia: Code(s): D69.6 - Thrombocytopenia, unspecified Status: Acute Assessment and Plan: hematology on board noted + EBV oncology on board (6) Rectal bleed: Code(s): K62.5 - Hemorrhage of anus and rectum Status: Acute Assessment and Plan: from colonoscopy findings (had several ulcers) no more episodes for several days (7) Thrush: Code(s): B37.0 - Candidal stomatitis Status: Acute Assessment and Plan: hiv negative (8) Lymphadenopathy: Code(s): R59.1 - Generalized enlarged lymph nodes Status: Acute Assessment and Plan: will get more biopsy + EBV in ulcer ? lymphoma (9) Rheumatoid arthritis: Code(s): M06.9 - Rheumatoid arthritis, unspecified Status: Acute (10) Immunocompromised: Code(s): D84.9 - Immunodeficiency, unspecified Status: Chronic Assessment and Plan: biologic and mtx on hold Subjective Date/time seen: 12/17/23 14:07 Interval history: no changes Review of Systems Review of Systems: All systems reviewed & are unremarkable except as noted in HPI and below Exam Const: General: comfortable and no acute distress HENMT: Face/Nose/Sinus: Normal nares present Eyes: General: appearance normal, both eyes and all related structures Neck: Neck: supple Resp: Auscultation: clear to auscultation bilaterally Cardio: Rate: regular rate Rhythm: regular rhythm GI: Inspection: non-distended GI Palp: Yes Soft to palpation and No Tenderness to palpation present (GI) Skin: General skin exam: normal color Neuro: Speech: normal speech Motor exam (neuro): 5/5 motor strength present throughout Extrem: General: normal to inspection Psych: Mental Status: mental status grossly normal Objective Data Vital Signs Vital Signs: Vital Signs - 24 hr 12/16/23 20:36 12/16/23 20:00 12/17/23 05:28 Temperature 101.2 F H 98.5 F Pulse Rate 84 67 Respiratory Rate 17 18 Blood Pressure 114/71 110/75 Pulse Oximetry 94 95 Oxygen Delivery Room Air 12/17/23 08:00 12/17/23 09:01 Temperature Pulse Rate 67 Respiratory Rate Blood Pressure Pulse Oximetry Oxygen Delivery Room Air Intake/Output Intake/Output: Intake & Output 12/14/23 12/15/23 12/16/23 12/17/23 23:59 23:59 23:59 23:59 Intake Total 3508.7 2290 1020 480 Output Total 0 0 Balance 3508.7 2290 1020 480 Meds/Results Medications: Active Medications Generic Name Dose Route Start Last Admin Trade Name Freq PRN Reason Stop Dose Admin Acetaminophen 650 mg 12/11/23 19:50 12/17/23 05:45 Acetaminophen Elixir 325 Mg/10.15 Ml Udc PO 650 mg Q4H PRN Administration pain or Fever Hydrocodone Bitart/Acetaminophen 1 tab 12/12/23 11:20 Hydrocodone/Acetaminophen (*Crx) 7.5-325 Mg Tablet PO Q6H PRN Pain Rated 8-10 Azithromycin 500 mg 12/16/23 10:30 12/17/23 09:00 Azithromycin 250 Mg Tablet PO 12/20/23 09:01 500 mg DAILY DEREK Administration Clotrimazole 10 mg 12/13/23 21:0
[2023-12-17 14:08] VITALS: BP 121/73; PULSE 82; RESP 18; TEMP 37.2; O2SAT 93
--- NOTE | 2023-12-17 14:50 | PM.PNGS ---
Progress Note: A&P Assessment and Plan (1) Lymphadenopathy: Code(s): R59.1 - Generalized enlarged lymph nodes Status: Acute Assessment and Plan: Plan to proceed with excisional right axillary lymph node biopsy tomorrow. NPO after midnight. Patient agrees to proceed with surgery and all questions were answered. (2) Thrombocytopenia: Code(s): D69.6 - Thrombocytopenia, unspecified Status: Acute Assessment and Plan: Platelets 60 K today. Repeat labs tomorrow. Type and screen up-to-date and platelets available if needed in the morning prior to surgery if less than 50 K. Plan I have discussed the patient's case and plan of care with Dr. Mora. Subjective Subjective Date/Time Seen: 12/17/23 14:50 Patient reports: no new complaints Interval history: Patient without any specific complaints this morning. Platelets 27261. Exam Const: General: comfortable and no acute distress Chest: Other: Right axillary lymphadenopathy more prominent than left, unable to definitively identify obvious lymphadenopathy on the left. Right axilla with ecchymosis at the area of previous US guided core needle biopsy Objective Data Vital Signs Vital Signs: Vital Signs - 24 hr 12/16/23 20:36 12/16/23 20:00 12/17/23 05:28 Temperature 101.2 F H 98.5 F Pulse Rate 84 67 Respiratory Rate 17 18 Blood Pressure 114/71 110/75 Pulse Oximetry 94 95 Oxygen Delivery Room Air 12/17/23 08:00 12/17/23 09:01 12/17/23 14:08 Temperature 99.0 F Pulse Rate 67 82 Respiratory Rate 18 Blood Pressure 121/73 Pulse Oximetry 93 Oxygen Delivery Room Air Intake/Output Intake/Output: Intake & Output 12/14/23 12/15/23 12/16/23 12/17/23 23:59 23:59 23:59 23:59 Intake Total 3508.7 2290 1020 480 Output Total 0 0 Balance 3508.7 2290 1020 480 Meds/Results Medications: Active Medications Generic Name Dose Route Start Last Admin Trade Name Freq PRN Reason Stop Dose Admin Acetaminophen 650 mg 12/11/23 19:50 12/17/23 05:45 Acetaminophen Elixir 325 Mg/10.15 Ml Udc PO 650 mg Q4H PRN Administration pain or Fever Hydrocodone Bitart/Acetaminophen 1 tab 12/12/23 11:20 Hydrocodone/Acetaminophen (*Crx) 7.5-325 Mg Tablet PO Q6H PRN Pain Rated 8-10 Azithromycin 500 mg 12/16/23 10:30 12/17/23 09:00 Azithromycin 250 Mg Tablet PO 12/20/23 09:01 500 mg DAILY DEREK Administration Clotrimazole 10 mg 12/13/23 21:00 12/17/23 11:07 Clotrimazole 10 Mg Troc PO 10 mg 5 TIMES DAILY DEREK Administration Fluconazole 100 mg 12/11/23 09:00 12/17/23 09:01 Fluconazole 100 Mg Tablet PO 12/24/23 09:01 100 mg QAM DEREK Administration Lidocaine/Diphenhydr/Alum/Mg/Simeth 5 ml 12/10/23 13:00 12/17/23 12:00 Magnes & Alum Hyd/Simeth/Diphenhyd/Lidocaine 119 Ml Mouthwash BY MOUTH 01/09/24 12:59 5 ml Q4HR DEREK Administration Metoprolol Tartrate 25 mg 12/09/23 11:05 12/17/23 09:01 Metoprolol Tartrate 25 Mg Tablet PO 25 mg Q12HR DEREK Administration Nystatin 5 ml 12/09/23 13:00 12/17/23 12:00 Nystatin 100,000 Units/Ml Susp 5 Ml Oral.Susp PO 5 ml QID DEREK Administration Ondansetron HCl 4 mg 12/09/23 20:28 12/09/23 20:51 Ondansetron Inj 4 Mg/2 Ml Vial IV PUSH 4 mg Q6H PRN Administration Nausea And Vomiting Pantoprazole Sodium 40 mg 12/15/23 21:00 12/17/23 09:01 Pantoprazole 40 Mg Tablet PO 40 mg Q12HR DEREK Administration Simvastatin 40 mg 12/09/23 17:00 12/16/23 16:43 Simvastatin 20 Mg Tablet PO 40 mg 1700 DEREK Administration Sucralfate 1,000 mg 12/10/23 16:30 12/17/23 11:07 Sucralfate Susp 100 Mg/Ml 10 Ml Udc PO 1,000 mg ACHS DEREK Administration Radiology Results: ITS Impressions Abdomen/Pelvis CT 12/09/23 15:06 IMPRESSION: 1. Mesenteric and retroperitoneal lymphadenopathy. Consider lymphoma and metastatic disease. 2: Large hiatal hernia. 3: Splenomegaly. 4: Nonobstruc
[2023-12-17] MEDS: SIMVASTATIN 20 MG TABLET 40 MG PO (16:41)
[2023-12-17 20:35] VITALS: PULSE 89
[2023-12-17 21:57] LABS: Platelet Antibody, Direct POSITIVE (NEGATIVE)
[2023-12-17 22:16] VITALS: BP 120/68; PULSE 82; RESP 18; TEMP 37.7; O2SAT 94
[2023-12-18] VITALS (14 sets, daily range): BP systolic 92–124; BP diastolic 54–96; PULSE 59–104; RESP 14–20; TEMP 35.9–39.4; O2SAT 92–99
[2023-12-18] MEDS: MAGNES & ALUM HYD/SIMETH/DIPHENHYD/LIDOCAINE 119 ML MOUTHWASH BY MOUTH ×5 (02:27→20:45)
[2023-12-18 07:09] LABS: Basophils Percent Auto 0.5 % (0.2-1.2); Eosinophils Percent Auto 0.2 % (0-4.4); Hematocrit 31.2 % (42.0-52.0); Hemoglobin 10.1 g/dL (14.0-18.0); Immature Granulocyte Absolute 0.04 K/mm3 (0.00-0.031); Immature Granulocyte Percent A 0.7 % (0-0.5); Immature Platelet Fraction Pct 19.5 % (0.9-11.2); Lymphocytes Absolute Auto 1.85 K/mm3 (0.9-3.2); Lymphocytes Percent Auto 33.7 % (18.3-44.2); Mean Corpuscular HGB Conc 32.4 g/dl (32-36); Mean Corpuscular Hemoglobin 31.5 pg (26-34); Mean Corpuscular Volume 97.2 fl (80-100); Mean Platelet Volume 14.2 fl (7.4-10.4); Monocytes Absolute Auto 0.9 K/mm3 (0.1-0.6); Monocytes Percent Auto 16.4 % (2.6-8.5); Neutrophils Absolute Auto 2.7 K/mm3 (1.3-6.7); Neutrophils Percent Auto 48.5 % (45.5-73.1); Platelet Count Result 52 k/mm3 (150-375); Red Blood Count 3.21 M/mm3 (4.6-6.20); Red Cell Distribution Width 15.6 % (11.5-14.5); White Blood Count 5.5 K/mm3 (4.5-10.0)
[2023-12-18 07:16] LABS: Alanine Aminotransferase 70 U/L (6-50); Albumin Level 2.8 g/dL (3.5-5.1); Alkaline Phosphatase 162 U/L (38-126); Anion Gap 6 mmol/L (4-12); Aspartate Amino Transferase 83 U/L (17-59); Bilirubin,Total 0.7 mg/dL (0.2-1.3); Blood Urea Nitrogen 14 mg/dL (9-20); Carbon Dioxide 25 mmol/L (22-30); Chloride 97 mmol/L (98-107); Estimated CRCL calculation 56 ml/min; Estimated Glomerular Filt Rate 60; Glucose 85 mg/dL (65-110); Potassium 3.5 mmol/L (3.4-5.0); Sodium 128 mmol/L (137-145)
--- NOTE | 2023-12-18 07:47 | P.PNIM_ITS ---
Progress Note: A&P Assessment and Plan (1) Thrombocytopenia: Code(s): D69.6 - Thrombocytopenia, unspecified Status: Acute Assessment and Plan: 12/13/2023 * Platelet count 38 today. * Confirmed no further transfusion with Oncology AUTOMOTIVE PRODUCT ENGINEER Melani Kirkland on 12/11 * continue to monitor 12/14/2023: * Platelet count 31 * Continue to trend * Oncology following 12/14: Platelet count down to 22, transfused platelets again today. Will discuss with Heme/Onc again tomorrow 12/15: s/p transfusion yesterday level is 51. Surgical excision lymph node planned tomorrow so will need to transfuse about 50 for procedure. Will draw CBC after midnight and transfuse if below 50. 12/16: Platelets 60 today, will recheck tomorrow and transfuse above 50 if necessary. 12/17: Platelets 52. (2) Lymphadenopathy: Code(s): R59.1 - Generalized enlarged lymph nodes Status: Acute Assessment and Plan: 12/13/2023: * lymph node biopsy for possible lymphoma done yesterday 12/14/2023: Pathology pending 12/15: Pathology shows Granulomatous lymphadenitis. Plan is for surgical excision biopsy right axilla left lymph node tomorrow 12/16: Unable to get patient on the surgery schedule today, will undergo biopsy excisional right axilla lymph node tomorrow. 12/17: biopsy completed. (3) Esophageal ulcer: Code(s): K22.10 - Ulcer of esophagus without bleeding Status: Acute Assessment and Plan: 12/13/2023 * Aphthous ulcer noted on EGD, gastritis also noted. * Carafate and pantoprazole. * GI following 12/14/2023: * Continue with current treatment plan 12/14: Change pantoprazole to oral, additional Ensure with each meal 12/16: Esophageal ulcer biopsy positive P16,EBV. GIB resolved. Serology for CMV and HIV negative. (4) Hyponatremia: Code(s): E87.1 - Hypo-osmolality and hyponatremia Status: Acute Assessment and Plan: 12/13/23: * Sodium dropped to 130 today. * red cortisol pending * osmolality * urine osmolality, urine sodium urine urea and urine creatinine indicative of pre-renal (likely hypovolemia) in FEMA score * Ordered protein electrophoresis. * NaCL @ 75 ml as he is having poor intake * Consider Nephrology consult if sodium continues to drop. 12/14/2023: * Sodium 133 * Can be due to hypovolemia or SIADH in the appropriate setting * Serum and urine osmolarity pending * Continue IV fluids for now * Random cortisol level 19.6 * Continue to trend 12/14: Sodium 129 today has been ranging 128-133 since hospitalization, Discontinue IV fluids as patient is finally beginning to take adequate oral intake. 12/15: sodium 128 today, stable for recent levels. However, to prevent delay in surgery tomorrow will plan a small 3% saline bolus and recheck today.--3% was canceled when it was found that patient was not going to the operating room on 12/16 12/16: Without intervention sodium went to 133 today. Patient is eating and drinking better. Pain is decreased but still burning sensation in his mouth. 12/17: Na 128 today. Stable. (5) Thrush: Code(s): B37.0 - Candidal stomatitis Status: Acute Assessment and Plan: 12/13/2023: * Oral nystatin and oral lozenges ordered * oral fluconazole as recommended by ENT * repeat throat culture today given recent history of strep, treated with am oxicillin 12/14/2023: Continue with current treatment plan 12/14: Improving after addition of oral clotrimazole trochtre 12/16: Patient is eating and
--- NOTE | 2023-12-18 07:47 | PM.IMPN ---
Progress Note: A&P Assessment and Plan (1) Thrombocytopenia: Code(s): D69.6 - Thrombocytopenia, unspecified Status: Acute Assessment and Plan: 12/13/2023 Platelet count 38 today. Confirmed no further transfusion with Oncology WOOL SAMPLER Melani Kirkland on 12/11 continue to monitor 12/14/2023: Platelet count 31 Continue to trend Oncology following 12/14: Platelet count down to 22, transfused platelets again today. Will discuss with Heme/Onc again tomorrow 12/15: s/p transfusion yesterday level is 51. Surgical excision lymph node planned tomorrow so will need to transfuse about 50 for procedure. Will draw CBC after midnight and transfuse if below 50. 12/16: Platelets 60 today, will recheck tomorrow and transfuse above 50 if necessary. 12/17: Platelets 52. (2) Lymphadenopathy: Code(s): R59.1 - Generalized enlarged lymph nodes Status: Acute Assessment and Plan: 12/13/2023: lymph node biopsy for possible lymphoma done yesterday 12/14/2023: Pathology pending 12/15: Pathology shows Granulomatous lymphadenitis. Plan is for surgical excision biopsy right axilla left lymph node tomorrow 12/16: Unable to get patient on the surgery schedule today, will undergo biopsy excisional right axilla lymph node tomorrow. 12/17: biopsy completed. (3) Esophageal ulcer: Code(s): K22.10 - Ulcer of esophagus without bleeding Status: Acute Assessment and Plan: 12/13/2023 Aphthous ulcer noted on EGD, gastritis also noted. Carafate and pantoprazole. GI following 12/14/2023: Continue with current treatment plan 12/14: Change pantoprazole to oral, additional Ensure with each meal 12/16: Esophageal ulcer biopsy positive P16,EBV. GIB resolved. Serology for CMV and HIV negative. (4) Hyponatremia: Code(s): E87.1 - Hypo-osmolality and hyponatremia Status: Acute Assessment and Plan: 12/13/23: Sodium dropped to 130 today. red cortisol pending osmolality urine osmolality, urine sodium urine urea and urine creatinine indicative of pre-renal (likely hypovolemia) in FEMA score Ordered protein electrophoresis. NaCL @ 75 ml as he is having poor intake Consider Nephrology consult if sodium continues to drop. 12/14/2023: Sodium 133 Can be due to hypovolemia or SIADH in the appropriate setting Serum and urine osmolarity pending Continue IV fluids for now Random cortisol level 19.6 Continue to trend 12/14: Sodium 129 today has been ranging 128-133 since hospitalization, Discontinue IV fluids as patient is finally beginning to take adequate oral intake. 12/15: sodium 128 today, stable for recent levels. However, to prevent delay in surgery tomorrow will plan a small 3% saline bolus and recheck today.--3% was canceled when it was found that patient was not going to the operating room on 12/16 4: Without intervention sodium went to 133 today. Patient is eating and drinking better. Pain is decreased but still burning sensation in his mouth. 12/17: Na 128 today. Stable. (5) Thrush: Code(s): B37.0 - Candidal stomatitis Status: Acute Assessment and Plan: 12/13/2023: Oral nystatin and oral lozenges ordered oral fluconazole as recommended by ENT repeat throat culture today given recent history of strep, treated with amoxicillin 12/14/2023: Continue with current treatment plan 12/14: Improving after addition of oral clotrimazole troches 12/16: Patient is eating and drinking better. Pain is decreased but still burning sensation in his mouth.--will need continued nystatin, fluconazole, clotrimazole and Magic mouthwash on discharge 12/17: Continue nystatin, magic mouth wash, fluconazole, and clotrimazole. (6) Colon ulcer: Code(s): K63.3 - Ulcer of intestine Status: Acute Assessment and Plan: 12/13/2023: Multiple colonic ulcers noted on colonoscopy hold all immunosuppressants at this time per recommendation Gastr
[2023-12-18 08:03] LABS: Anisocytosis 1+; Platelet Estimate Decreased (Adequate); Polychromasia 1+
[2023-12-18 08:04] LABS: Schistocytes None Seen
[2023-12-18] MEDS: FLUCONAZOLE 100 MG TABLET PO (08:25)
[2023-12-18] MEDS: METOPROLOL TARTRATE 25 MG TABLET PO ×2 (08:25→20:30)
[2023-12-18] MEDS: AZITHROMYCIN 250 MG TABLET 500 MG PO (08:25)
[2023-12-18] MEDS: PANTOPRAZOLE 40 MG TABLET PO ×2 (08:27→20:30)
[2023-12-18] MEDS: NYSTATIN 100,000 UNITS/ML SUSP 5 ML ORAL.SUSP PO ×3 (08:27→20:29)
[2023-12-18] MEDS: ACETAMINOPHEN ELIXIR 325 MG/10.15 ML UDC 650 MG PO ×2 (08:41→20:29)
[2023-12-18] MEDS: CLOTRIMAZOLE 10 MG TROC PO ×4 (08:46→20:30)
--- NOTE | 2023-12-18 11:51 | PC.NURSE ---
To OR per [yo], IV [20 L FA]. Report given to [yo].
--- NOTE | 2023-12-18 12:03 | WPDHPUPDATE1 ---
History and Physical Update Update Date/Time: 12/18/23 12:03 History and Physical has been reviewed, including an updated exam of the patient. There are NO changes in the patient's condition. Risks, benefits, and alternatives have been discussed and questions answered. Patient agrees to proceed with procedure.
--- NOTE | 2023-12-18 12:07 | WPDANESEPPF ---
Anes - Initial Pre Proc Eval Procedure: Operation Date: 12/10/23 15:30 Proposed Procedures p Esophagogastroduodenoscopy & Colonoscopy - Nabeel Kelly MD Operation Date: 12/18/23 13:00 Proposed Procedures p Right Axillary Node Biopsy - Gita Mora MD Date/Time: 12/18/23 12:07 Surgeon: Virginia Joshi MD Pre Op Diagnosis: rectal bleeding Patient Data Age: 68 Gender: M Height: 1.83 m Weight: 77 kg Last Vital Signs Temp 97.5 F L 12/18/23 05:06 Pulse 80 12/18/23 08:25 Resp 16 12/18/23 05:06 BP 113/72 12/18/23 05:06 Pulse Ox 92 12/18/23 08:00 O2 Del Method Room Air 12/18/23 08:00 O2 Flow Rate 2 12/11/23 20:00 FiO2 21 12/09/23 08:33 Allergies Allergy/AdvReac Type Severity Reaction Status Date / Time aspirin Allergy Mild Swelling Verified 12/18/23 12:06 heparin AdvReac Unknown Unknown Verified 12/18/23 12:06 Home Medications Medication Instructions Recorded Confirmed Type folic acid 1 mg tablet 1 mg PO DAILY 10/16/19 12/09/23 History methotrexate sodium 2.5 mg tablet 25 mg PO WEEKLY 10/16/19 12/09/23 History finasteride 1 mg tablet 1 mg PO DAILY #90 tabs 08/21/23 12/09/23 Rx golimumab 12.5 mg/mL intravenous 12.5 mg IV .[id number] 08/23/23 12/09/23 History solution (Simponi ARIA) metoprolol tartrate 50 mg tablet 25 mg PO Q12H #90 tabs 12/04/23 12/09/23 Rx acetaminophen 500 mg tablet 1,000 mg PO Q8H 12/09/23 12/09/23 History aspirin 81 mg tablet,delayed 81 mg PO DAILY 12/09/23 12/09/23 History release (Adult Low Dose Aspirin) multivitamin 1 tablet PO DAILY 12/09/23 12/09/23 History simvastatin 40 mg tablet 40 mg PO 1700 12/09/23 12/09/23 History Laboratory Tests 03/26/24 03/28/24 04/03/24 08:40 08:32 05:18 WBC 5.5 K/mm3 (4.5-10.0) RBC 3.21 L M/mm3 (4.6-6.20) Hgb 10.1 L g/dL (14.0-18.0) Hct 31.2 L % (42.0-52.0) MCV 97.2 fl (80-100) MCH 31.5 pg (26-34) MCHC 32.4 g/dl (32-36) RDW 15.6 H % (11.5-14.5) Plt Count 52 L k/mm3 (150-375) MPV 14.2 H fl (7.4-10.4) Immature Gran % (Auto) 0.7 H % (0-0.5) Neut % (Auto) 48.5 % (45.5-73.1) Lymph % (Auto) 33.7 % (18.3-44.2) [place] % (Auto) 16.4 H % (2.6-8.5) Eos % (Auto) 0.2 % (0-4.4) Baso % (Auto) 0.5 % (0.2-1.2) Lymph # (Auto) 1.85 K/mm3 (0.9-3.2) [place] # (Auto) 0.9 H K/mm3 (0.1-0.6) Eos # (Auto) 0.0 K/mm3 (0-0.3) Baso # (Auto) 0.0 K/mm3 (0.0-0.1) Abs Immat Gran (auto) 0.04 H K/mm3 (0.00-0.031) Absolute Neuts (auto) 2.7 K/mm3 (1.3-6.7) Absolute Nucleated RBC 0.000 K/mm3 (0.0-0.012) Nucleated RBC % 0.0 % (0.0-0.2) Platelet Estimate Decreased (Adequate) % Immature Plt Fraction 19.5 H % (0.9-11.2) Polychromasia 1+ Anisocytosis 1+ Schistocytes None seen Sodium 128 L mmol/L (137-145) Potassium 3.5 mmol/L (3.4-5.0) Chloride 97 L mmol/L (98-107) Carbon Dioxide 25 mmol/L (22-30) Anion Gap 6 L mmol/L (4-12) BUN 14 mg/dL (9-20) Creatinine 1.20 mg/dL (0.7-1.3) Estim Creat Clear Calc 56 ml/min Estimated GFR 60 (59 - ) Glucose 85 mg/dL (65-110) Calcium 9.0 mg/dL (8.4-10.2) Magnesium 2.0 mg/dL (1.6-2.3) Total Bilirubin 0.7 mg/dL (0.2-1.3) AST 83 H U/L (17-59) ALT 70 H U/L (6-50) Alkaline Phosphatase 162 H U/L (38-126) Total Protein 6.0 L g/dL (6.3-8.2) Albumin 2.8 L g/dL (3.5-5.1) Direct Plt-Bound IgG Ab Positive A (NEGATIVE) EBV Capsid Ag IgG Ab Pending EBV Capsid Ag IgM Ab Pending EBV Nucl Ag IgG Sig Str Pending EBV Nuc Ag
[2023-12-18] MEDS: LACTATED RINGERS 1,000 ML 30 ML IV CONT (12:30)
[2023-12-18] MEDS: ceFAZolin 2 GM/D5W 50 ML 2 GM/50 ML BAG IVPB (13:09)
[2023-12-18] MEDS: BUPIVACAINE/EPINEPHRINE 0.5% 30 ML VIAL INFILTRATE (13:28)
--- NOTE | 2023-12-18 14:06 | P.OP_ITS ---
Procedure Note - Detailed Date of Procedure 12/18/23 Pre-op Diagnosis diffuse lymphadenopathy Post-op Diagnosis Same Procedure Performed right axillary lymph node biopsy Surgeon Gita Mora MD Anesthesia MAC and Local Indications 68-year-old male with diffuse lymphadenopathy. Previous ultrasound-guided b iopsy did not yield diagnosis. Findings Mild lymphadenopathy right axilla Description of Procedure The patient was taken to the operating room and placed in the supine position. After adequate induction MAC anesthesia, the patient was prepped and draped in the normal sterile fashion. A time-out was then done to verify patient's identity, as well as the procedure being performed. I began by localizing the anticipated incision line in the right axilla. I then made an incision and gained to the right axilla. Upon palpating this area, there was noted to be some subtle lymphadenopathy. There was no over lymphadenopathy. I was able to excise 2 areas of lymph nodes. These will be sent to pathology for further review. I then gained hemostasis with the Bovie cautery. No other pathology was noted in the axilla. Further local anesthetic was placed. I then closed the subcutaneous tissue with 3-0 Vicryl suture. The skin was closed with 4-0 Monocryl subcuticular suture. Dermabond was placed on the wound. The patient tolerated the procedure well and was alert and awake in the operating room postoperatively. He will be transferred to the recovery room in stable condition. Estimated Blood Loss 5 Urine Output 0 Drains No Packing No Pathology Yes Complications No immediate complications Condition Stable Disposition PACU [facility] Billing Surgery - Charge Forward: Surgery Billing
--- NOTE | 2023-12-18 14:27 | PC.NURSE ---
Returned from OR per [ ]. Report received from [Aria ].
[2023-12-18] MEDS: SUCRALFATE SUSP 100 MG/ML 10 ML UDC 1000 MG PO ×2 (15:47→20:30)
[2023-12-18] MEDS: SIMVASTATIN 20 MG TABLET 40 MG PO (16:18)
[2023-12-19] VITALS (9 sets, daily range): BP systolic 101–113; BP diastolic 60–73; PULSE 67–81; RESP 18–20; TEMP 36.7–39; O2SAT 92–97
[2023-12-19] MEDS: MAGNES & ALUM HYD/SIMETH/DIPHENHYD/LIDOCAINE 119 ML MOUTHWASH BY MOUTH ×6 (01:04→21:58)
[2023-12-19] MEDS: SUCRALFATE SUSP 100 MG/ML 10 ML UDC 1000 MG PO ×4 (06:24→21:57)
[2023-12-19 06:46] LABS: Basophils Percent Auto 0.6 % (0.2-1.2); Eosinophils Percent Auto 0.2 % (0-4.4); Hematocrit 33.6 % (42.0-52.0); Hemoglobin 10.8 g/dL (14.0-18.0); Immature Granulocyte Absolute 0.02 K/mm3 (0.00-0.031); Immature Granulocyte Percent A 0.4 % (0-0.5); Immature Platelet Fraction Pct 19.5 % (0.9-11.2); Lymphocytes Absolute Auto 1.42 K/mm3 (0.9-3.2); Mean Corpuscular HGB Conc 32.1 g/dl (32-36); Mean Corpuscular Hemoglobin 31.3 pg (26-34); Mean Corpuscular Volume 97.4 fl (80-100); Mean Platelet Volume 13.9 fl (7.4-10.4); Monocytes Absolute Auto 0.9 K/mm3 (0.1-0.6); Monocytes Percent Auto 17.9 % (2.6-8.5); Neutrophils Absolute Auto 2.4 K/mm3 (1.3-6.7); Neutrophils Percent Auto 50.9 % (45.5-73.1); Platelet Count Result 51 k/mm3 (150-375); Red Blood Count 3.45 M/mm3 (4.6-6.20); Red Cell Distribution Width 15.7 % (11.5-14.5); White Blood Count 4.7 K/mm3 (4.5-10.0)
[2023-12-19 06:57] LABS: Alanine Aminotransferase 60 U/L (6-50); Albumin Level 2.9 g/dL (3.5-5.1); Alkaline Phosphatase 165 U/L (38-126); Anion Gap 2 mmol/L (4-12); Aspartate Amino Transferase 78 U/L (17-59); Bilirubin,Total 0.7 mg/dL (0.2-1.3); Blood Urea Nitrogen 16 mg/dL (9-20); Calcium 9.4 mg/dL (8.4-10.2); Carbon Dioxide 31 mmol/L (22-30); Chloride 98 mmol/L (98-107); Estimated CRCL calculation 56 ml/min; Estimated Glomerular Filt Rate 60; Glucose 85 mg/dL (65-110); Magnesium 2.1 mg/dL (1.6-2.3); Sodium 131 mmol/L (137-145)
[2023-12-19 07:50] LABS: Angiotensin Converting Enzyme 107.3 U/L (9-67)
--- NOTE | 2023-12-19 08:25 | P.PNIM_ITS ---
Progress Note: A&P Assessment and Plan (1) Thrombocytopenia: Code(s): D69.6 - Thrombocytopenia, unspecified Status: Acute Assessment and Plan: 12/13/2023 * Platelet count 38 today. * Confirmed no further transfusion with Oncology GEOSPATIAL DEVELOPER Melani Kirkland on 12/11 * continue to monitor 12/14/2023: * Platelet count 31 * Continue to trend * Oncology following 12/14: Platelet count down to 22, transfused platelets again today. Will discuss with Heme/Onc again tomorrow 12/15: s/p transfusion yesterday level is 51. Surgical excision lymph node planned tomorrow so will need to transfuse about 50 for procedure. Will draw CBC after midnight and transfuse if below 50. 12/16: Platelets 60 today, will recheck tomorrow and transfuse above 50 if necessary. 12/17: Platelets 52. 12/18: Platelets 51. No active bleeding (2) Lymphadenopathy: Code(s): R59.1 - Generalized enlarged lymph nodes Status: Acute Assessment and Plan: 12/13/2023: * lymph node biopsy for possible lymphoma done yesterday 12/14/2023: Pathology pending 12/15: Pathology shows Granulomatous lymphadenitis. Plan is for surgical excision biopsy right axilla left lymph node tomorrow 12/16: Unable to get patient on the surgery schedule today, will undergo biopsy e xcisional right axilla lymph node tomorrow. 12/17: biopsy completed. 12/18: Status post biopsy. Incision is well approximated with Dermabond. (3) Esophageal ulcer: Code(s): K22.10 - Ulcer of esophagus without bleeding Status: Acute Assessment and Plan: 12/13/2023 * Aphthous ulcer noted on EGD, gastritis also noted. * Carafate and pantoprazole. * GI following 12/14/2023: * Continue with current treatment plan 12/14: Change pantoprazole to oral, additional Ensure with each meal 12/16: Esophageal ulcer biopsy positive P16,EBV. GIB resolved. Serology for CMV and HIV negative. 12/18: Continue with PPI and Carafate (4) Hyponatremia: Code(s): E87.1 - Hypo-osmolality and hyponatremia Status: Acute Assessment and Plan: 12/13/23: * Sodium dropped to 130 today. * red cortisol pending * osmolality * urine osmolality, urine sodium urine urea and urine creatinine indicative of pre-renal (likely hypovolemia) in FEMA score * Ordered protein electrophoresis. * NaCL @ 75 ml as he is having poor intake * Consider Nephrology consult if sodium continues to drop. 12/14/2023: * Sodium 133 * Can be due to hypovolemia or SIADH in the appropriate setting * Serum and urine osmolarity pending * Continue IV fluids for now * Random cortisol level 19.6 * Continue to trend 12/14: Sodium 129 today has been ranging 128-133 since hospitalization, Discontinue IV fluids as patient is finally beginning to take adequate oral intake. 12/15: sodium 128 today, stable for recent levels. However, to prevent delay in surgery tomorrow will plan a small 3% saline bolus and recheck today.--3% was canceled when it was found that patient was not going to the operating room on 12/16 12/16: Without intervention sodium went to 133 today. Patient is eating and drinking better. Pain is decreased but still burning sensation in his mouth. 12/17: Na 128 today. Stable. 12/18: Na131. Stable (5) Thrush: Code(s): B37.0 - Candidal stomatitis Status: Acute Assessment and Plan: 12/13/2023: * Oral nystatin and oral lozenges ordered * oral fluconazole as recommended by ENT * repeat throat culture today given recent history of strep, treated
--- NOTE | 2023-12-19 08:25 | PM.IMPN ---
Progress Note: A&P Assessment and Plan (1) Thrombocytopenia: Code(s): D69.6 - Thrombocytopenia, unspecified Status: Acute Assessment and Plan: 12/13/2023 Platelet count 38 today. Confirmed no further transfusion with Oncology FIRE CONTROL TECHNICIAN Melani Kirkland on 12/11 continue to monitor 12/14/2023: Platelet count 31 Continue to trend Oncology following 12/14: Platelet count down to 22, transfused platelets again today. Will discuss with Heme/Onc again tomorrow 12/15: s/p transfusion yesterday level is 51. Surgical excision lymph node planned tomorrow so will need to transfuse about 50 for procedure. Will draw CBC after midnight and transfuse if below 50. 12/16: Platelets 60 today, will recheck tomorrow and transfuse above 50 if necessary. 12/17: Platelets 52. 12/18: Platelets 51. No active bleeding (2) Lymphadenopathy: Code(s): R59.1 - Generalized enlarged lymph nodes Status: Acute Assessment and Plan: 12/13/2023: lymph node biopsy for possible lymphoma done yesterday 12/14/2023: Pathology pending 12/15: Pathology shows Granulomatous lymphadenitis. Plan is for surgical excision biopsy right axilla left lymph node tomorrow 12/16: Unable to get patient on the surgery schedule today, will undergo biopsy excisional right axilla lymph node tomorrow. 12/17: biopsy completed. 12/18: Status post biopsy. Incision is well approximated with Dermabond. (3) Esophageal ulcer: Code(s): K22.10 - Ulcer of esophagus without bleeding Status: Acute Assessment and Plan: 12/13/2023 Aphthous ulcer noted on EGD, gastritis also noted. Carafate and pantoprazole. GI following 12/14/2023: Continue with current treatment plan 12/14: Change pantoprazole to oral, additional Ensure with each meal 12/16: Esophageal ulcer biopsy positive P16,EBV. GIB resolved. Serology for CMV and HIV negative. 12/18: Continue with PPI and Carafate (4) Hyponatremia: Code(s): E87.1 - Hypo-osmolality and hyponatremia Status: Acute Assessment and Plan: 12/13/23: Sodium dropped to 130 today. red cortisol pending osmolality urine osmolality, urine sodium urine urea and urine creatinine indicative of pre-renal (likely hypovolemia) in FEMA score Ordered protein electrophoresis. NaCL @ 75 ml as he is having poor intake Consider Nephrology consult if sodium continues to drop. 12/14/2023: Sodium 133 Can be due to hypovolemia or SIADH in the appropriate setting Serum and urine osmolarity pending Continue IV fluids for now Random cortisol level 19.6 Continue to trend 12/14: Sodium 129 today has been ranging 128-133 since hospitalization, Discontinue IV fluids as patient is finally beginning to take adequate oral intake. 12/15: sodium 128 today, stable for recent levels. However, to prevent delay in surgery tomorrow will plan a small 3% saline bolus and recheck today.--3% was canceled when it was found that patient was not going to the operating room on 12/16 12/16: Without intervention sodium went to 133 today. Patient is eating and drinking better. Pain is decreased but still burning sensation in his mouth. 12/17: Na 128 today. Stable. 12/18: Na131. Stable (5) Thrush: Code(s): B37.0 - Candidal stomatitis Status: Acute Assessment and Plan: 12/13/2023: Oral nystatin and oral lozenges ordered oral fluconazole as recommended by ENT repeat throat culture today given recent history of strep, treated with amoxicillin 12/14/2023: Continue with current treatment plan 12/14: Improving after addition of oral clotrimazole troches 12/16: Patient is eating and drinking better. Pain is decreased but still burning sensation in his mouth.--will need continued nystatin, fluconazole, clotrimazole and Magic mouthwash on discharge 12/17: Continue nystatin, magic mouth wash, fluconazole, and clotrimazole. 12/18: Continue with current treatment (6) Colon ulcer:
[2023-12-19] MEDS: PANTOPRAZOLE 40 MG TABLET PO ×2 (08:38→21:58)
[2023-12-19] MEDS: NYSTATIN 100,000 UNITS/ML SUSP 5 ML ORAL.SUSP PO ×4 (08:38→21:57)
[2023-12-19] MEDS: CLOTRIMAZOLE 10 MG TROC PO ×5 (08:38→21:58)
--- NOTE | 2023-12-19 08:38 | WPDANESPN ---
Anes - Prog Note Post-Op Date/Time: 12/19/23 08:38 Cardiovascular status: normal Respiratory status: normal Airway patency: baseline Mental status: baseline Post-Op hydration status: normal Vital Signs: Last Vital Signs Temp 37.0 C 12/19/23 06:20 Pulse 80 12/19/23 06:20 Resp 18 12/19/23 06:20 BP 104/73 12/19/23 06:20 Pulse Ox 94 12/19/23 06:20 O2 Del Method Room Air 12/18/23 20:00 O2 Flow Rate 8 12/18/23 13:54 FiO2 21 12/09/23 08:33 Pain Score (VAS): 0 I/O: Intake & Output 12/18/23 12/19/23 12/19/23 23:59 07:59 15:59 Intake Total 350 Balance 350 Laboratory Tests 12/19/23 05:30 12/19/23 05:30 12/12/23 12/16/23 12/19/23 08:32 12:08 05:30 WBC 4.7 RBC 3.45 L Hgb 10.8 L Hct 33.6 L MCV 97.4 MCH 31.3 MCHC 32.1 RDW 15.7 H Plt Count 51 L MPV 13.9 H Immature Gran % (Auto) 0.4 Neut % (Auto) 50.9 Lymph % (Auto) 30.0 [place] % (Auto) 17.9 H Eos % (Auto) 0.2 Baso % (Auto) 0.6 Lymph # (Auto) 1.42 [place] # (Auto) 0.9 H Eos # (Auto) 0.0 Baso # (Auto) 0.0 Abs Immat Gran (auto) 0.02 Absolute Neuts (auto) 2.4 Absolute Nucleated RBC 0.000 Nucleated RBC % 0.0 % Immature Plt Fraction 19.5 H Sodium 131 L Potassium 4.0 Chloride 98 Carbon Dioxide 31 H Anion Gap 2 L BUN 16 Creatinine 1.20 Estim Creat Clear Calc 56 Estimated GFR 60 Glucose 85 Calcium 9.4 Magnesium 2.1 Total Bilirubin 0.7 AST 78 H ALT 60 H Alkaline Phosphatase 165 H Total Protein 6.0 L Albumin 2.9 L Angiotensin Convert Enz 107.3 H Blood Type O Positive Microbiology 12/12/23 23:21 Blood Blood Culture - Final 12/12/23 23:21 Blood Blood Culture - Final Post-procedural complaints: none Patient Feedback: Patient satisfied with anesthetic care.
[2023-12-19] MEDS: FLUCONAZOLE 100 MG TABLET PO (08:39)
[2023-12-19] MEDS: METOPROLOL TARTRATE 25 MG TABLET PO (08:39)
[2023-12-19] MEDS: AZITHROMYCIN 250 MG TABLET 500 MG PO (08:39)
--- NOTE | 2023-12-19 12:35 | PM.PNGS ---
Progress Note: A&P Assessment and Plan (1) Lymphadenopathy: Code(s): R59.1 - Generalized enlarged lymph nodes Status: Acute Assessment and Plan: await path, cont local wound care, will s/o, call c ?s, issues Subjective Subjective Date/Time Seen: 12/19/23 12:35 Interval history: feels ok, still c fevers, sweats, weakness Review of Systems Review of Systems: All systems reviewed & are unremarkable except as noted in HPI and below Exam Const: General: cooperative, comfortable, no acute distress and ill appearing Resp: Auscultation: clear to auscultation bilaterally Cardio: Rate: regular rate Rhythm: regular rhythm GI: Inspection: normal to inspection Extrem: Other: R axilla - incision C/D/I, mild bruising Objective Data Vital Signs Vital Signs: Vital Signs - 24 hr 12/18/23 12:46 12/18/23 13:54 12/18/23 14:00 Temperature 36.5 C 36.4 C Pulse Rate 59 L 63 63 Respiratory Rate 16 18 18 Blood Pressure 96/54 L 92/63 L 103/63 Pulse Oximetry 94 99 99 Oxygen Delivery Room Air Simple Face Mask Room Air Oxygen Flow Rate 8 12/18/23 14:15 12/18/23 14:30 12/18/23 14:52 Temperature 35.9 C L Pulse Rate 63 61 94 Respiratory Rate 16 14 14 Blood Pressure 107/69 119/62 116/96 H Pulse Oximetry 96 96 92 Oxygen Delivery Room Air Room Air Oxygen Flow Rate 12/18/23 20:29 12/18/23 20:30 12/18/23 22:13 Temperature 39.4 C H 39.4 C H Pulse Rate 102 H 104 H Respiratory Rate 20 Blood Pressure 124/61 Pulse Oximetry 93 Oxygen Delivery Oxygen Flow Rate 12/18/23 21:29 12/18/23 21:35 12/19/23 00:39 Temperature 37.9 C H 37.9 C H 36.8 C Pulse Rate Respiratory Rate Blood Pressure Pulse Oximetry Oxygen Delivery Oxygen Flow Rate 12/18/23 20:00 12/19/23 06:20 12/19/23 08:39 Temperature 37.0 C Pulse Rate 80 68 Respiratory Rate 18 Blood Pressure 104/73 Pulse Oximetry 94 Oxygen Delivery Room Air Oxygen Flow Rate 12/19/23 08:44 12/19/23 08:00 Temperature 37.2 C Pulse Rate 68 Respiratory Rate Blood Pressure Pulse Oximetry 97 Oxygen Delivery Room Air Oxygen Flow Rate Intake/Output Intake/Output: Intake & Output 12/16/23 12/17/23 12/18/23 12/19/23 23:59 23:59 23:59 23:59 Intake Total 1020 925 92 710 Output Total 0 0 0 Balance 1020 925 92 710 Meds/Results Medications: Active Medications Generic Name Dose Route Start Last Admin Trade Name Freq PRN Reason Stop Dose Admin Acetaminophen 650 mg 12/11/23 19:50 12/18/23 20:29 Acetaminophen Elixir 325 Mg/10.15 Ml Udc PO 650 mg Q4H PRN Administration pain or Fever Hydrocodone Bitart/Acetaminophen 1 tab 12/12/23 11:20 Hydrocodone/Acetaminophen (*Crx) 7.5-325 Mg Tablet PO Q6H PRN Pain Rated 8-10 Azithromycin 500 mg 12/16/23 10:30 12/19/23 08:39 Azithromycin 250 Mg Tablet PO 12/20/23 09:01 500 mg DAILY DEREK Administration Clotrimazole 10 mg 12/13/23 21:00 12/19/23 11:12 Clotrimazole 10 Mg Troc PO 10 mg 5 TIMES DAILY DEREK Administration Fluconazole 100 mg 12/11/23 09:00 12/19/23 08:39 Fluconazole 100 Mg Tablet PO 12/24/23 09:01 100 mg QAM DEREK Administration Hydromorphone HCl 0.25 mg 12/18/23 12:27 Hydromorphone Hcl Inj (*Crx) 1 Mg/Ml Syr IV PUSH Q5M PRN Pain Lidocaine/Diphenhydr/Alum/Mg/Simeth 5 ml 12/10/23 13:00 12/19/23 12:09 Magnes & Alum Hyd/Simeth/Diphenhyd/Lidocaine 119 Ml Mouthwash BY MOUTH 01/09/24 12:59 5 ml Q4HR DEREK Administration Metoprolol Tartrate 25 mg 12/09/23 11:05 12/19/23 08:39 Metoprolol Tartrate 25 Mg Tablet PO 25 mg Q12HR DEREK Administration Miscellaneous Information 0 each 12/18/23 00:01 Please Renew Nystatin S/S If Still Needed- 10 Day [employer] XX 01/17/24 00:00 CLARIFY DEREK Nystatin 5 ml 12/09/23 13:00 12/19/23 12:09 Nystatin 100,000 Units/Ml Susp 5 Ml Oral.Susp PO 5 ml QID DEREK Administration Ondansetro
[2023-12-19] MEDS: ACETAMINOPHEN ELIXIR 325 MG/10.15 ML UDC 650 MG PO (14:50)
[2023-12-19] MEDS: SIMVASTATIN 20 MG TABLET 40 MG PO (16:23)
[2023-12-20 05:28] VITALS: BP 107/73; PULSE 98; RESP 20; TEMP 37.7; O2SAT 94
[2023-12-20] MEDS: MAGNES & ALUM HYD/SIMETH/DIPHENHYD/LIDOCAINE 119 ML MOUTHWASH BY MOUTH ×5 (06:10→21:47)
[2023-12-20] MEDS: SUCRALFATE SUSP 100 MG/ML 10 ML UDC 1000 MG PO ×4 (06:10→21:47)
[2023-12-20 07:38] LABS: Basophils Percent Auto 0.7 % (0.2-1.2); Hematocrit 30.9 % (42.0-52.0); Hemoglobin 9.9 g/dL (14.0-18.0); Immature Granulocyte Absolute 0.01 K/mm3 (0.00-0.031); Immature Granulocyte Percent A 0.2 % (0-0.5); Immature Platelet Fraction Pct 16.3 % (0.9-11.2); Lymphocytes Absolute Auto 1.56 K/mm3 (0.9-3.2); Lymphocytes Percent Auto 35.6 % (18.3-44.2); Mean Corpuscular Hemoglobin 30.9 pg (26-34); Mean Corpuscular Volume 96.6 fl (80-100); Mean Platelet Volume 14.6 fl (7.4-10.4); Monocytes Absolute Auto 0.8 K/mm3 (0.1-0.6); Monocytes Percent Auto 17.1 % (2.6-8.5); Neutrophils Percent Auto 46.4 % (45.5-73.1); Platelet Count Result 33 k/mm3 (150-375); Red Cell Distribution Width 15.2 % (11.5-14.5); White Blood Count 4.4 K/mm3 (4.5-10.0)
[2023-12-20 08:12] LABS: Alanine Aminotransferase 48 U/L (6-50); Albumin Level 2.6 g/dL (3.5-5.1); Alkaline Phosphatase 163 U/L (38-126); Anion Gap 1 mmol/L (4-12); Aspartate Amino Transferase 79 U/L (17-59); Bilirubin,Total 0.6 mg/dL (0.2-1.3); Blood Urea Nitrogen 16 mg/dL (9-20); Carbon Dioxide 29 mmol/L (22-30); Chloride 98 mmol/L (98-107); Estimated CRCL calculation 52 ml/min; Estimated Glomerular Filt Rate 55; Glucose 92 mg/dL (65-110); Potassium 3.6 mmol/L (3.4-5.0); Sodium 128 mmol/L (137-145)
[2023-12-20 09:09] VITALS: PULSE 100
[2023-12-20] MEDS: NYSTATIN 100,000 UNITS/ML SUSP 5 ML ORAL.SUSP PO ×4 (09:09→21:47)
[2023-12-20] MEDS: METOPROLOL TARTRATE 25 MG TABLET PO (09:09)
[2023-12-20] MEDS: AZITHROMYCIN 250 MG TABLET 500 MG PO (09:10)
[2023-12-20] MEDS: CLOTRIMAZOLE 10 MG TROC PO ×4 (09:10→21:48)
[2023-12-20] MEDS: PANTOPRAZOLE 40 MG TABLET PO ×2 (09:10→21:48)
[2023-12-20] MEDS: FLUCONAZOLE 100 MG TABLET PO (10:25)
--- NOTE | 2023-12-20 11:46 | PCNFU ---
Nutrition Follow-Up Complete: Inadequate energy intake related to NPO status as evidenced by current diet orders Goal: Adequate intake over 50% of meals Pt is meeting goal. Continue with same goal Pt current nutrition is Regular, Ensure compact 2 per tray. Nutrition recommendation: continue with current plan of care Last recorded weight is 77 kg. Bowel Motility: +BM 4/5 Labs Reviewed: Hgb:9.9, HCT:30.9, Alb:2.6, NA:128 Meds Noted: protonix, zofran Skin: no skin issues noted Additional Notes: Pt continues on a regular diet, intake improved to 50-75% at this time but pt reports still really does not have an appetite. Drinking Ensure compact between meals. Possible discharge today. Recommended nutrition protein shakes or powder for home use since appetite and intake are still reduced. Monitor diet orders, intake, wt, labs. Follow up in 3 days.
[2023-12-20 13:48] VITALS: BP 101/62; PULSE 72; RESP 16; TEMP 36.7; O2SAT 93
--- NOTE | 2023-12-20 15:14 | PM.DS ---
DS: Admitting Diagnosis Discharge Date 12/20/2023 DS: Discharge Diagnosis Discharge Diagnosis (1) Thrombocytopenia: Code(s): D69.6 - Thrombocytopenia, unspecified Status: Acute (2) Lymphadenopathy: Code(s): R59.1 - Generalized enlarged lymph nodes Status: Acute (3) Esophageal ulcer: Code(s): K22.10 - Ulcer of esophagus without bleeding Status: Acute (4) Hyponatremia: Code(s): E87.1 - Hypo-osmolality and hyponatremia Status: Acute (5) Thrush: Code(s): B37.0 - Candidal stomatitis Status: Acute (6) Colon ulcer: Code(s): K63.3 - Ulcer of intestine Status: Acute (7) Rectal bleed: Code(s): K62.5 - Hemorrhage of anus and rectum Status: Acute (8) Immunocompromised: Code(s): D84.9 - Immunodeficiency, unspecified Status: Chronic (9) Rheumatoid arthritis: Code(s): M06.9 - Rheumatoid arthritis, unspecified Status: Acute (10) HLD (hyperlipidemia): Code(s): E78.5 - Hyperlipidemia, unspecified Status: Chronic (11) CAD (coronary artery disease): Code(s): I25.10 - Atherosclerotic heart disease of [place] coronary artery without angina pectoris Status: Chronic DS: Summary Time Spent with Patient Time attestation: Total time spent providing and/or coordinating discharge services: Exam Narrative: General: well appearing, well developed, well nourished, appears stated age. HEENT: normocephalic, atraumatic. Mucous membranes moist. EOMI, PERRLA, bilateral sclera anicteric, no conjunctival injection. Neck supple without JVD, lymphadenopathy, or bruit. Respiratory: diminished and coarse to RLL. No rales/rhonic/wheezes. Cardiovascular: Regular rate and rhythm, normal S1-S2 upon auscultation. No murmurs, rubs, or clicks. PMI is nondisplaced, capillary re-fill less than 3 second. Abdomen: Soft, flat, no pulsatile masses, non-distended and non-tender. No rebound, no guarding. No CVA tenderness, no hepatosplenomegaly. Bowel sounds present to all four quadrants. No high pitch or tinkling sounds, resonant to percussion. Extremities: No cyanosis, clubbing, or edema present. Pulses are palpable 2/2. Active ROM to all four extremities. Neuro: Alert and orientated x 4. PERRLA. Cranial nerves 2-12 intact without focal deficit. Skin: Warm, dry, and intact, without rash, erythema, or lesion. Lines: PIV Incisions: Right axilla incision with Dermabond C/D/I Psych: pleasant, cooperative, normal speech, normal affect, no hallucinations, no dysarthria DS: Data Data Completed and Pending Completed studies during hospitalization: Pending at discharge 12/10/23 12:02 Surgical [PTH] Routine 12/12/23 08:50 Surgical [PTH] Routine 12/18/23 13:44 Surgical [PTH] Routine Labs on day of discharge: Labs from last 24 hours 12/20/23 06:06 WBC 4.4 L RBC 3.20 L Hgb 9.9 L Hct 30.9 L MCV 96.6 MCH 30.9 MCHC 32.0 RDW 15.2 H Plt Count 33 L MPV 14.6 H Immature Gran % (Auto) 0.2 Neut % (Auto) 46.4 Lymph % (Auto) 35.6 [place] % (Auto) 17.1 H Eos % (Auto) 0.0 Baso % (Auto) 0.7 Lymph # (Auto) 1.56 [place] # (Auto) 0.8 H Eos # (Auto) 0.0 Baso # (Auto) 0.0 Abs Immat Gran (auto) 0.01 Absolute Neuts (auto) 2.0 Absolute Nucleated RBC 0.000 Nucleated RBC % 0.0 % Immature Plt Fraction 16.3 H Sodium 128 L Potassium 3.6 Chloride 98 Carbon Dioxide 29 Anion Gap 1 L BUN 16 Creatinine 1.30 Estim Creat Clear Calc 52 Estimated GFR 55 L Glucose 92 Calcium 9.0 Magnesium 2.0 Total Bilirubin 0.6 AST 79 H ALT 48 Alkaline Phosphatase 163 H Total Protein 6.0 L Albumin 2.6 L Preliminary micro results at discharge 12/19/23 09:32 Blood Culture - Preliminary Blood 12/19/23 09:24 Blood Culture - Preliminary Blood Discharge Plan Discharge Consulting providers: Nabeel Kelly; Brenden Stewart; Andre Mccormack; Gita Mora Discharge In
--- NOTE | 2023-12-20 15:30 | PM.IMPN ---
Progress Note: A&P Assessment and Plan (1) Thrombocytopenia: Code(s): D69.6 - Thrombocytopenia, unspecified Status: Acute (2) Lymphadenopathy: Code(s): R59.1 - Generalized enlarged lymph nodes Status: Acute (3) Esophageal ulcer: Code(s): K22.10 - Ulcer of esophagus without bleeding Status: Acute (4) Hyponatremia: Code(s): E87.1 - Hypo-osmolality and hyponatremia Status: Acute (5) Thrush: Code(s): B37.0 - Candidal stomatitis Status: Acute (6) Colon ulcer: Code(s): K63.3 - Ulcer of intestine Status: Acute (7) Rectal bleed: Code(s): K62.5 - Hemorrhage of anus and rectum Status: Acute (8) Immunocompromised: Code(s): D84.9 - Immunodeficiency, unspecified Status: Chronic (9) Rheumatoid arthritis: Code(s): M06.9 - Rheumatoid arthritis, unspecified Status: Acute (10) HLD (hyperlipidemia): Code(s): E78.5 - Hyperlipidemia, unspecified Status: Chronic (11) CAD (coronary artery disease): Code(s): I25.10 - Atherosclerotic heart disease of [place] coronary artery without angina pectoris Status: Chronic Plan This is a 68-year-old male with past medical history of coronary artery disease GERD rheumatoid up some biologics and methotrexate history of [place] with stent placement presented to the ER with blood in his stool. He had ongoing sore throat for more than 2 weeks stated he tested positive for strep and was treated with antibiotics if finish the course however still had continued pain and difficulty to swallow subsequently a day prior to blood in his bowel movement and hence presented to the ER. He COVID flu and RSV. He reported on and off fever Oral thrush was noted and was started on nystatin. Immunocompromised state Also noted to have new thrombocytopenia GI was consulted and underwent EGD and colonoscopy since the apps ulcers ranging size 15 mm to 20 mm visualized mid esophagus. Multiple cysts were taken a large hiatal hernia was found at GE junction into mild gastritis was seen stomach. Gastritis at erythematous and edematous changes. Multiple biopsies were taken. Colonoscopy: Multiple deep ulcers decent size is has largest 3 cm were visualized mostly in the right colon. The ulcers were not bleeding. Multiple biopsies were taken. A few diverticula were noted in the left colon without any active bleeding. Small size internal hemorrhoids were also noted in rectum. ENT was consulted for oral thrush CT abdomen pelvis showed renal lymphadenopathy possibly consistent with lymphoma. Splenomegaly hiatal hernia nephrolithiasis. For possibility of lymphoma CT chest was done which showed bilateral axillary lymphadenopathy. LDS was mildly elevated Vitamin B12 was high however MMA was also elevated iron studies Platelet antibody was weakly positive Platelet transfusion was done for planned surgical procedure. However remains low Upon recommendation Oncology on axillary lymph node biopsies obtained which showed granulomatous lymphadenitis. An excisional biopsy was recommended which was done on 12/18/2023 pathology showed nonspecific adenitis Angiotensin-converting enzyme level is elevated pointing to the diagnosis of possible sarcoidosis next with weakly positive hit antibody and persistent thrombocytopenia a possibility ITP and hence a trial of steroid treatment will be done. This was discussed with oncology team. He still has intermittent fever without any obvious source of infection Esophageal ulcer was tested positive for p16 immuno marker. On PPI and Carafate Ascending colon Ulcer tested positive for EBV suggestive of EBV related infection Is biologics and methotrexate will be held HIV and CMV serologies were negative Mild hyponatremia noted Rectal bleeding has now resolved in H&H remained stable. Coronary artery disease Hypertension Hyperlipidemia Rheumatoid arthritis on biologics and methotrexate
[2023-12-20] MEDS: methylPREDNISolone SOD SUCC 125 MG VIAL IV PUSH (16:13)
[2023-12-20] MEDS: SIMVASTATIN 20 MG TABLET 40 MG PO (16:18)
[2023-12-20 20:00] VITALS: O2SAT 92
[2023-12-20 21:40] VITALS: BP 99/57; PULSE 72; RESP 18; TEMP 36.5; O2SAT 92
[2023-12-21] MEDS: MAGNES & ALUM HYD/SIMETH/DIPHENHYD/LIDOCAINE 119 ML MOUTHWASH BY MOUTH ×5 (04:59→22:04)
[2023-12-21] MEDS: methylPREDNISolone SOD SUCC 125 MG VIAL IV PUSH ×2 (04:59→15:46)
[2023-12-21] MEDS: SUCRALFATE SUSP 100 MG/ML 10 ML UDC 1000 MG PO ×4 (04:59→22:05)
[2023-12-21 05:42] LABS: Basophils Percent Auto 0.4 % (0.2-1.2); Hematocrit 34.3 % (42.0-52.0); Immature Platelet Fraction Pct 20.3 % (0.9-11.2); Lymphocytes Absolute Auto 0.93 K/mm3 (0.9-3.2); Lymphocytes Percent Auto 38.3 % (18.3-44.2); Mean Corpuscular HGB Conc 32.1 g/dl (32-36); Mean Corpuscular Volume 96.6 fl (80-100); Monocytes Absolute Auto 0.1 K/mm3 (0.1-0.6); Monocytes Percent Auto 2.1 % (2.6-8.5); Neutrophils Absolute Auto 1.4 K/mm3 (1.3-6.7); Neutrophils Percent Auto 59.2 % (45.5-73.1); Platelet Count Result 64 k/mm3 (150-375); Red Blood Count 3.55 M/mm3 (4.6-6.20); Red Cell Distribution Width 15.1 % (11.5-14.5); White Blood Count 2.4 K/mm3 (4.5-10.0)
[2023-12-21 05:49] LABS: Alanine Aminotransferase 63 U/L (6-50); Albumin Level 3.2 g/dL (3.5-5.1); Alkaline Phosphatase 189 U/L (38-126); Anion Gap 5 mmol/L (4-12); Aspartate Amino Transferase 125 U/L (17-59); Bilirubin,Total 0.8 mg/dL (0.2-1.3); Blood Urea Nitrogen 21 mg/dL (9-20); Calcium 9.9 mg/dL (8.4-10.2); Carbon Dioxide 27 mmol/L (22-30); Chloride 99 mmol/L (98-107); Estimated CRCL calculation 61 ml/min; Estimated Glomerular Filt Rate > 60; Glucose 188 mg/dL (65-110); Magnesium 2.3 mg/dL (1.6-2.3); Potassium 3.7 mmol/L (3.4-5.0); Sodium 131 mmol/L (137-145)
[2023-12-21 06:01] VITALS: BP 116/64; PULSE 81; RESP 18; TEMP 37; O2SAT 95
[2023-12-21 06:21] LABS: Hypochromasia 1+; Platelet Estimate Decreased (Adequate); Schistocytes None Seen
[2023-12-21] MEDS: PANTOPRAZOLE 40 MG TABLET PO ×2 (09:00→22:06)
[2023-12-21] MEDS: METOPROLOL TARTRATE 25 MG TABLET PO ×2 (09:00→22:05)
[2023-12-21] MEDS: NYSTATIN 100,000 UNITS/ML SUSP 5 ML ORAL.SUSP PO ×4 (09:00→22:05)
[2023-12-21] MEDS: CLOTRIMAZOLE 10 MG TROC PO ×5 (09:00→22:06)
[2023-12-21] MEDS: FLUCONAZOLE 100 MG TABLET PO (09:04)
--- NOTE | 2023-12-21 13:38 | PC.NURSE ---
When rounding on this patient, they noted that their ear felt as if it were full of water. This nurse relayed this message to Dr. Burch. No new orders at this time.
--- NOTE | 2023-12-21 14:05 | PM.IMPN ---
Progress Note: A&P Assessment and Plan (1) Thrombocytopenia: Code(s): D69.6 - Thrombocytopenia, unspecified Status: Acute (2) Lymphadenopathy: Code(s): R59.1 - Generalized enlarged lymph nodes Status: Acute (3) Esophageal ulcer: Code(s): K22.10 - Ulcer of esophagus without bleeding Status: Acute (4) Hyponatremia: Code(s): E87.1 - Hypo-osmolality and hyponatremia Status: Acute (5) Thrush: Code(s): B37.0 - Candidal stomatitis Status: Acute (6) Colon ulcer: Code(s): K63.3 - Ulcer of intestine Status: Acute (7) Rectal bleed: Code(s): K62.5 - Hemorrhage of anus and rectum Status: Acute (8) Immunocompromised: Code(s): D84.9 - Immunodeficiency, unspecified Status: Chronic (9) Rheumatoid arthritis: Code(s): M06.9 - Rheumatoid arthritis, unspecified Status: Acute (10) HLD (hyperlipidemia): Code(s): E78.5 - Hyperlipidemia, unspecified Status: Chronic (11) CAD (coronary artery disease): Code(s): I25.10 - Atherosclerotic heart disease of [place] coronary artery without angina pectoris Status: Chronic Plan This is a 68-year-old male with past medical history of coronary artery disease GERD rheumatoid up some biologics and methotrexate history of [place] with stent placement presented to the ER with blood in his stool. He had ongoing sore throat for more than 2 weeks stated he tested positive for strep and was treated with antibiotics if finish the course however still had continued pain and difficulty to swallow subsequently a day prior to blood in his bowel movement and hence presented to the ER. He COVID flu and RSV. He reported on and off fever Oral thrush was noted and was started on nystatin. Immunocompromised state Also noted to have new thrombocytopenia GI was consulted and underwent EGD and colonoscopy since the apps ulcers ranging size 15 mm to 20 mm visualized mid esophagus. Multiple cysts were taken a large hiatal hernia was found at GE junction into mild gastritis was seen stomach. Gastritis at erythematous and edematous changes. Multiple biopsies were taken. Colonoscopy: Multiple deep ulcers decent size is has largest 3 cm were visualized mostly in the right colon. The ulcers were not bleeding. Multiple biopsies were taken. A few diverticula were noted in the left colon without any active bleeding. Small size internal hemorrhoids were also noted in rectum. ENT was consulted for oral thrush CT abdomen pelvis showed renal lymphadenopathy possibly consistent with lymphoma. Splenomegaly hiatal hernia nephrolithiasis. For possibility of lymphoma CT chest was done which showed bilateral axillary lymphadenopathy. LDS was mildly elevated Vitamin B12 was high however MMA was also elevated iron studies Platelet antibody was weakly positive Platelet transfusion was done for planned surgical procedure. However remains low Upon recommendation Oncology on axillary lymph node biopsies obtained which showed granulomatous lymphadenitis. An excisional biopsy was recommended which was done on 12/18/2023 pathology showed nonspecific adenitis Angiotensin-converting enzyme level is elevated pointing to the diagnosis of possible sarcoidosis next with weakly positive hit antibody and persistent thrombocytopenia a possibility ITP and hence a trial of steroid treatment will be done. This was discussed with oncology team. He still has intermittent fever without any obvious source of infection Esophageal ulcer was tested positive for p16 immuno marker. On PPI and Carafate Ascending colon Ulcer tested positive for EBV suggestive of EBV related infection his biologics and methotrexate will be held HIV and CMV serologies were negative Mild hyponatremia noted Rectal bleeding has now resolved in H&H remained stable. Coronary artery disease Hypertension Hyperlipidemia Rheumatoid arthritis on biologics and methotrexat
[2023-12-21 14:10] VITALS: BP 100/66; PULSE 68; RESP 14; TEMP 36.1; O2SAT 96
[2023-12-21] MEDS: SIMVASTATIN 20 MG TABLET 40 MG PO (15:49)
[2023-12-21 17:03] LABS: EBV Nuclear Ab Interpretation Past; EBV Virus Capsid Ag IgG Ab >750.00 U/mL (<18.00); EBV Virus Capsid Ag IgM Ab <36.00 U/mL (<36.00)
[2023-12-21 20:00] VITALS: O2SAT 94
[2023-12-21 21:22] VITALS: BP 104/64; PULSE 68; RESP 20; TEMP 36.4; O2SAT 94
[2023-12-22] MEDS: MAGNES & ALUM HYD/SIMETH/DIPHENHYD/LIDOCAINE 119 ML MOUTHWASH BY MOUTH ×5 (05:14→21:55)
[2023-12-22] MEDS: SUCRALFATE SUSP 100 MG/ML 10 ML UDC 1000 MG PO ×4 (05:15→21:55)
[2023-12-22] MEDS: methylPREDNISolone SOD SUCC 125 MG VIAL IV PUSH (05:15)
[2023-12-22 06:00] VITALS: BP 104/64; PULSE 67; RESP 20; TEMP 36.8; O2SAT 97
[2023-12-22 06:23] LABS: Basophils Percent Auto 0.2 % (0.2-1.2); Hematocrit 31.6 % (42.0-52.0); Hemoglobin 10.4 g/dL (14.0-18.0); Immature Granulocyte Absolute 0.05 K/mm3 (0.00-0.031); Immature Granulocyte Percent A 0.5 % (0-0.5); Immature Platelet Fraction Pct 17.6 % (0.9-11.2); Lymphocytes Absolute Auto 1.06 K/mm3 (0.9-3.2); Lymphocytes Percent Auto 9.9 % (18.3-44.2); Mean Corpuscular HGB Conc 32.9 g/dl (32-36); Mean Corpuscular Hemoglobin 31.5 pg (26-34); Mean Corpuscular Volume 95.8 fl (80-100); Monocytes Absolute Auto 0.7 K/mm3 (0.1-0.6); Monocytes Percent Auto 6.6 % (2.6-8.5); Neutrophils Absolute Auto 8.9 K/mm3 (1.3-6.7); Neutrophils Percent Auto 82.8 % (45.5-73.1); Platelet Count Result 75 k/mm3 (150-375); Red Cell Distribution Width 15.4 % (11.5-14.5); White Blood Count 10.7 K/mm3 (4.5-10.0)
[2023-12-22 06:35] LABS: Alanine Aminotransferase 75 U/L (6-50); Albumin Level 3.1 g/dL (3.5-5.1); Alkaline Phosphatase 179 U/L (38-126); Anion Gap 6 mmol/L (4-12); Aspartate Amino Transferase 151 U/L (17-59); Bilirubin,Total 0.7 mg/dL (0.2-1.3); Blood Urea Nitrogen 28 mg/dL (9-20); Carbon Dioxide 27 mmol/L (22-30); Chloride 99 mmol/L (98-107); Estimated CRCL calculation 67 ml/min; Estimated Glomerular Filt Rate > 60; Glucose 138 mg/dL (65-110); Magnesium 2.4 mg/dL (1.6-2.3); Potassium 3.8 mmol/L (3.4-5.0); Sodium 132 mmol/L (137-145)
[2023-12-22 07:08] LABS: Platelet Estimate Decreased (Adequate); Schistocytes None Seen
[2023-12-22] MEDS: CLOTRIMAZOLE 10 MG TROC PO ×5 (09:26→21:55)
[2023-12-22] MEDS: FLUCONAZOLE 100 MG TABLET PO (09:26)
[2023-12-22] MEDS: NYSTATIN 100,000 UNITS/ML SUSP 5 ML ORAL.SUSP PO ×4 (09:26→21:55)
[2023-12-22] MEDS: METOPROLOL TARTRATE 25 MG TABLET PO ×2 (09:26→21:56)
[2023-12-22] MEDS: PANTOPRAZOLE 40 MG TABLET PO ×2 (09:26→21:56)
--- NOTE | 2023-12-22 13:55 | P.PNIM_ITS ---
Progress Note: A&P Assessment and Plan (1) Thrombocytopenia: Code(s): D69.6 - Thrombocytopenia, unspecified Status: Acute (2) Lymphadenopathy: Code(s): R59.1 - Generalized enlarged lymph nodes Status: Acute (3) Esophageal ulcer: Code(s): K22.10 - Ulcer of esophagus without bleeding Status: Acute (4) Hyponatremia: Code(s): E87.1 - Hypo-osmolality and hyponatremia Status: Acute (5) Thrush: Code(s): B37.0 - Candidal stomatitis Status: Acute (6) Colon ulcer: Code(s): K63.3 - Ulcer of intestine Status: Acute (7) Rectal bleed: Code(s): K62.5 - Hemorrhage of anus and rectum Status: Acute (8) Immunocompromised: Code(s): D84.9 - Immunodeficiency, unspecified Status: Chronic (9) Rheumatoid arthritis: Code(s): M06.9 - Rheumatoid arthritis, unspecified Status: Acute (10) HLD (hyperlipidemia): Code(s): E78.5 - Hyperlipidemia, unspecified Status: Chronic (11) CAD (coronary artery disease): Code(s): I25.10 - Atherosclerotic heart disease of [place] coronary artery without angina pectoris Status: Chronic Plan This is a 68-year-old male with past medical history of coronary artery disease GERD rheumatoid up some biologics and methotrexate history of [place] with stent placement presented to the ER with blood in his stool. He had ongoing sore throat for more than 2 weeks stated he tested positive for strep and was treated with antibiotics if finish the course however still had continued pain and difficulty to swallow subsequently a day prior to blood in his bowel movement and hence presented to the ER. He COVID flu and RSV. He reported on and off fever Oral thrush was noted and was started on nystatin. Immunocompromised state Also noted to have new thrombocytopenia GI was consulted and underwent EGD and colonoscopy since the apps ulcers ranging size 15 mm to 20 mm visualized mid esophagus. Multiple cysts were taken a large hiatal hernia was found at GE junction into mild gastritis was seen stomach. Gastritis at erythematous and edematous changes. Multiple biopsies were taken. Colonoscopy: Multiple deep ulcers decent size is has largest 3 cm were visualized mostly in the right colon. The ulcers were not bleeding. Multiple biopsies were taken. A few diverticula were noted in the left colon without any active bleeding. Small size internal hemorrhoids were also noted in rectum. ENT was consulted for oral thrush CT abdomen pelvis showed renal lymphadenopathy possibly consistent with lymphoma. Splenomegaly hiatal hernia nephrolithiasis. For possibility of lymphoma CT chest was done which showed bilateral axillary lymphadenopathy. LDS was mildly elevated Vitamin B12 was high however MMA was also elevated iron studies Platelet antibody was weakly positive Platelet transfusion was done for planned surgical procedure. However remains low Upon recommendation Oncology on axillary lymph node biopsies obtained which showed granulomatous lymphadenitis. An excisional biopsy was recommended which was done on 12/18/2023 pathology showed nonspecific adenitis Angiotensin-converting enzyme level is elevated pointing to the diagnosis of possible sarcoidosis next with weakly positive hit antibody and persistent thrombocytopenia a possibility ITP and hence a trial of steroid treatment will be done. This was discussed with oncology team. He still has intermittent fever without any obvious source of infection Esophageal ulcer was tested positive for p16 immuno marker. On PPI and Carafate Ascending colon Ulcer hung
[2023-12-22 14:00] VITALS: BP 105/66; PULSE 67; RESP 16; TEMP 36.3; O2SAT 96
[2023-12-22] MEDS: predniSONE 20 MG TABLET 40 MG PO (15:59)
[2023-12-22] MEDS: SIMVASTATIN 20 MG TABLET 40 MG PO (16:00)
[2023-12-22 20:00] VITALS: O2SAT 97
[2023-12-22 21:12] VITALS: BP 106/77; PULSE 66; RESP 18; TEMP 36.5; O2SAT 97
[2023-12-22] MEDS: FLUTICASONE PROPIONATE 0.05% NA SPR 16 GM BTL (*BKC) 1 SPRAY NASAL (21:55)
[2023-12-23] MEDS: MAGNES & ALUM HYD/SIMETH/DIPHENHYD/LIDOCAINE 119 ML MOUTHWASH BY MOUTH ×3 (05:42→12:10)
[2023-12-23] MEDS: SUCRALFATE SUSP 100 MG/ML 10 ML UDC 1000 MG PO ×2 (05:43→12:10)
[2023-12-23 05:57] VITALS: BP 114/70; PULSE 62; RESP 18; TEMP 36.3; O2SAT 95
[2023-12-23 06:35] LABS: Basophils Percent Auto 0.1 % (0.2-1.2); Hematocrit 31.2 % (42.0-52.0); Hemoglobin 9.9 g/dL (14.0-18.0); Immature Granulocyte Absolute 0.07 K/mm3 (0.00-0.031); Immature Granulocyte Percent A 0.7 % (0-0.5); Immature Platelet Fraction Pct 15.7 % (0.9-11.2); Lymphocytes Absolute Auto 0.84 K/mm3 (0.9-3.2); Mean Corpuscular HGB Conc 31.7 g/dl (32-36); Mean Corpuscular Hemoglobin 30.9 pg (26-34); Mean Corpuscular Volume 97.5 fl (80-100); Mean Platelet Volume 14.2 fl (7.4-10.4); Monocytes Absolute Auto 0.7 K/mm3 (0.1-0.6); Monocytes Percent Auto 6.7 % (2.6-8.5); Neutrophils Absolute Auto 8.9 K/mm3 (1.3-6.7); Neutrophils Percent Auto 84.5 % (45.5-73.1); Platelet Count Result 73 k/mm3 (150-375); Red Cell Distribution Width 15.4 % (11.5-14.5); White Blood Count 10.5 K/mm3 (4.5-10.0)
[2023-12-23 06:50] LABS: Alanine Aminotransferase 95 U/L (6-50); Albumin Level 2.9 g/dL (3.5-5.1); Alkaline Phosphatase 172 U/L (38-126); Anion Gap 3 mmol/L (4-12); Aspartate Amino Transferase 173 U/L (17-59); Bilirubin,Total 0.6 mg/dL (0.2-1.3); Blood Urea Nitrogen 27 mg/dL (9-20); Calcium 9.6 mg/dL (8.4-10.2); Carbon Dioxide 29 mmol/L (22-30); Chloride 102 mmol/L (98-107); Estimated CRCL calculation 74 ml/min; Estimated Glomerular Filt Rate > 60; Glucose 160 mg/dL (65-110); Magnesium 2.4 mg/dL (1.6-2.3); Potassium 3.3 mmol/L (3.4-5.0); Sodium 134 mmol/L (137-145)
[2023-12-23] MEDS: predniSONE 20 MG TABLET 40 MG PO (09:40)
[2023-12-23] MEDS: CLOTRIMAZOLE 10 MG TROC PO ×2 (09:41→12:10)
[2023-12-23] MEDS: PANTOPRAZOLE 40 MG TABLET PO (09:41)
[2023-12-23] MEDS: FLUCONAZOLE 100 MG TABLET PO (09:41)
[2023-12-23] MEDS: POTASSIUM CHLORIDE 20 MEQ ER TABLET 40 MEQ PO (09:41)
[2023-12-23] MEDS: NYSTATIN 100,000 UNITS/ML SUSP 5 ML ORAL.SUSP PO ×2 (09:42→12:10)
[2023-12-23 09:43] VITALS: PULSE 60
[2023-12-23] MEDS: METOPROLOL TARTRATE 25 MG TABLET PO (09:43)
[2023-12-23] MEDS: FLUTICASONE PROPIONATE 0.05% NA SPR 16 GM BTL (*BKC) 1 SPRAY NASAL (09:44)
--- NOTE | 2023-12-23 11:39 | PCNFU ---
Nutrition Follow-Up Complete: Goal: Adequate intake over 50% of meals Pt is meeting goal. Continue with same goal Pt current nutrition is Regular, Ensure compact TID. Nutrition recommendation: continue with current plan of care Last recorded weight is 77 kg. Bowel Motility: +BM 12/22 Labs Reviewed:Hgb:9.9, HCT:31.2, Alb:2.9, NA:134, K:3.3, BUN:27, Glu:160 Meds Noted: protonix, zofran, nystatin, prednisone Skin: WNL Additional Notes: Pt continues on a regular diet, eating well, 75-100% intake. Reports doing better, potential discharge this afternoon. Monitor diet orders, intake, wt, labs. Follow up in 7 days.
--- NOTE | 2023-12-23 12:52 | PM.DS ---
DS: Admitting Diagnosis Discharge Date 12/23/2019 Admitting Diagnosis Rectal bleed DS: Discharge Diagnosis Discharge Diagnosis (1) Thrombocytopenia: Code(s): D69.6 - Thrombocytopenia, unspecified Status: Acute (2) Lymphadenopathy: Code(s): R59.1 - Generalized enlarged lymph nodes Status: Acute (3) Esophageal ulcer: Code(s): K22.10 - Ulcer of esophagus without bleeding Status: Acute (4) Hyponatremia: Code(s): E87.1 - Hypo-osmolality and hyponatremia Status: Acute (5) Thrush: Code(s): B37.0 - Candidal stomatitis Status: Acute (6) Colon ulcer: Code(s): K63.3 - Ulcer of intestine Status: Acute (7) Rectal bleed: Code(s): K62.5 - Hemorrhage of anus and rectum Status: Acute (8) Immunocompromised: Code(s): D84.9 - Immunodeficiency, unspecified Status: Chronic (9) Rheumatoid arthritis: Code(s): M06.9 - Rheumatoid arthritis, unspecified Status: Acute (10) HLD (hyperlipidemia): Code(s): E78.5 - Hyperlipidemia, unspecified Status: Chronic (11) CAD (coronary artery disease): Code(s): I25.10 - Atherosclerotic heart disease of [place] coronary artery without angina pectoris Status: Chronic DS: Summary Hospital Course Hospital Course: This is a 68-year-old male with past medical history of coronary artery disease GERD rheumatoid arthritis treated with biologics and methotrexate history of [place] with stent placement presented to the ER with blood in his stool.? He had ongoing sore throat for more than 2 weeks stated he tested positive for strep and was treated with antibiotics and finished the course however still had continued pain and difficulty to swallow. Subsequently a day prior to admission, he noted blood in his bowel movement and hence presented to the ER. He was also noted to be thrombocytopenic. Negative for COVID flu and RSV.? He reported on and off fever throughout this course Oral thrush was noted on evaluation and was started on nystatin as well as fluconazole.? He has Immunocompromised state GI was consulted and underwent EGD and colonoscopy since the apps ulcers ranging size 15 mm to 20 mm visualized mid esophagus.? Multiple cysts were taken a large hiatal hernia was found at GE junction into mild gastritis was seen stomach.? Gastritis at erythematous and edematous changes.? Multiple biopsies were taken.? Colonoscopy: Multiple deep ulcers decent size is has largest 3 cm were visualized mostly in the right colon.? The ulcers were not bleeding.? Multiple biopsies were taken.? A few diverticula were noted in the left colon without any active bleeding.? Small size internal hemorrhoids were also noted in rectum.? ENT was consulted for oral thrush CT abdomen pelvis showed renal lymphadenopathy possibly consistent with lymphoma.? Splenomegaly hiatal hernia nephrolithiasis. For possibility of lymphoma CT chest was done which showed bilateral axillary lymphadenopathy.? LDH was mildly elevated Vitamin B12 was high however MMA was also elevated iron studies negative for iron deficient Platelet antibody was weakly positive Platelet transfusion was done for planned surgical procedure.? However 8 remained low Needle biopsy of axillary lymph node was performed which showed granulomatous lymphadenitis.? Subsequently An excisional biopsy was recommended which was done on 12/18/2023 pathology showed nonspecific adenitis Angiotensin-converting enzyme level is elevated pointing to the diagnosis of possible sarcoidosis along with with weakly positive hit antibody and persistent thrombocytopenia a possibility of ITP and hence a trial of steroid treatment was discussed and was initiated. His fever resolved after along with improvement platelet count. Steroid will be tapered slowly as an outpatient basis and followed up by fill plant operator as an outpatient basis for possible need for further workup. Esophageal ulcer was tested po
--- NOTE | 2023-12-26 14:21 | PC.NURSE ---
Pathology of right axilla shows non-specific findings.
== END 2023-12-23 13:25 | disposition home or self-care (01) | DRG 803 ==
LOC: ANHED 02:50 → ANH3MEDSUR 05:16
PROVIDERS: Internal Medicine Gastroenterology; Internal Medicine Hematology & Oncology; Nurse Practitioner; Nurse Practitioner Family; Student in an Organized Health Care Education/Training Program; Surgery; Admitting Provider Internal Medicine; Emergency Provider Emergency Medicine; PCP Family Medicine; Visit Provider Internal Medicine
PROC: 0DJ08ZZ Inspection of Upper Intestinal Tract, Via Natural or Artificial Opening Endoscopic (ICD-10-PCS; CPT 43235; principal; 2023-12-10 15:30)
PROC: 07B50ZX Excision of Right Axillary Lymphatic, Open Approach, Diagnostic (ICD-10-PCS; principal; 2023-12-18 13:00)
DX: D69.6 Thrombocytopenia, unspecified (principal); B37.0 Candidal stomatitis; D84.821 Immunodeficiency due to drugs; K22.10 Ulcer of esophagus without bleeding; K63.3 Ulcer of intestine; E87.1 Hypo-osmolality and hyponatremia; B27.00 Gammaherpesviral mononucleosis without complication; R59.1 Generalized enlarged lymph nodes; I25.10 Atherosclerotic heart disease of native coronary artery without angina pectoris; K29.70 Gastritis, unspecified, without bleeding; K21.9 Gastro-esophageal reflux disease without esophagitis; K64.8 Other hemorrhoids; K44.9 Diaphragmatic hernia without obstruction or gangrene; K57.30 Diverticulosis of large intestine without perforation or abscess without bleeding; M06.9 Rheumatoid arthritis, unspecified; E78.5 Hyperlipidemia, unspecified; H66.92 Otitis media, unspecified, left ear; F17.210 Nicotine dependence, cigarettes, uncomplicated; I25.2 Old myocardial infarction; Z20.822 Contact with and (suspected) exposure to COVID-19; Z79.631 Long term (current) use of antimetabolite agent; Z79.82 Long term (current) use of aspirin; Z95.5 Presence of coronary angioplasty implant and graft; Z80.0 Family history of malignant neoplasm of digestive organs
CPT/HCPCS: 36415; 36430; 38505; 70491; 71045; 71046; 71260; 74176; 76942; 80048; 80053; 81001; 82164; 82533; 82570; 82607; 82728; 82746; 82784; 83540; 83550; 83605; 83615; 83735; 83921; 83930; 83935; 84238; 84300; 84439; 84443; 84480; 84540; 85025; 85027; 85055; 85610; 85652; 85730; 86022; 86023; 86140; 86308; 86480; 86645; 86664; 86665; 86703; 86850; 86900; 86901; 87040; 87045; 87070; 87103; 87427; 87449; 87497; 87637; 87651; 88184; 88185; 88305; 88342; 99284; 99285; P9036; A9270; C9113; G0432; J0690; J0696; J1170; J1756; J2250; J2270; J2405; J2543; J2704; J2919; J3010; J7030; J7050; J7120; J7512; P9034; Q9967

== ENCOUNTER 2024-01-01 15:53 | Outpatient (CLI) | payer MEDICARE, SELFPAY ==
[2024-01-01 16:46] LABS: Hematocrit 36.2 % (42.0-52.0); Hemoglobin 11.7 g/dL (14.0-18.0); Immature Platelet Fraction Pct 11.6 % (0.9-11.2); Mean Corpuscular HGB Conc 32.3 g/dl (32-36); Mean Corpuscular Hemoglobin 32.1 pg (26-34); Mean Corpuscular Volume 99.2 fl (80-100); Mean Platelet Volume 12.8 fl (7.4-10.4); Platelet Count Result 37 k/mm3 (150-375); Red Blood Count 3.65 M/mm3 (4.6-6.20); Red Cell Distribution Width 16.6 % (11.5-14.5); White Blood Count 9.3 K/mm3 (4.5-10.0)
[2024-01-01 17:33] LABS: Band Neutrophils Percent 2 % (0-6); Lymphocytes Absolute Manual 1.95 K/mm3 (1.1-4.5); Monocytes Absolute Manual 0.65 K/mm3 (0.1-0.90); Monocytes Percent Manual 7 % (3-9); Neutrophils Absolute Manual 6.69 K/mm3 (1.3-6.7); Neutrophils Percent Manual 70 % (46-73); Platelet Estimate Decreased (Adequate); Schistocytes None Seen; Total Cells Counted 100
[2024-01-01 17:34] LABS: Anisocytosis 2+
== END 2024-01-01 15:54 | disposition home or self-care (01) ==
LOC: ANHLAB 15:55
PROVIDERS: PCP Family Medicine; Visit Provider Family Medicine
DX: C44.92 Squamous cell carcinoma of skin, unspecified (principal); D69.6 Thrombocytopenia, unspecified
CPT/HCPCS: 36415; 85025; 85055

== ENCOUNTER 2024-01-08 14:23 | Outpatient (CLI) | payer MEDICARE, SELFPAY ==
[2024-01-08 14:39] LABS: Basophils Percent Auto 0.2 % (0.2-1.2); Eosinophils Percent Auto 0.1 % (0-4.4); Hematocrit 40.6 % (42.0-52.0); Hemoglobin 13.1 g/dL (14.0-18.0); Immature Granulocyte Percent A 1.1 % (0-0.5); Lymphocytes Absolute Auto 1.76 K/mm3 (0.9-3.2); Lymphocytes Percent Auto 18.6 % (18.3-44.2); Mean Corpuscular HGB Conc 32.3 g/dl (32-36); Mean Corpuscular Volume 99.3 fl (80-100); Monocytes Absolute Auto 0.8 K/mm3 (0.1-0.6); Monocytes Percent Auto 8.9 % (2.6-8.5); Neutrophils Absolute Auto 6.7 K/mm3 (1.3-6.7); Neutrophils Percent Auto 71.1 % (45.5-73.1); Platelet Count Result 40 k/mm3 (150-375); Red Blood Count 4.09 M/mm3 (4.6-6.20); Red Cell Distribution Width 16.6 % (11.5-14.5); White Blood Count 9.4 K/mm3 (4.5-10.0)
[2024-01-08 15:26] LABS: Alanine Aminotransferase 92 U/L (6-50); Albumin Level 3.3 g/dL (3.5-5.1); Alkaline Phosphatase 141 U/L (38-126); Anion Gap 4 mmol/L (4-12); Aspartate Amino Transferase 39 U/L (17-59); Bilirubin,Total 0.7 mg/dL (0.2-1.3); Blood Urea Nitrogen 31 mg/dL (9-20); Carbon Dioxide 26 mmol/L (22-30); Chloride 107 mmol/L (98-107); Estimated Glomerular Filt Rate > 60; Glucose 158 mg/dL (65-110); Potassium 3.8 mmol/L (3.4-5.0); Sodium 137 mmol/L (137-145)
== END 2024-01-08 14:24 | disposition home or self-care (01) ==
PROVIDERS: PCP Family Medicine; Visit Provider Internal Medicine Hematology & Oncology
DX: C85.90 Non-Hodgkin lymphoma, unspecified, unspecified site (principal)
CPT/HCPCS: 36415; 80053; 85025; 85055

== ENCOUNTER 2024-01-21 11:54 | Outpatient (CLI) | payer MEDICARE, SELFPAY ==
--- NOTE | ~2024-01-21 | PE_ITS ---
EXAMINATION: PET skull to mid thigh DATE: 01/21/2024 14:46 INDICATION: Non-Hodgkin's lymphoma. TECHNIQUE: Blood glucose level was 98 mg/dL. 11.951 mCi of 18-fluorodeoxyglucose (18-FDG) was adminis tered i.v. Low dose computed tomography (CT) images were acquired from the base of the brain to the p roximal thighs for attenuation correction and anatomic localization. Automated exposure control was e mployed. Dose-length product (DLP) was 669 mGy-cm. Positron emission tomography (PET) images were acq uired in the same distribution. COMPARISON: CT abdomen and pelvis 12/10/2023, chest CT 12/11/2022 FINDINGS: Head/neck: There are no pathologically enlarged lymph nodes. Chest: There is mild emphysema. There is mild atelectasis bilaterally. No pleural effusion. There is a large sliding hiatal hernia. The heart size is normal. There are coronary artery calcifications. No pericardial effusion. There is a 3.2 x 2.1 cm mass anterior to the right shoulder muscles with maxim um SUV of 2.9, likely a hematoma from recent lymph node resection. There is a 10 x 16 mm right paratr acheal lymph node without change in size from 12/11/22 with maximum SUV of 2.5, likely reactive. Abdomen/pelvis/proximal thighs: The liver, gallbladder, spleen, pancreas, and adrenal glands are norm al. There is a 2.1 cm cyst in right kidney. There are 2 stones in left kidney measuring up to 4 mm. T here is calcified atherosclerosis of the aorta and many of the other arteries. Stool distends the rec andrew. There is diverticulosis of the colon without evidence of diverticulitis. There are no pathologic ally enlarged lymph nodes. There is no free intraperitoneal fluid. There is no osseous malignancy. IMPRESSION: 1. No specific evidence of lymphoma. Reviewed, dictated and finalized at location A.
[2024-01-21 12:11] LABS: Glucose Point of Care 98 mg/dl (65-105)
== END 2024-01-21 11:55 | disposition home or self-care (01) ==
LOC: ANHIMG 11:55
PROVIDERS: PCP Family Medicine; Visit Provider Internal Medicine Hematology & Oncology
DX: C85.90 Non-Hodgkin lymphoma, unspecified, unspecified site (principal)
CPT/HCPCS: 78815; A9552

== ENCOUNTER 2024-01-28 10:48 | Outpatient (CLI) | payer MEDICARE, SELFPAY ==
[2024-01-28 11:03] LABS: Basophils Percent Auto 0.8 % (0.2-1.2); Eosinophils Percent Auto 0.4 % (0-4.4); Hematocrit 43.3 % (42.0-52.0); Hemoglobin 13.7 g/dL (14.0-18.0); Immature Granulocyte Absolute 0.08 K/mm3 (0.00-0.031); Immature Granulocyte Percent A 1.6 % (0-0.5); Lymphocytes Absolute Auto 1.45 K/mm3 (0.9-3.2); Lymphocytes Percent Auto 28.7 % (18.3-44.2); Mean Corpuscular HGB Conc 31.6 g/dl (32-36); Mean Corpuscular Hemoglobin 30.3 pg (26-34); Mean Corpuscular Volume 95.8 fl (80-100); Mean Platelet Volume 10.1 fl (7.4-10.4); Monocytes Absolute Auto 0.8 K/mm3 (0.1-0.6); Monocytes Percent Auto 14.8 % (2.6-8.5); Neutrophils Absolute Auto 2.7 K/mm3 (1.3-6.7); Neutrophils Percent Auto 53.7 % (45.5-73.1); Platelet Count Result 190 k/mm3 (150-375); Red Blood Count 4.52 M/mm3 (4.6-6.20); Red Cell Distribution Width 14.4 % (11.5-14.5); White Blood Count 5.1 K/mm3 (4.5-10.0)
[2024-01-28 11:08] LABS: Blood Urea Nitrogen 16 mg/dL (8-26); Carbon Dioxide 29 mmol/L (22-30); Chloride 105 mmol/L (98-109); Estimated Glomerular Filt Rate 60; Glucose 115 mg/dL (70-105); Ionized Calcium (POC) 1.31 mmol/L (1.11-1.31); Potassium 4.2 mmol/L (3.5-4.9); Sodium 139 mmol/L (138-146)
[2024-01-28 16:44] LABS: Alanine Aminotransferase 30 U/L (6-50); Albumin Level 3.5 g/dL (3.5-5.1); Alkaline Phosphatase 140 U/L (38-126); Anion Gap 6 mmol/L (4-12); Aspartate Amino Transferase 35 U/L (17-59); Bilirubin,Total 0.6 mg/dL (0.2-1.3); Blood Urea Nitrogen 16 mg/dL (9-20); Calcium 9.6 mg/dL (8.4-10.2); Carbon Dioxide 25 mmol/L (22-30); Chloride 106 mmol/L (98-107); Estimated Glomerular Filt Rate > 60; Glucose 111 mg/dL (65-110); Potassium 4.2 mmol/L (3.4-5.0); Sodium 137 mmol/L (137-145)
== END 2024-01-28 10:49 | disposition home or self-care (01) ==
LOC: ANHLAB 10:53
PROVIDERS: PCP Family Medicine; Visit Provider Internal Medicine Hematology & Oncology
DX: C85.90 Non-Hodgkin lymphoma, unspecified, unspecified site (principal)
CPT/HCPCS: 36415; 80047; 80053; 85025

== ENCOUNTER 2024-04-10 11:58 | Outpatient (CLI) | payer MEDICARE, SELFPAY ==
[2024-04-10 12:11] LABS: Basophils Absolute Auto 0.1 K/mm3 (0.0-0.1); Eosinophils Absolute Auto 0.3 K/mm3 (0-0.3); Eosinophils Percent Auto 4.2 % (0-4.4); Hematocrit 45.1 % (42.0-52.0); Hemoglobin 14.1 g/dL (14.0-18.0); Immature Granulocyte Absolute 0.01 K/mm3 (0.00-0.031); Immature Granulocyte Percent A 0.1 % (0-0.5); Lymphocytes Absolute Auto 2.77 K/mm3 (0.9-3.2); Mean Corpuscular HGB Conc 31.3 g/dl (32-36); Mean Corpuscular Hemoglobin 27.6 pg (26-34); Mean Corpuscular Volume 88.4 fl (80-100); Monocytes Absolute Auto 1.4 K/mm3 (0.1-0.6); Monocytes Percent Auto 19.5 % (2.6-8.5); Neutrophils Absolute Auto 2.4 K/mm3 (1.3-6.7); Neutrophils Percent Auto 35.2 % (45.5-73.1); Platelet Count Result 182 k/mm3 (150-375); Red Cell Distribution Width 14.3 % (11.5-14.5); White Blood Count 6.9 K/mm3 (4.5-10.0)
[2024-04-10 12:14] LABS: Blood Urea Nitrogen 19 mg/dL (8-26); Carbon Dioxide 25 mmol/L (22-30); Chloride 105 mmol/L (98-109); Estimated Glomerular Filt Rate 46; Glucose 96 mg/dL (70-105); Ionized Calcium (POC) 1.24 mmol/L (1.11-1.31); Potassium 3.9 mmol/L (3.5-4.9); Sodium 140 mmol/L (138-146)
== END 2024-04-10 11:59 | disposition home or self-care (01) ==
LOC: ANHLAB 12:00
PROVIDERS: PCP Family Medicine; Visit Provider Internal Medicine Hematology & Oncology
DX: C85.90 Non-Hodgkin lymphoma, unspecified, unspecified site (principal)
CPT/HCPCS: 36415; 80047; 85025

== ENCOUNTER 2024-10-30 06:46 | Outpatient (CLI) | payer MEDICARE, SELFPAY ==
--- OUTSIDE RECORDS SUMMARY | 2024-10-30 06:50 | XMS_ITS | Clinical Summary ---
Author Organization [facility] Address [address] [place] [address] Care Team Providers Care Time Analysis Clerk Name Role Phone Unavailable Primary Care Provider Unavailabl e Source Comments [facility],non-owned Affiliates and Associated Physician Practices is amultiple site organization consisting of ambulatory clinics and hospital sitesin [place], [place], [place] and [place]. This disclosure is being madepursuant to the Care Everywhere program and may not contain all information available regarding this patient. Last updated 18.[facility] Social History Tobacco Use Types Packs/Day Years Used Date Smoking Tobacco: Never Assessed Sex and Gender Information Value Date Recorded Sex Assigned at Not on file Gender Identity Not on file Sexual Orientation Not on file Plan of Treatment Health Maintenance Due Date Last Done Comments COLOGUARD (AGES 45-75) - COLON CA SCREENING 1954 COLON MONITORING 1954 COLONOSCOPY - COLON CA SCREENING 1954 CT COLONOGRAPHY - COLON CA SCREENING 1954 Colorectal Cancer Screening 1954 FIT - COLON CA SCREENING 1954 FLEX SIG - COLON CA SCREENING 1954 LIPID TESTING 1954 MEDICARE AWV 12 MONTHS 1954 HEPATITIS C SCREENING 07/18/1972 DTAP/TDAP/TD VACCINES (1 - Tdap) 1973 PNEUMOCOCCAL VACCINE 50+ (1 of 1 - PCV) 2004 ZOSTER VACCINE (1 of 2) 2004 COVID-19 VACCINE (4 - 2023- season) 2024 10/05/2021, 12/05/2020, 11/02/2020 INFLUENZA VACCINE (#1) 2024 , 06/09/2019, 05/27/2018, Additional history exists DEPRESSION SCREENING 09/16/2024 Respiratory Syncytial Virus (RSV) Vaccine Pt: or over 60 yrs (1 - 1-dose 75+ series) 2029 HEPATITIS B VACCINE Aged Out No longe r eligible based on patient's age to complete this topic HIB VACCINE Aged Out No longer eligi ble based on patient's age to complete this topic HPV VACCINE Aged Out No longer eligi ble based on patient's age to complete this topic MENINGOCOCCAL (Group B) VACCINE Aged Out No longer eligible based on patient's age to complete this topic MENINGOCOCCAL VACCINE Aged Out No ekaterina cesar eligible based on patient's age to complete this topic
--- OUTSIDE RECORDS SUMMARY | 2024-10-30 06:50 | XMS_ITS | Clinical Summary ---
Author Organization [facility] Address [address] [place] [address] Care Team Providers Care Automat Watcher Name Role Phone Davey Reynolds MD Primary Care Provider [phone] Allergies Active Allergy Reactions Criticality Noted Date Comments Aspirin Swelling Medium 01/08/2024 Around the mouth Nsaids (Non-Steroidal Anti-Inflammatory Drug) Unknown 01/08/2024 Medications finasteride (PROPECIA) 1 mg Tablet Take 1 Tablet by mouth daily. 11/25/2023 Active folic acid (FOLVITE) 1 mg tablet Take 1 mg by mouth daily. 09/06/2023 Active metoprolol tartrate (LOPRESSOR) 50 mg tablet TAKE 1/2 TABLET BY MOUTH EVERY 12 HOURS 12/04/2023 Active pantoprazole (PROTONIX) 40 mg Tablet, Delayed Release (E.C.) Take 40 mg by mouth every 12 hours. 12/23/2023 Active predniSONE (DELTASONE) 10 mg tablet 12/23/2023 Active simvastatin (ZOCOR) 40 mg tablet Take 1 Tablet by mouth daily. 12/04/2023 Active Active Problems No known active problems Encounters Date Type Department Care Team Description 10/08/2024 External Device Data [facility] ABSTRACTION Provider, Abstract 10/07/2024 External Device Data [facility] ABSTRACTION Provider, Abstract 10/06/2024 External Device Data [facility] ABSTRACTION Provider, Abstract 09/29/2024 External Device Data [facility] ABSTRACTION Provider, Abstract from Last 3 Months Family History Medical History Relation Name Comments Colon Cancer Mother Relation Name Status Comments Father Mother Alive Social History Tobacco Use Types Packs/Day Years Used Date Smoking Tobacco: Some Days Cigarettes Smokeless Tobacco: Never Tobacco Cessation:Ready to Q uit: Not Asked; Counseling Given: Not Answered Alcohol Use Standard Drinks/Week Comments Never 0 (1 standard drink = 0.6 oz pur e alcohol) Sex and Gender Information Value Date Recorded Sex Assigned at Not on file Legal Sex Male 8:36 AM CDT Gender Identity Not on file Sexual Orientation Not on file Last Filed Vital Signs Vital Sign Reading Time Taken Comments Blood Pressure 114/68 04/10/2024 12:12 PM CDT Pulse 80 04/10/2024 12:12 PM CDT Temperature 36.8 C (98.2 F) 04/10/2024 12:12 PM CDT Respiratory Rate 18 04/10/2024 12:12 PM CDT Oxygen Saturation 91% 04/10/2024 12:12 PM CDT Inhaled Oxygen Concentration - - Weight 82.1 kg (181 lb) 04/10/2024 12:12 PM CDT Height 182.9 cm (6') 01/08/2024 1:33 PM CDT Body Mass Index 24.55 01/08/2024 1:33 PM CDT Plan of Treatment Health Maintenance Due Date Last Done Comments FIT-DNA Q 3 years 1999 FIT/FOBT Q 1 year 1999 Flex Sig/CT Colonography Q 5 years 1999 ZOSTER VACCINE (1 of 2) 2004 Abdominal Aortic Aneurysm (A AA) Screening 2019 INFLUENZA VACCINE (#1) 2024 , 05/30/2022, 08/05/2021, Additional history exists COVID-19 Vaccine (2023-2 5 season) 2024 10/05/2021, 12/05/2020, 11/02/2020 DTAP/TDAP/TD VACCINES (2 - T d or Tdap) 05/25/2027 05/25/2017 RSV VACCINE (60+ or ) (1 - 1-dose 75+ series) 2029 COLORECTAL SCREENING 12/09/2033 12/10/2023 Colorectal Cancer Screening 12/09/2033 PNEUMOCOCCAL VACCINE 65+ YEARS Completed 07/13/2020 , 08/22/2015 Insurance MEDICARE PART A AND B [employer] [place] [id number] Care Teams Automat Watcher Relationship Specialty Start Date End Date Davey Reynolds MD [address] [facility] [address] [place] [address] PCP - General Family Practice 01/08/24
--- OUTSIDE RECORDS SUMMARY | 2024-10-30 06:50 | XMS_ITS | Referral Summary ---
Author Organization [facility] Address [address] [place] [address] Care Team Providers Care Director Of Financial Aid Name Role Phone Davey Reynolds MD Primary Care Provider Encounters Date Type Department Care Team Description 10/19/2024 2:00 PM SUBWAY REPAIR SUPERVISOR Infusion [facility] [address] [place] [phone] Rheumatoid arthritis involving multiple sites with positive rheumatoid factor (CMS/HCC) (HCC) (Primary Dx) 08/24/2024 2:15 PM SUBWAY REPAIR SUPERVISOR Infusion [facility] [address] [place] [phone] Rheumatoid arthritis involving multiple sites with positive rheumatoid factor (CMS/HCC) (HCC) (Primary Dx) from Last 3 Months Allergies Active Allergy Reactions Criticality Noted Date Comments Aspirin Swelling Medium Around the mouth Nsaids (Non-Steroidal Anti-Inflammatory Drug) Unknown Medications finasteride (PROPECIA) 1 mg tablet Take one by mouth one time per day 0 0 9 Active metoprolol (LOPRESSOR) 50 mg tablet Take 1/2 by mouth two times per day 0 0 9 Active multivitamin tablet tablet Take one by mouth one time per day 0 0 9 Active simvastatin (ZOCOR) 40 mg tablet Take one by mouth one time per day 0 0 9 Active cetirizine-pseu doephedrine ER (ZyrTEC-D) 5-120 mg per 12 hr tablet take 1 tablet by oral route every 12 hours 0 3 Active aspirin 81 mg tablet take 1 tablet by oral route every day 0 0 9 Active ketoconazole (NIZORAL) 2 % cream 11 9 Active PreviDent 5000 Booster Plus 1.1 % paste BRUSH TEETH 3 TIMES DAILY 0 Active cyclobenzaprine (FLEXERIL) 10 mg tabletIndicatio ns:Muscle Spasm Take 1 tablet (10 mg total) by mouth 2 (two) times a day as needed for muscle spasms 60 tablet 2 3 Active Additional Information Patient not taking.Reported on 11/15/2023 fluticasone propionate (FLONASE) 50 mcg/actuation nasal spray SHAKE LIQUID AND USE 1 SPRAY IN EACH NOSTRIL EVERY 12 HOURS 4 Active nystatin 100,000 unit/mL suspension SHAKE LIQUID AND TAKE 5 ML BY MOUTH FOUR TIMES DAILY [address] (PROTONIX) 40 mg EC tablet Take 1 tablet (40 mg total) by mouth every 12 (twelve) hours 4 Active predniSONE (DELTASONE) 10 mg tablet 4 Active methotrexate 2.5 mg tablet TAKE 10 TABLETS BY MOUTH ONCE EVERY 7 DAYS 128 tablet 4 Active folic acid (FOLVITE) 1 mg tablet TAKE 1 TABLET(1 MG) BY MOUTH DAILY 90 tablet 1 4 Active Active Problems Problem Noted Date Diagnosed Date Primary osteoarthritis involving multiple joints 04/11/2023 Assessment & Plan (12/30/2023 9:07 AM CDT): For additional pain relief, you can add arthritis strength acetaminophen (650 mg in each sustained release tablet) which comes under a variety of name brands but may be dosed at 2 tablets in the morning and 2 tablets in the evening. In your case I recommend limiting total acetaminophen dose of no more than 3000 mg in a 24 hour period unless we discuss further. Please make sure to check any [id number] products you may take as well as any prescription pain relievers that include acetaminophen as you will need to include those doses in the 3000 mg limit of the medication. When taking acetaminophen regularly, I ask that you avoid alcohol or modify to only 1 alcohol drink a few days a week. 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 Offered shoulder IASI but declined. For additional pain relief, you can add arthritis strength acetaminophen (650 mg in each sustained release tablet) which comes under a variety of name brands but may be dosed at 2 tablets in the morning and 2 tablets in the evening. In your case I recommend limiting total acetaminophen dose of no more than 3000 mg in a 24 hour period unless we discuss further. Please make sure to check any kttc-dcw-gnnhfue products you may take as well as any prescription pain relievers that include acetaminophen as you will need to include those doses in the 3000 mg limit of the medication. When taking acetaminophen regularly, I ask that you avoid alcohol or modify to only 1 alcohol drink a few days a week. You can use topical diclofenac gel massaged in to hands and knees three times a day for relief of arthritic joint pain. Voltaren gel is a common brand name but there are certainly other store- brand/generic options. Just make sure that the active ingredient is diclofenac For optimal benefit, avoid washing hands for about 30 minutes after application. Also remember that this topical gel contains a non-steroidal pain reliever and should be kept away from children and pets. Assessment & Plan (04/11/2023 9:36 AM CDT): Suspect cervical facet OA/degenerative changes. Will get plain film imaging today of cervical spine and shoulders. PT referral placed. If not improving, low threshold to send on to pain management for injection. He cannot take oral NSAIDS so will give a slower prednisone taper while we complete evaluation. For additional pain relief, you can add arthritis strength acetaminophen (650 mg in each sustained release tablet) which comes under a variety of name brands but may be dosed at 2 tablets in the morning and 2 tablets in the evening. In your case I recommend limiting total acetaminophen dose of no more than 3000 mg in a 24 hour period unless we discuss further. Please make sure to check any bttx-ocb-xydzmgu products you may take as well as any prescription pain relievers that include acetaminophen as you will need to include those doses in the 3000 mg limit of the medication. When taking acetaminophen regularly, I ask that you avoid alcohol or modify to only 1 alcohol drink a few days a week. Long-term use of high-risk medication 08/18/2021 Assessment & Plan (07/29/2023 2:33 PM SUBWAY REPAIR SUPERVISOR): Long-term use of high-risk medication requiring regular monitoring. Labs ordered, no s/s of med tox or infection. Encouraged to work with PCP to make sure all recommended cancer screens and vaccinations are complete. Avoid live-vaccines unless reviewed with senior java data architect first. High dose flu vaccine administered today. Assessment & Plan (04/11/2023 9:32 AM CDT): Long-term use of high-risk medication requiring regular monitoring. Labs ordered, no s/s of med tox or infection. Encouraged to work with PCP to make sure all recommended cancer screens and vaccinations are complete. Avoid live-vaccines unless reviewed with senior java data architect first. Assessment & Plan (08/18/2021 7:34 AM SUBWAY REPAIR SUPERVISOR): Long-term use of high-risk medication requiring regular monitoring. Labs ordered, no s/s of med tox or infection. Encouraged to work with PCP to make sure all recommended cancer screens and vaccinations are complete. Avoid live-vaccines unless reviewed with senior java data architect first. Chronic left SI joint pain 08/18/2021 Assessment & Plan (08/18/2021 7:37 AM SUBWAY REPAIR SUPERVISOR): Acute onset, now chronic, more likely mechanical/degenerative in nature. Medrol dose pack for acute flare of chronic symptoms. Imaging today. Discuss likelihood of PT with low threshold to proceed on to MRI or referral for SI joint injection. Angioedema 04/16/2017 Injury of finger 09/17/2014 Rheumatoid arthritis involvi ng multiple sites with positive rheumatoid factor 01/30/2014 Overview (12/21/2016): RHEUMATOID ARTHRITIS Assessment & Plan (12/30/2023 9:07 AM CDT): Previously stable on Simponi Aria infusions and MTX. Plan to resume if labs today are stable and without thrombocytopenia. Follow up in 3 months and prn. He will also repeat his cBC 3-4 weeks after resuming his methotrexate. Assessment & Plan (07/29/2023 2:34 PM SUBWAY REPAIR SUPERVISOR): Stable on simponi and MTX. Feels that simponi may be a bit less effective than originally and will consider a change at next visit. Assessment & Plan (04/11/2023 9:33 AM CDT): Currently stable on Simponi and MTX. Continue same. Follow up in 3-4 months and prn. Assessment & Plan (08/18/2021 7:35 AM SUBWAY REPAIR SUPERVISOR): Chronic, stable on MTX and Simponi. Continue to monitor. Immunizations Name Administration Dates Next Due Flucelvax Influenza Quad 06/25/2017 Influenza, Quad, Adjuvantate d, Intramuscular 06/10/2020 Influenza, Quadrivalent, Hig h Dose, Preservative Free, Intrr 07/29/2023,05/30/2022 Influenza, Quadrivalent, Spl it, Preservative Free, Intramuscular 08/05/2021,06/09/2019,05/27/2018,07/30,08/09/2015,06/25/2014 Influenza, Split 08/10/2013,07/24/2011 Influenza, Trivalent, IM (MDV) 07/11/2012 Influenza, Trivalent, Preser vative Free, Intramuscular 08/10/2013 Influenza, Unspecified 07/15/2017 Moderna SARS-CoV-2 Monovalen t Vaccination (12+ YRS) 12/05/2020,11/02/2020 Moderna Sars-cov-2 Monovalen t Booster Vaccination .25 Ml dose (12+ YRS) 10/05/2021 Pneumococcal Conjugate PCV 13 08/22/2015 Pneumococcal Polysaccharide PPV23 07/13/2020 Tdap 05/25/2017 Social History Tobacco Use Types Packs/Day Years Used Date Smoking Tobacco: Former Cigarettes 0.8 25 Smokeless Tobacco: Former Chew Quit: 07/18/2019 Tobacco Cessation:Counseling Given: Not Answered Alcohol Use Standard Drinks/Week Comments Yes 0 (1 standard drink = 0.6 oz pur e alcohol) AUDIT-C Answer Date Recorded Frequency of Alcohol Consumption Monthly or less 10/28/2019 Average Number of Drinks Not on file 020 Frequency of Binge Drinking Not on file 10/17 PHQ-2 Answer Date Recorded PHQ-2 Total Score (If total score is 3 or more points, staff should administer the PHQ-9) 0 05/30/2022 Sex and Gender Information Value Date Recorded Sex Assigned at Not on file Legal Sex Male 1:11 AM SUBWAY REPAIR SUPERVISOR Gender Identity Male 12/16/2020 7:16 AM CDT Sexual Orientation Straight 12/16/2020 7: 16 AM CDT Last Filed Vital Signs Vital Sign Reading Time Taken Comments Blood Pressure 128/69 10/19/2024 2:00 PM SUBWAY REPAIR SUPERVISOR Pulse 83 10/19/2024 2:00 PM SUBWAY REPAIR SUPERVISOR Temperature 36.3 C (97.3 F) 10/19/2024 2:00 PM SUBWAY REPAIR SUPERVISOR Respiratory Rate 18 10/19/2024 2:00 PM SUBWAY REPAIR SUPERVISOR Oxygen Saturation 97% 10/19/2024 2:00 PM SUBWAY REPAIR SUPERVISOR Inhaled Oxygen Concentration - - Weight 86.6 kg (191 lb) 10/19/2024 2:00 PM SUBWAY REPAIR SUPERVISOR Height 182.9 cm (6') 06/03/2024 2:19 PM CDT Body Mass Index 25.9 06/03/2024 2:19 PM CDT Plan of Treatment Not on file Procedures Procedure Name Priority Date/Time Associated Diagnosis Comments HEPATITIS PANEL, ACUTE Routine 09/07/2019 9:01 AM SUBWAY REPAIR SUPERVISOR Rheumatoid arthritis involving multiple sites with positive rheumatoid factor (CMS/HCC) from Last 3 Months or Most Recently Relevant to Health Maintenance Results * Hepatitis panel, acute (09/07/2019 9:01 AM SUBWAY REPAIR SUPERVISOR) Hep A IgM Nonreactive Nonreactive [facility] Comment: Interpretive Data If test is reported as GRAYZONE, new sample should be drawn in two weeks for testing. Current interpretive data was last revised on 2016. Hep B core IgM Nonreactive Nonreactive [facility] Comment: Interpretive Data If test is reported as GRAYZONE, new sample should be drawn for testing. Current interpretive data was last revised on 2016. Hep C Ab Nonreactive Nonreactive [facility] Comment: Interpretive Data Positive results should be confirmed by a molecular method. If positive, a second separately collected sample should be submitted for Hepatitis C Virus (HCV) RNA Detection and Quantitation by Real-Time Reverse Obstetrics Tech-PCR (RT-PCR). Current interpretive data was last revised on 2016. HepBsAg Nonreactive Nonreactive [facility] Blood specimen (specimen) 09/07/2019 9:01 AM SUBWAY REPAIR SUPERVISOR 09/07/2019 10:44 AM SUBWAY REPAIR SUPERVISOR us Merle Sol MD LAB MICROBIOLOGY - GENERAL O RDERABLES Edited Result - Final [facility] Department [place] [address] from Last 3 Months or Most Recently Relevant to Health Maintenance Insurance [employer] [place] [employer] GENER[place] MEDICARE [employer] CARE OTHER [employer] [address] MEDICARE [employer] MEDICARE [facility] [place] [address] Care Teams Director Of Financial Aid Relationship Specialty Start Date End Date Davey Reynolds MD [address] [facility] [address] [place] [address] PCP - General Family Medicine 12/07/19
--- OUTSIDE RECORDS SUMMARY | 2024-10-30 06:50 | XMS_ITS | Clinical Summary ---
Author Organization [facility] Address [address] [place] [address] Care Team Providers Care Senior Trial Attorney Name Role Phone Davey Reynolds MD Primary Care Provider Allergies Active Allergy Reactions Criticality Noted Date [...] further. Please make sure to check any tjgk-thx-vcwasfe products you may take as well as any prescription pain relievers that include acetaminophen as you will need to include those doses in the 3000 mg limit of the medication. When taking acetaminophen regularly, I ask that you avoid alcohol or modify to only 1 alcohol drink a few days a week. Assessment & Plan (07/29/2023 2:39 PM TRAFFIC CONTROL TECHNICIAN): Seems a bit improved after steroid taper [...] further. Please make sure to check any mgli-bmj-jzvbkrx products you may take as well as [...] further. Please make sure to check any mvly-lgb-dcnabbq products you may take as well as [...] 08/18/2021 Assessment & Plan (07/29/2023 2:33 PM TRAFFIC CONTROL TECHNICIAN): Long-term use of high-risk medication requiring regular monitoring. Labs ordered, no s/s of med tox or infection. Encouraged to work with PCP to make sure all recommended cancer screens and vaccinations are complete. Avoid live-vaccines unless reviewed with cardiac monitor first. High dose flu vaccine administered today. Assessment & Plan (04/11/2023 9:32 AM CDT): Long-term use of high-risk medication requiring regular monitoring. Labs ordered, no s/s of med tox or infection. Encouraged to work with PCP to make sure all recommended cancer screens and vaccinations are complete. Avoid live-vaccines unless reviewed with cardiac monitor first. Assessment & Plan (08/18/2021 7:34 AM TRAFFIC CONTROL TECHNICIAN): Long-term use of high-risk medication requiring regular monitoring. Labs ordered, no s/s of med tox or infection. Encouraged to work with PCP to make sure all recommended cancer screens and vaccinations are complete. Avoid live-vaccines unless reviewed with cardiac monitor first. Chronic left SI joint pain 08/18/2021 Assessment & Plan (08/18/2021 7:37 AM TRAFFIC CONTROL TECHNICIAN): Acute onset, now chronic, more likely mechanical/degenerative [...] methotrexate. Assessment & Plan (07/29/2023 2:34 PM TRAFFIC CONTROL TECHNICIAN): Stable on simponi and MTX. Feels that simponi may be a bit less effective than originally and will consider a change at next visit. Assessment & Plan (04/11/2023 9:33 AM CDT): Currently stable on Simponi and MTX. Continue same. Follow up in 3-4 months and prn. Assessment & Plan (08/18/2021 7:35 AM TRAFFIC CONTROL TECHNICIAN): Chronic, stable on MTX and Simponi. Continue to monitor. Encounters Date Type Department Care Team Description 10/19/2024 2:00 PM TRAFFIC CONTROL TECHNICIAN Infusion [facility] [address] [address] Rheumatoid arthritis involving multiple sites with positive rheumatoid factor (CMS/HCC) (HCC) (Primary Dx) 08/24/2024 2:15 PM TRAFFIC CONTROL TECHNICIAN Infusion [facility] Infusion [address] [address] Rheumatoid arthritis involving multiple sites with positive rheumatoid factor (CMS/HCC) (HCC) (Primary Dx) from Last 3 Months Immunizations Name Administration Dates Next Due Flucelvax [...] 08/22/2015 Pneumococcal Polysaccharide PPV23 07/13/2020 Tdap 05/25/2017 Surgical History Surgery Date Site/Laterality Comments OTHER SURGICAL HISTORY 2002 percutaneous transluminal balloon angioplasty with insertion of stent into coronary artery APPENDECTOMY 1958 Medical History Medical History Date Comments Hyperlipidemia Hyperlipidemia Rheumatoid arthritis (HCC) GERD (gastroesophageal reflux disease) 3-2021 Family History Medical History Relation Name Comments Lung disease Father lung disease; Colon cancer Mother Other Mother Alive and well; Relation Name Status Comments Father Mother Alive [...] on file Legal Sex Male 1:11 AM TRAFFIC CONTROL TECHNICIAN Gender Identity Male 12/16/2020 7:16 AM CDT Sexual Orientation Straight 12/16/2020 7: 16 AM CDT Obstetrics History Last Filed Vital Signs Vital Sign Reading Time Taken Comments Blood Pressure 128/69 10/19/2024 2:00 PM TRAFFIC CONTROL TECHNICIAN Pulse 83 10/19/2024 2:00 PM TRAFFIC CONTROL TECHNICIAN Temperature 36.3 C (97.3 F) 10/19/2024 2:00 PM TRAFFIC CONTROL TECHNICIAN Respiratory Rate 18 10/19/2024 2:00 PM TRAFFIC CONTROL TECHNICIAN Oxygen Saturation 97% 10/19/2024 2:00 PM TRAFFIC CONTROL TECHNICIAN Inhaled Oxygen Concentration - - Weight 86.6 kg (191 lb) 10/19/2024 2:00 PM TRAFFIC CONTROL TECHNICIAN Height 182.9 cm (6') 06/03/2024 2:19 PM CDT Body Mass Index 25.9 06/03/2024 2:19 PM CDT Plan of Treatment Health Maintenance Due Date Last Done Comments Colon Cancer Screening-Colonoscopy 1954 Hepatitis B Screening 1972 Zoster Vaccine (1 of 2) 1973 Abdominal Aortic Aneurysm (A AA) Screen 2019 Well Visit 65+ 2019 Covid-19 Vaccine (3 - Modern a risk series) 11/02/2021 10/05/2021, 12/05/2020, 11/02/2020 Depression Screening 05/30/2023 05/30/2022, 07/13/20 20 Influenza Vaccine (#1) 2024 3, 05/30/2022, 08/05/2021, Additional history exists Fall Risk Assessment 10/19/2025 10/19/2024, 05/30/2022, 10/05/2020, Additional history exists DTaP/Tdap/Td Vaccine (2 - Td or Tdap) 05/25/2027 05/25/2017 Hepatitis C Screening Completed 09/07/2019 Pneumococcal vaccine 65+ Completed 07/13/2020, 03/2015 Procedures Procedure Name Priority Date/Time Associated Diagnosis Comments HEPATITIS PANEL, ACUTE Routine 09/07/2019 9:01 AM TRAFFIC CONTROL TECHNICIAN Rheumatoid arthritis involving multiple sites with positive rheumatoid factor (CMS/HCC) from Last 3 Months or Most Recently Relevant to Health Maintenance Results * Hepatitis panel, acute (09/07/2019 9:01 AM TRAFFIC CONTROL TECHNICIAN) Hep A IgM Nonreactive Nonreactive [facility] Comment: Interpretive Data If test is reported as GRAYZONE, new sample should be drawn in two weeks for testing. Current interpretive data was last revised on 2016. Hep B core IgM Nonreactive Nonreactive [facility] Comment: Interpretive Data If test is reported as GRAYZONE, new sample should be drawn for testing. Current interpretive data was last revised on 2016. Hep C Ab Nonreactive Nonreactive [facility] Comment: Interpretive Data Positive results should be confirmed by a molecular method. If positive, a second separately collected sample should be submitted for Hepatitis C Virus (HCV) RNA Detection and Quantitation by Real-Time Reverse Cost Recovery Technician-PCR (RT-PCR). Current interpretive data was last revised on 2016. HepBsAg Nonreactive Nonreactive [facility] Blood specimen (specimen) 09/07/2019 9:01 AM TRAFFIC CONTROL TECHNICIAN 09/07/2019 10:44 AM TRAFFIC CONTROL TECHNICIAN us Merle oSl MD LAB MICROBIOLOGY - GENERAL O RDERABLES Edited Result - Final [facility] Department [place] [address] from Last 3 Months or Most Recently Relevant to Health Maintenance Insurance [place] CHO[place]F [place] COMMERCIAL GENERIC MEDICARE AETNA CARE OTHER [facility] INSURANCE MEDICARE [facility] MEDICARE [facility] INSURANCE Care Teams Senior Trial Attorney Relationship Specialty Start Date End Date Davey Reynolds MD [address] [facility] [address] [place] [address] PCP - General Family Medicine 12/07/19
--- OUTSIDE RECORDS SUMMARY | 2024-10-30 06:50 | XMS_ITS | Patient Health Summary ---
Author Organization [facility] Address [address] [facility] [place] [address] Care Team Providers Care Protocol Manager Name Role Phone Unavailable Primary Care Provider Unavailabl e Note from [facility],non-owned Affiliates and Associated Physician Practices is amultiple site organization consisting of ambulatory clinics and hospital sitesin [place], [place], [place] and [place]. This disclosure is being madepursuant to the Care Everywhere program and may not contain all information available regarding this patient. Last updated 18.[facility] [employer] Social History Tobacco Use Types Packs/Day Years Used Date Smoking Tobacco: Never Assessed Sex and Gender Information Value Date Recorded Sex Assigned at Not on file Gender Identity Not on file Sexual Orientation Not on file
--- OUTSIDE RECORDS SUMMARY | 2024-10-30 06:50 | XMS_ITS | Referral Summary ---
Author Organization [facility] Address [address] [facility] [place] [address] Care Team Providers Care Project Systems Engineer Name Role Phone Unavailable Primary Care Provider Unavailabl e Source Comments [facility],non-owned Affiliates and Associated Physician Practices is amultiple site organization consisting of ambulatory clinics and hospital sitesin [place], [place], [place] and [place]. This disclosure is being madepursuant to the Care Everywhere program and may not contain all information available regarding this patient. Last updated 18.[facility] [employer] Social History Tobacco Use Types Packs/Day Years Used Date Smoking Tobacco: Never Assessed Sex and Gender Information Value Date Recorded Sex Assigned at Not on file Gender Identity Not on file Sexual Orientation Not on file Plan of Treatment Not on file RASHEED,SEBASTIÁN Personal/Family Spouse [address] [place] [address]
[2024-10-30 08:00] LABS: Hemoglobin 16.7 g/dL (14.0-18.0); Mean Corpuscular HGB Conc 32.1 g/dl (32-36); Mean Corpuscular Hemoglobin 29.8 pg (26-34); Mean Corpuscular Volume 92.9 fl (80-100); Mean Platelet Volume 11.1 fl (7.4-10.4); Platelet Count Result 205 k/mm3 (150-375); Red Cell Distribution Width 14.6 % (11.5-14.5); White Blood Count 8.1 K/mm3 (4.5-10.0)
[2024-10-30 08:13] LABS: Alanine Aminotransferase 23 U/L (6-50); Alkaline Phosphatase 110 U/L (38-126); Anion Gap 5 mmol/L (4-12); Aspartate Amino Transferase 39 U/L (17-59); Bilirubin,Total 0.9 mg/dL (0.2-1.3); Blood Urea Nitrogen 20 mg/dL (9-20); Calcium 9.9 mg/dL (8.4-10.2); Carbon Dioxide 30 mmol/L (22-30); Chloride 104 mmol/L (98-107); Cholesterol 108 mg/dL (0-200); Estimated Glomerular Filt Rate > 60; Glucose 88 mg/dL (65-110); HDL Direct 37 mg/dL; Potassium 4.9 mmol/L (3.4-5.0); Sodium 139 mmol/L (137-145); Triglycerides 185 mg/dL (<150)
[2024-10-30 08:30] LABS: LDL Cholesterol Direct 36 mg/dL
[2024-10-30 08:39] LABS: Thyroid Stimulating Hormone 0.739 uIU/mL (0.465-4.680)
[2024-10-30 08:53] LABS: Add Urine Microscopic? NO; Appearance Urine Clear (Clear); Bilirubin Urine Negative (Negative); Blood Urine Negative (Negative); Color Urine Yellow (Yellow); Glucose Urine UA Negative (Negative); Ketones Urine Negative (Negative); Leukocyte Esterase Ur Negative LEU/UL (Negative); Nitrate Urine Negative (Negative); Protein Urine Negative (Negative); Urobilinogen Urine 0.2 mg/dL (<2.0); pH Urine 5.5 (5.0-9.0)
[2024-10-30 09:49] LABS: Hemoglobin A1C 5.6 % (<5.7)
== END 2024-10-30 06:47 | disposition home or self-care (01) ==
PROVIDERS: PCP Family Medicine; Visit Provider Family Medicine
DX: I25.10 Atherosclerotic heart disease of native coronary artery without angina pectoris (principal); E78.5 Hyperlipidemia, unspecified; Z00.00 Encounter for general adult medical examination without abnormal findings; R35.1 Nocturia; R73.01 Impaired fasting glucose
CPT/HCPCS: 36415; 80053; 80061; 81003; 83036; 84443; 85027

== ENCOUNTER 2024-11-05 15:20 | Outpatient (CLI) | payer MEDICARE, SELFPAY ==
--- NOTE | ~2024-11-05 | XR_ITS ---
EXAMINATION: XR shoulder LT min 2V DATE: 11/05/2024 15:39 INDICATION: Left shoulder pain TECHNIQUE: AP internally and externally rotated, AP oblique externally rotated and transscapular Y vi ews of the left shoulder were obtained. COMPARISON: None FINDINGS: Normal alignment. No fracture.Mild glenohumeral and acromioclavicular osteoarthritis. Small round danilo cencies with thin sclerotic at the lesser tuberosity and along the lateral margin of the intertubercu lar groove. This could represent degenerative cystic change versus suture anchor site of prior rotato r cuff cuff repair or bicipital tenodesis. Left lung is clear. Gas within a large retrocardiac hiatal hernia. Severe thoracic spondylosis. IMPRESSION: 1. Chronic left acromioclavicular and glenohumeral osteoarthritis. No acute osseous abnormality. 2. Large hiatal hernia. Reviewed, dictated and finalized at location A. UTER LANGUAGE CODER IMPRESSION: 1. Chronic left acromioclavicular and glenohumeral osteoarthritis. No acute oss eous abnormality. 2. Large hiatal hernia.
--- OUTSIDE RECORDS SUMMARY | 2024-11-05 15:26 | XMS_ITS | Clinical Summary ---
Author Organization [facility] Address [address] [place] [address] Care Team Providers Care Inspector Finishing Name Role Phone Unavailable Primary Care Provider Unavailabl e Source Comments [facility],non-owned Affiliates and Associated Physician Practices is amultiple site organization consisting of ambulatory clinics and hospital sitesin [place], [place], [place] and [place]. This disclosure is being madepursuant to the Care Everywhere program and may not contain all information available regarding this patient. Last updated 18.[facility] [employer] Social History Tobacco Use Types Packs/Day Years [...] on patient's age to complete this topic Insurance Payer Benefit Plan / Group Subscriber ID Effective Dates Phone Address Type MEDICARE MEDICARE PART A AND B [id number] Effective for all dates [address] [place] [address] Medicare MEDICARE SUPPLEMENT PAYOR GENERIC MEDICARE SUPPLEMENT PLAN GENERIC [id number] 12/09/2023-Pre sent [phone] [address] [address] [place] [address] Commercial MEDICARE MEDICARE PART A AND B [id number] Effective for all dates [address] [place] [address] Medicare MEDICARE SUPPLEMENT PAYOR GENERIC MEDICARE SUPPLEMENT PLAN GENERIC Effective for all dates Commercial MEDICARE MEDICARE PART A AND B [id number] Effective for all dates [address] [place] [address] Medicare MEDICARE SUPPLEMENT PAYOR GENERIC MEDICARE SUPPLEMENT PLAN GENERIC Effective for all dates Commercial MEDICARE MEDICARE PART A AND B [id number] Effective for all dates [address] [place] [address] Medicare MEDICARE SUPPLEMENT PAYOR GENERIC MEDICARE SUPPLEMENT PLAN GENERIC Effective for all dates Commercial MEDICARE MEDICARE PART A AND B [id number] Effective for all dates [address] [place] [address] Medicare MEDICARE SUPPLEMENT PAYOR GENERIC MEDICARE SUPPLEMENT PLAN GENERIC Effective for all dates Commercial MEDICARE MEDICARE PART A AND B [id number] Effective for all dates [address] [place] [address] Medicare MEDICARE SUPPLEMENT PAYOR GENERIC MEDICARE SUPPLEMENT PLAN GENERIC [id number] 12/09/2023-Pre sent [address] [address] [place] [address] Commercial MEDICARE MEDICARE PART A AND B [id number] 12/09/2023-Pre sent [phone] [address] [place] [address] Medicare
--- OUTSIDE RECORDS SUMMARY | 2024-11-05 15:26 | XMS_ITS | Referral Summary ---
Author Organization [facility] Address [address] [place] [address] Care Team Providers Care Dolly Driver Name Role Phone Davey Reynolds MD Primary Care Provider Encounters Date Type Department Care Team Description 11/04/2024 1:30 PM CHEESE MAKER Office Visit [facility] Rheumatology at [facility] [address] [place] [id number] Loraine Becerril NP Rheumatoid arthritis involving multiple sites with positive rheumatoid factor (CMS/HCC) (Primary Dx); Long-term use of high-risk medication; Immunosuppression due to drug therapy (HCC) 10/19/2024 2:00 PM CHEESE MAKER Infusion [facility] [address] [place] [phone] Rheumatoid arthritis involving multiple sites with positive rheumatoid factor (CMS/HCC) (HCC) (Primary Dx) 08/24/2024 2:15 PM CHEESE MAKER Infusion [facility] [address] [place] [phone] Rheumatoid arthritis involving multiple sites with [...] BRUSH TEETH 3 TIMES DAILY 0 Active folic acid (FOLVITE) 1 mg tablet TAKE 1 TABLET(1 MG) BY MOUTH DAILY 90 tablet 1 4 Active cyclobenzaprine (FLEXERIL) 10 mg tabletIndicatio ns:Muscle Spasm Take 1 tablet (10 mg total) by mouth 2 (two) times a day as needed for muscle spasms 60 tablet 2 3 11/04/19 25 Discontinu ed(Therapy completed) fluticasone propionate (FLONASE) 50 mcg/actuation nasal spray SHAKE LIQUID AND USE 1 SPRAY IN EACH NOSTRIL EVERY 12 HOURS 4 11/04/19 Discontinu ed(Therapy completed) nystatin 100,000 unit/mL suspension SHAKE LIQUID AND TAKE 5 ML BY MOUTH FOUR TIMES DAILY 4 11/04/19 25 Discontinu ed(Therapy completed) pantoprazole DR (PROTONIX) 40 mg EC tablet Take 1 tablet (40 mg total) by mouth every 12 (twelve) hours 4 11/04/19 25 Discontinu ed(Therapy completed) predniSONE (DELTASONE) 10 mg tablet 4 11/04/19 25 Discontinu ed(Therapy completed) methotrexate 2.5 mg tablet TAKE 10 TABLETS BY MOUTH ONCE EVERY 7 DAYS 128 tablet 4 11/04/19 Discontinu ed(Therapy completed) Active Problems Problem Noted Date Diagnosed Date Immunosuppression due to drug therapy 11/04/2024 Assessment & Plan (11/04/2024 2:55 PM CHEESE MAKER): Encourage routine vaccinations. Follow up with PCP. Avoid close contact with infectious individuals. If you become ill, please let us know so we can provide guidance on holding your immunosuppressant medications. Primary osteoarthritis involving multiple joints 04/11/2023 Assessment & Plan (11/04/2024 2:56 PM CHEESE MAKER): For additional pain relief, you can add arthritis strength acetaminophen (650 mg in each sustained release tablet) which comes under a variety of name brands but may be dosed at 1-2 tablets in the morning and 1-2 tablets in the evening. In your case I recommend limiting total acetaminophen dose of no more than 2000 mg in a 24 hour period unless we discuss further. Please make sure to check any lihj-hfi-izywgmg products you may take as well as any prescription pain relievers that include acetaminophen as you will need to include those doses in the 2000 mg limit of the medication. When taking acetaminophen regularly, I ask that you avoid alcohol or modify to only 1 alcohol drink a few days a week You can use topical diclofenac gel massaged [...] be kept away from children and pets. ; May return for shoulder IASI if desired. Assessment & Plan (12/30/2023 9:07 AM CDT): [...] further. Please make sure to check any mzqr-xkk-wugqdzs products you may take as well as any prescription pain relievers that include acetaminophen as you will need to include those doses in the 3000 mg limit of the medication. When taking acetaminophen regularly, I ask that you avoid alcohol or modify to only 1 alcohol drink a few days a week. Assessment & Plan (07/29/2023 2:39 PM CHEESE MAKER): Seems a bit improved after steroid taper [...] further. Please make sure to check any csum-nzq-xocpekv products you may take as well as [...] further. Please make sure to check any jumf-ncq-puobhwc products you may take as well as any prescription pain relievers that include acetaminophen as you will need to include those doses in the 3000 mg limit of the medication. When taking acetaminophen regularly, I ask that you avoid alcohol or modify to only 1 alcohol drink a few days a week. Long-term use of high-risk medication 08/18/2021 Assessment & Plan (11/04/2024 2:55 PM CHEESE MAKER): Long-term use of high-risk medication requiring regular monitoring. Labs done on 10/30/24 at [facility] reviewed today, no s/s of med tox or infection. Encouraged to work with PCP to make sure all recommended cancer screens and vaccinations are complete. Avoid live-vaccines unless reviewed with straw hat brim raiser operator first. Assessment & Plan (07/29/2023 2:33 PM CHEESE MAKER): Long-term use of high-risk medication requiring regular monitoring. Labs ordered, no s/s of med tox or infection. Encouraged to work with PCP to make sure all recommended cancer screens and vaccinations are complete. Avoid live-vaccines unless reviewed with straw hat brim raiser operator first. High dose flu vaccine administered today. Assessment & Plan (04/11/2023 9:32 AM CDT): Long-term use of high-risk medication requiring regular monitoring. Labs ordered, no s/s of med tox or infection. Encouraged to work with PCP to make sure all recommended cancer screens and vaccinations are complete. Avoid live-vaccines unless reviewed with straw hat brim raiser operator first. Assessment & Plan (08/18/2021 7:34 AM CHEESE MAKER): Long-term use of high-risk medication requiring regular monitoring. Labs ordered, no s/s of med tox or infection. Encouraged to work with PCP to make sure all recommended cancer screens and vaccinations are complete. Avoid live-vaccines unless reviewed with straw hat brim raiser operator first. Chronic left SI joint pain 08/18/2021 Assessment & Plan (08/18/2021 7:37 AM CHEESE MAKER): Acute onset, now chronic, more likely mechanical/degenerative in nature. Medrol dose pack for acute flare of chronic symptoms. Imaging today. Discuss likelihood of PT with low threshold to proceed on to MRI or referral for SI joint injection. Angioedema 04/16/2017 Injury of finger 09/17/2014 Rheumatoid arthritis involvi ng multiple sites with positive rheumatoid factor 01/30/2014 Overview (12/21/2016): RHEUMATOID ARTHRITIS Assessment & Plan (11/04/2024 2:54 PM CHEESE MAKER): Stable on Simponi monotherapy. Continue same. Follow up in 6 months and prn. Assessment & Plan (12/30/2023 9:07 AM CDT): Previously stable on Simponi Aria infusions and MTX. Plan to resume if labs today are stable and without thrombocytopenia. Follow up in 3 months and prn. He will also repeat his cBC 3-4 weeks after resuming his methotrexate. Assessment & Plan (07/29/2023 2:34 PM CHEESE MAKER): Stable on simponi and MTX. Feels that simponi may be a bit less effective than originally and will consider a change at next visit. Assessment & Plan (04/11/2023 9:33 AM CDT): Currently stable on Simponi and MTX. Continue same. Follow up in 3-4 months and prn. Assessment & Plan (08/18/2021 7:35 AM CHEESE MAKER): Chronic, stable on MTX and Simponi. Continue to monitor. Immunizations Immunization Administration Dates Next Due Flucelvax Influenza Quad [...] on file Legal Sex Male 1:11 AM CHEESE MAKER Gender Identity Male 12/16/2020 7:16 AM CDT Sexual Orientation Straight 12/16/2020 7: 16 AM CDT Last Filed Vital Signs Vital Sign Reading Time Taken Comments Blood Pressure 124/80 11/04/2024 1:28 PM CHEESE MAKER Pulse 80 11/04/2024 1:28 PM CHEESE MAKER Temperature 36.9 C (98.5 F) 11/04/2024 1:28 PM CHEESE MAKER Respiratory Rate 18 11/04/2024 1:28 PM CHEESE MAKER Oxygen Saturation 98% 11/04/2024 1:28 PM CHEESE MAKER Inhaled Oxygen Concentration - - Weight 87.1 kg (192 lb) 11/04/2024 1:28 PM CHEESE MAKER Height 182.9 cm (6') 11/04/2024 1:28 PM CHEESE MAKER Body Mass Index 26.04 11/04/2024 1:28 PM CHEESE MAKER Plan of Treatment Not on file Procedures Procedure Name Priority Date/Time Associated Diagnosis Comments HEPATITIS PANEL, ACUTE Routine 09/07/2019 9:01 AM CHEESE MAKER Rheumatoid arthritis involving multiple sites with positive rheumatoid factor (CMS/HCC) from Last 3 Months or Most Recently Relevant to Health Maintenance Results * Hepatitis panel, acute (09/07/2019 9:01 AM CHEESE MAKER) Hep A IgM Nonreactive Nonreactive [facility] Comment: Interpretive Data If test is reported as GRAYZONE, new sample should be drawn in two weeks for testing. Current interpretive data was last revised on 2016. Hep B core IgM Nonreactive Nonreactive [facility] Comment: Interpretive Data If test is reported as GRAYZONE, new sample should be drawn for testing. Current interpretive data was last revised on 2016. Hep C Ab Nonreactive Nonreactive [facility] Comment: Interpretive Data Positive results should be confirmed by a molecular method. If positive, a second separately collected sample should be submitted for Hepatitis C Virus (HCV) RNA Detection and Quantitation by Real-Time Reverse Staple Side Laster-PCR (RT-PCR). Current interpretive data was last revised on 2016. HepBsAg Nonreactive Nonreactive [facility] Blood specimen (specimen) 09/07/2019 9:01 AM CHEESE MAKER 09/07/2019 10:44 AM CHEESE MAKER us Merle Sol MD LAB MICROBIOLOGY - GENERAL O RDERABLES Edited Result - Final [facility] Department [place] [address] from Last 3 Months or Most Recently Relevant to Health Maintenance Insurance BL CHOICE PRF [place] COMMERCIAL GENER[place] MEDICARE AETNA CARE OTHER [place]URANCE MEDICARE [place] MEDICARE [place] [employer] Care Teams Dolly Driver Relationship Specialty Start Date End Date Davey Reynolds MD [address] [address] PCP - General Family Medicine 12/07/19
--- OUTSIDE RECORDS SUMMARY | 2024-11-05 15:26 | XMS_ITS | Clinical Summary ---
Author Organization [facility] Address [address] [place] [address] Care Team Providers Care Noc Engineer Name Role Phone Davey Reynolds MD Primary Care Provider [phone] Allergies Active Allergy Reactions Criticality Noted Date [...] AND B [employer] [address] [address] [place] [address] Care Teams Noc Engineer Relationship Specialty Start Date End Date Davey Reynolds MD [address] [facility] [address] [place] [address] PCP - General Family Practice 01/08/24
--- OUTSIDE RECORDS SUMMARY | 2024-11-05 15:26 | XMS_ITS | Referral Summary ---
Author Organization [facility] Address [address] [place] [address] Care Team Providers Care Beam House Inspector Name Role Phone Unavailable Primary Care Provider Unavailabl e Source Comments [facility],non-owned Affiliates and Associated Physician Practices is amultiple site organization consisting of ambulatory clinics and hospital sitesin [place], [place], [place] and [place]. This disclosure is being madepursuant to the Care Everywhere program and may not contain all information available regarding this patient. Last updated 18.[facility] Immediately Social History Tobacco Use Types Packs/Day Years Used Date Smoking Tobacco: Never Assessed Sex and Gender Information Value Date Recorded Sex Assigned at Not on file Gender Identity Not on file Sexual Orientation Not on file Plan of Treatment Not on file RASHEED,SEBASTIÁN Personal/Family Spouse [address] [place] [address]
--- OUTSIDE RECORDS SUMMARY | 2024-11-05 15:26 | XMS_ITS | Clinical Summary ---
Author Organization [facility] Address [address] [place] [address] Care Team Providers Care Machine Printer Hose Name Role Phone Davey Reynolds MD Primary [...] EACH NOSTRIL EVERY 12 HOURS 4 11/04/19 25 Discontinu ed(Therapy completed) nystatin 100,000 unit/mL suspension [...] EVERY 7 DAYS 128 tablet 4 11/04/19 25 Discontinu ed(Therapy completed) Active Problems Problem Noted Date Diagnosed Date Immunosuppression due to drug therapy 11/04/2024 Assessment & Plan (11/04/2024 2:55 PM PEST CONTROL SERVICE SALES AGENT): Encourage routine vaccinations. Follow up with PCP. Avoid close contact with infectious individuals. If you become ill, please let us know so we can provide guidance on holding your immunosuppressant medications. Primary osteoarthritis involving multiple joints 04/11/2023 Assessment & Plan (11/04/2024 2:56 PM PEST CONTROL SERVICE SALES AGENT): For additional pain relief, you can add [...] further. Please make sure to check any wmpc-ags-qxtumgj products you may take as well as [...] further. Please make sure to check any qmlj-bnl-eczmzlf products you may take as well as any prescription pain relievers that include acetaminophen as you will need to include those doses in the 3000 mg limit of the medication. When taking acetaminophen regularly, I ask that you avoid alcohol or modify to only 1 alcohol drink a few days a week. Assessment & Plan (07/29/2023 2:39 PM PEST CONTROL SERVICE SALES AGENT): Seems a bit improved after steroid taper [...] further. Please make sure to check any thss-rrg-zucuijc products you may take as well as [...] further. Please make sure to check any omhz-dcq-mwwqqel products you may take as well as [...] 08/18/2021 Assessment & Plan (11/04/2024 2:55 PM PEST CONTROL SERVICE SALES AGENT): Long-term use of high-risk medication requiring regular monitoring. Labs done on 10/30/[address] [facility] reviewed today, no s/s of med tox or infection. Encouraged to work with PCP to make sure all recommended cancer screens and vaccinations are complete. Avoid live-vaccines unless reviewed with marketing finance manager first. Assessment & Plan (07/29/2023 2:33 PM PEST CONTROL SERVICE SALES AGENT): Long-term use of high-risk medication requiring regular monitoring. Labs ordered, no s/s of med tox or infection. Encouraged to work with PCP to make sure all recommended cancer screens and vaccinations are complete. Avoid live-vaccines unless reviewed with marketing finance manager first. High dose flu vaccine administered today. Assessment & Plan (04/11/2023 9:32 AM CDT): Long-term use of high-risk medication requiring regular monitoring. Labs ordered, no s/s of med tox or infection. Encouraged to work with PCP to make sure all recommended cancer screens and vaccinations are complete. Avoid live-vaccines unless reviewed with marketing finance manager first. Assessment & Plan (08/18/2021 7:34 AM PEST CONTROL SERVICE SALES AGENT): Long-term use of high-risk medication requiring regular monitoring. Labs ordered, no s/s of med tox or infection. Encouraged to work with PCP to make sure all recommended cancer screens and vaccinations are complete. Avoid live-vaccines unless reviewed with marketing finance manager first. Chronic left SI joint pain 08/18/2021 Assessment & Plan (08/18/2021 7:37 AM PEST CONTROL SERVICE SALES AGENT): Acute onset, now chronic, more likely mechanical/degenerative [...] ARTHRITIS Assessment & Plan (11/04/2024 2:54 PM PEST CONTROL SERVICE SALES AGENT): Stable on Simponi monotherapy. Continue same. Follow [...] methotrexate. Assessment & Plan (07/29/2023 2:34 PM PEST CONTROL SERVICE SALES AGENT): Stable on simponi and MTX. Feels that simponi may be a bit less effective than originally and will consider a change at next visit. Assessment & Plan (04/11/2023 9:33 AM CDT): Currently stable on Simponi and MTX. Continue same. Follow up in 3-4 months and prn. Assessment & Plan (08/18/2021 7:35 AM PEST CONTROL SERVICE SALES AGENT): Chronic, stable on MTX and Simponi. Continue to monitor. Encounters Date Type Department Care Team Description 11/04/2024 1:30 PM PEST CONTROL SERVICE SALES AGENT Office Visit [facility] Medical [facility] Rheumatology at [facility] [address] [place] [address] Loraine Becerril, MALDONADO Rheumatoid arthritis involving multiple sites with positive rheumatoid factor (CMS/HCC) (Primary Dx); Long-term use of high-risk medication; Immunosuppression due to drug therapy (HCC) 10/19/2024 2:00 PM PEST CONTROL SERVICE SALES AGENT Infusion [facility] [address] [place] [phone] Rheumatoid arthritis involving multiple sites with positive rheumatoid factor (CMS/HCC) (HCC) (Primary Dx) 08/24/2024 2:15 PM PEST CONTROL SERVICE SALES AGENT Infusion [facility] [address] [place] [phone] Rheumatoid arthritis involving multiple sites with positive rheumatoid factor (CMS/HCC) (HCC) (Primary Dx) from Last 3 Months Immunizations Immunization Administration Dates Next Due Flucelvax [...] Rheumatoid arthritis (HCC) GERD (gastroesophageal reflux disease) -2021 Family History Medical History Relation Name Comments Lung disease Father lung disease; Colon cancer Mother Other Mother Alive and well; Relation Name Status Comments Father Mother Social History Tobacco Use Types Packs/Day Years Used Date Smoking Tobacco: Former Cigarettes 0.8 25 Smokeless Tobacco: Former Chew Quit: 07/18/2019 Tobacco Cessation:Counseling Given: Not Answered Alcohol Use Standard Drinks/Week Comments Yes 0 (1 standard drink = 0.6 oz pur e alcohol) AUDIT-C Answer Date Recorded Frequency of Alcohol Consumption Monthly or less 10/28/2019 Average Number of Drinks Not on file Frequency of Binge Drinking Not on file 10/17 PHQ-2 Answer Date Recorded PHQ-2 Total Score (If total score is 3 or more points, staff should administer the PHQ-9) 0 05/30/2022 Sex and Gender Information Value Date Recorded Sex Assigned at Not on file Legal Sex Male 1:11 AM PEST CONTROL SERVICE SALES AGENT Gender Identity Male 12/16/2020 7:16 AM CDT Sexual Orientation Straight 12/16/2020 7: 16 AM CDT Obstetrics History Last Filed Vital Signs Vital Sign Reading Time Taken Comments Blood Pressure 124/80 11/04/2024 1:28 PM PEST CONTROL SERVICE SALES AGENT Pulse 80 11/04/2024 1:28 PM PEST CONTROL SERVICE SALES AGENT Temperature 36.9 C (98.5 F) 11/04/2024 1:28 PM PEST CONTROL SERVICE SALES AGENT Respiratory Rate 18 11/04/2024 1:28 PM PEST CONTROL SERVICE SALES AGENT Oxygen Saturation 98% 11/04/2024 1:28 PM PEST CONTROL SERVICE SALES AGENT Inhaled Oxygen Concentration - - Weight 87.1 kg (192 lb) 11/04/2024 1:28 PM PEST CONTROL SERVICE SALES AGENT Height 182.9 cm (6') 11/04/2024 1:28 PM PEST CONTROL SERVICE SALES AGENT Body Mass Index 26.04 11/04/2024 1:28 PM PEST CONTROL SERVICE SALES AGENT Plan of Treatment Health Maintenance Due Date Last Done Comments Colon Cancer Screening-Colonoscopy 1954 Hepatitis B Screening 1972 Zoster Vaccine (1 of 2) 1973 Abdominal Aortic Aneurysm (A AA) Screen 2019 Well Visit 65+ 2019 Covid-19 Vaccine (3 - Modern a risk series) 11/02/2021 10/05/2021, 12/05/2020, 11/02/2020 Depression Screening 05/30/2023 05/30/2022, 07/13/20 Influenza Vaccine (#1) 2024 , 05/30/2022, 08/05/2021, Additional history exists Fall Risk Assessment 10/19/2025 10/19/2024, 05/30/2022, 10/05/2020, Additional history exists DTaP/Tdap/Td Vaccine (2 - Td or Tdap) 05/25/2027 05/25/2017 Hepatitis C Screening Completed 09/07/2019 Pneumococcal vaccine 65+ Completed 07/13/2020, 03/2015 Procedures Procedure Name Priority Date/Time Associated Diagnosis Comments HEPATITIS PANEL, ACUTE Routine 09/07/2019 9:01 AM PEST CONTROL SERVICE SALES AGENT Rheumatoid arthritis involving multiple sites with positive rheumatoid factor (CMS/HCC) from Last 3 Months or Most Recently Relevant to Health Maintenance Results * Hepatitis panel, acute (09/07/2019 9:01 AM PEST CONTROL SERVICE SALES AGENT) Hep A IgM Nonreactive Nonreactive [facility] Comment: Interpretive Data If test is reported as GRAYZONE, new sample should be drawn in two weeks for testing. Current interpretive data was last revised on 2016. Hep B core IgM Nonreactive Nonreactive [facility] Comment: Interpretive Data If test is reported as GRAYZONE, new sample should be drawn for testing. Current interpretive data was last revised on 2016. Hep C Ab Nonreactive Nonreactive [facility] Comment: Interpretive Data Positive results should be confirmed by a molecular method. If positive, a second separately collected sample should be submitted for Hepatitis C Virus (HCV) RNA Detection and Quantitation by Real-Time Reverse Clinical Assoc-PCR (RT-PCR). Current interpretive data was last revised on 2016. HepBsAg Nonreactive Nonreactive [facility] Blood specimen (specimen) 09/07/2019 9:01 AM PEST CONTROL SERVICE SALES AGENT 09/07/2019 10:44 AM PEST CONTROL SERVICE SALES AGENT us Merle Sol MD LAB MICROBIOLOGY - GENERAL O RDERABLES Edited Result - Final [facility] Department [place] [address] from Last 3 Months or Most Recently Relevant to Health Maintenance Insurance CHOICE [facility] PPO MS COMMERCIAL GENERIC MEDICARE AETNA CARE OTHER [employer] MEDICARE [employer] MEDICARE [facility] INSURANCE Care Teams Machine Printer Hose Relationship Specialty Start Date End Date Davey Reynolds MD [address] [facility] [address] [place] [address] PCP - General Family Medicine 12/07/19
--- OUTSIDE RECORDS SUMMARY | 2024-11-05 15:26 | XMS_ITS | Encounter Summary ---
Author Organization [facility] Address [address] [place] [id number] Care Team Providers Care Heat And Vent Aircraft Mechanic Name Role Phone Davey Reynolds MD Primary Care Provider Reason for Visit * Reason Comments Follow-up Rheumatoid arthritis involving multiple sites with positive rheumatoid factor, Encounter Details Date Type Department Care Team (Latest Contact Info) Description 11/04/2024 1:30 PM PROFESSOR OF THEATER Office Visit [facility] Medical Group Rheumatology at [facility] [address] [place] [address] Loraine Becerril NP [address] [address] [place] [address] Rheumatoid arthritis involving multiple sites with positive rheumatoid factor (CMS/HCC) (Primary Dx); Long-term use of high-risk medication; Immunosuppression due to drug therapy (HCC) Social History Tobacco Use Types Packs/Day Years Used Date Smoking Tobacco: Former Cigarettes 0.8 25 Smokeless Tobacco: Former Chew Quit: 07/18/2019 Alcohol Use Standard Drinks/Week Comments Yes 0 [...] on file Legal Sex Male 1:11 AM PROFESSOR OF THEATER Gender Identity Male 12/16/2020 7:16 AM CDT Sexual Orientation Straight 12/16/2020 7: 16 AM CDT documented as of this encounter Last Filed Vital Signs Vital Sign Reading Time Taken Comments Blood Pressure 124/80 11/04/2024 1:28 PM PROFESSOR OF THEATER Pulse 80 11/04/2024 1:28 PM PROFESSOR OF THEATER Temperature 36.9 C (98.5 F) 11/04/2024 1:28 PM PROFESSOR OF THEATER Respiratory Rate 18 11/04/2024 1:28 PM PROFESSOR OF THEATER Oxygen Saturation 98% 11/04/2024 1:28 PM PROFESSOR OF THEATER Inhaled Oxygen Concentration - - Weight 87.1 kg (192 lb) 11/04/2024 1:28 PM PROFESSOR OF THEATER Height 182.9 cm (6') 11/04/2024 1:28 PM PROFESSOR OF THEATER Body Mass Index 26.04 11/04/2024 1:28 PM PROFESSOR OF THEATER documented in this encounter Progress Notes * Loraine Becerril, IRONMOLDER - 11/04/2024 1:30 PM CST Follow-up (Rheumatoid arthritis involving multiple sites with positive rheumatoid factor, ) HPI: This is a 69 y.o. male patient presenting with a chief complaint of Follow-up (Rheumatoid arthritisinvolving multiple sites with positive rheumatoid factor, ) He is doing pretty well. Has not been on mtx since Oct 2023. Has been on simponi,Tolerating well. No infectious symptoms. Platelet count rebounded off mtx. He was seen by Dominique when he was hospitalized in the Spring when he had thrush and mono and was noted to have a lower platelet count. He would prefer to stay off the MTX if possible. He hurt his left shoulder last week when playing with his grandchildren. He is seeing his PCP about it tomorrow. Current Outpatient Medications Medication Sig Dispense Refill aspirin 81 mg tablet take 1 tablet by oral route every day 0 0 cetirizine-pseudoephedrine ER (ZyrTEC-D) 5-120 mg per 12 hr tablet take 1 tablet by oral route every 12 hours 0 finasteride (PROPECIA) 1 mg tablet Take one by mouth one time per day 0 0 folic acid (FOLVITE) 1 mg tablet TAKE 1 TABLET(1 MG) BY MOUTH DAILY 90 tablet 1 ketoconazole (NIZORAL) 2 % cream 11 metoprolol (LOPRESSOR) 50 mg tablet Take 1/2 by mouth two times per day 0 0 multivitamin tablet tablet Take one by mouth one time per day 0 0 PreviDent 5000 Booster Plus 1.1 % paste BRUSH TEETH 3 TIMES DAILY simvastatin (ZOCOR) 40 mg tablet Take one by mouth one time per day 0 0 No current facility-administered medications for this visit. Aspirin and Nsaids (non-steroidal anti-inflammatory drug) Past Medical History: Diagnosis Date GERD (gastroesophageal reflux disease) -2021 Hyperlipidemia Hyperlipidemia Rheumatoid arthritis (HCC) Family History Problem Relation Age of Onset Other Mother Alive and well; Colon cancer Mother Lung disease Father lung disease; Past Surgical History: Procedure Laterality Date APPENDECTOMY 1958 OTHER SURGICAL HISTORY 2002 percutaneous transluminal balloon angioplasty with insertion of stent into coronary artery Social History Tobacco Use Smoking status: Former Current packs/day: 0.75 Average packs/day: 0.8 packs/day for 25.0 years (18.8 ttl pk-yrs) Types: Cigarettes Smokeless tobacco: Former Types: Chew Quit date: 07/18/2019 Substance and Sexual Activity Drug use: Never Sexual activity: Yes Partners: Female Alcohol Use: Unknown (10/28/2019) AUDIT-C Frequency of Alcohol Consumption: Monthly or less Average Number of Drinks: Not on file Frequency of Binge Drinking: Not on file Review of Systems Constitutional: Negative for fatigue, fever and unexpected weight change. HENT: Negative for nosebleeds and trouble swallowing. Eyes: Negative for photophobia, pain and redness. Respiratory: Negative for cough and shortness of breath. Cardiovascular: Negative for chest pain and leg swelling. Gastrointestinal: Negative for abdominal pain, blood in stool, constipation, diarrhea, nausea and vomiting. Endocrine: Negative for cold intolerance and heat intolerance. Genitourinary: Negative for dysuria and hematuria. Musculoskeletal: Negative for arthralgias, back pain, joint swelling, myalgias and neck pain. Skin: Negative for rash. Neurological: Negative for weakness and headaches. Hematological: Does not bruise/bleed easily. Psychiatric/Behavioral: Negative for suicidal ideas. The patient is not nervous/anxious. Vitals BP 124/80 (BP Location: Left arm, Patient Position: Sitting) Pulse 80 Temp 36.9 ??C (98.5 ??F) (Oral) Resp 18 Ht 182.9 cm (6') Wt 87.1 kg (192 lb) SpO2 98% BMI 26.04 kg/m?? Body mass index is 26.04 kg/m??. Physical exam: Constitutional:well developed, well nourished, in no acute distress, alert and oriented X 3 Nose: normal Ears: normal external appearance Eyes: PERRL, normal extraocular movements, normal conjunctiva and sclera bilaterally, no nystagmus Oropharynx: mucous membranes moist, no lesions Neck:supple and no adenopathy Chest:Normal chest wall and respirations. Clear to auscultation. Lungs:Clear to auscultation bilaterally Cardiac:Heart sounds are normal. Regular rate and rhythm without murmur, gallop or rub. Abdomen: soft, non-tender; bowel sounds normal; no masses, no organomegaly :deferred Extremities: No clubbing or cyanosis Skin: no rashes Neurologic: normal without focal findings and mental status, speech normal, alert and oriented x3 Musculoskeletal: no ttp or swelling LABS: Lab Results Component Value Date GLUCOSE 104 06/03/2024 CALCIUM 10.0 06/03/2024 CO2 23 06/03/2024 CREATININE 1.46 (H) 06/03/2024 Lab Results Component Value Date ALT 27 06/03/2024 AST 41 06/03/2024 ALKPHOS 131 (H) 06/03/2024 BILITOT 0.4 06/03/2024 Lab Results Component Value Date WBC 8.2 06/03/2024 HGB 14.5 06/03/2024 HCT 47.1 06/03/2024 MCV 87.2 06/03/2024 Lab Results Component Value Date SEDRATE 15 06/03/2024 IMAGING: Results for orders placed during the hospital encounter of 12/23/20 XR Hand Left 3 or More Views Narrative Exam: Left hand 3 views HISTORY: 65-year-old male with a history of arthralgias. Patient with rheumatoid arthritis of multiple sites with positive rheumatoid factor FINDINGS: PA, oblique and lateral views of the left hand were obtained and demonstrates normal-appearing bony mineralization. Marked arthritic changes are seen at the level of the 1st carpal metacarpal articulation with radial subluxation of the base of the 1st metacarpal bone relative to the deformed and flattened trapezium. Cyst formation seen on both sides of this articulation. Severe arthritic changes also believed to be present at the level of the 2nd metacarpophalangeal joint. Generally the interphalangeal joints appear to be relatively intact with some small periarticular soft tissue calcifications seen in relationship to at least the 2nd and 3rd PIP joints. Impression Arthritic changes at the 1st carpal metacarpal articulation. Severe arthritic changes of the 2nd metacarpophalangeal joint. Normal-appearing bony mineralization without disruption of the interphalangeal joints. Electronically signed by: Rk Owens M.D. Results for orders placed during the hospital encounter of 12/23/20 XR Hand Right 3 or More Views Narrative Exam: Right hand 3 views HISTORY: 65-year-old male with rheumatoid arthritis involving multiple sites with positive rheumatoid factor. History of long-term treatment with high risk medication. FINDINGS: PA, oblique and lateral views of the right hand were obtained and demonstrates normal-appearing bony mineralization. There appears to be severe narrowing of the 2nd and 3rd metacarpophalangeal joints. Soft tissue prominence seen in association with soft tissue calcifications and spurring seen in relationship to the 3rd PIP joint. Generally the interphalangeal joints appear to be relatively intact. No evidence of erosive changes nor bone or joint space destruction noted. Impression Suggestion of severe narrowing of the 2nd and 3rd metacarpophalangeal joints. Moderate arthritic changes with soft tissue prominence seen at the level of the 3rd PIP joint. Normal-appearing bony mineralization without erosive changes nor bone or joint space destruction. Electronically signed by: Rk Owens M.D. 1. Rheumatoid arthritis involving multiple sites with positive rheumatoid factor (CMS/HCC) (Primary) 2. Long-term use of high-risk medication 3. Immunosuppression due to drug therapy (HCC) 1)this is a very pleasant man w/ well controlled RA on simponi at 170mg q 2 mo. he can remain off of mtx for now. 2)no s/s of med tox or infection. Labs today 3)stable, continue conservative management 4)advise cessation. ESSOR OF THEATER documented in this encounter Miscellaneous Notes * Assessment & Plan Note - Loraine Becerril NP - 11/04/2024 2:56 PM PROFESSOR OF THEATER Associated Problem(s): Primary osteoarthritis involving multiple joints For additional pain relief, you can add [...] further. Please make sure to check any ove d-ctj-[id number] products you may take as well as [...] there are certainly other store- brand/generic options. Justmake sure that the active ingredient is diclofenac For optimal benefit, avoid washing hands for about 30 minutes after application. Also remember thatthis topical gel contains a non-steroidal pain reliever and should be kept away from children and pets. ; May return for shoulder IASI if desired. ESSOR OF THEATER * Assessment & Plan Note - Loraine Becerril NP - 11/04/2024 2:55 PM PROFESSOR OF THEATER Associated Problem(s): Long-term use of high-risk medication Long-term use of high-risk medication requiring regular monitoring. Labs done on 10/30/24 at [facility] reviewed today, no s/s of med tox or infection. Encouraged to work with PCP to make sure all recommended cancer screens and vaccinations are complete. Avoid live-vaccines unless reviewed with weather algorithm scientist first. ESSOR OF THEATER * Assessment & Plan Note - Loraine Becerril NP - 11/04/2024 2:55 PM PROFESSOR OF THEATER Associated Problem(s): Immunosuppression due to drug therapy (HCC) Encourage routine vaccinations. Follow up with PCP. Avoid close contact with infectious individuals. If you become ill, please let us know so we can provide guidance on holding your immunosuppressantmedications. ESSOR OF THEATER * Assessment & Plan Note - Loraine Becerril NP - 11/04/2024 2:54 PM PROFESSOR OF THEATER Associated Problem(s): Rheumatoid arthritis involving multiple sites with positive rheumatoid factor (CMS/HCC) Stable on Simponi monotherapy. Continue same. Follow up in 6 months and prn. ESSOR OF THEATER documented in this encounter Plan of Treatment Not on file documented as of this encounter Visit Diagnoses Diagnosis Rheumatoid arthritis involving multiple sites with positive rheumatoid factor (CMS/HCC)- Primary Long-term use of high-risk medication Immunosuppression due to drug therapy ([facility]) documented in this encounter Discontinued Medications Medication Sig Discontinue Reason Start Date End Da te methotrexate 2.5 mg tablet TAKE 10 TABLETS BY MOUTH ONCE EVERY 7 DAYS Therapy completed 02/03/2024 11/04/2024 cyclobenzaprine (FLEXERIL) 10 mg tabletIndications:Muscle Spasm Take 1 tablet (10 mg total) by mouth 2 (two) times a day as needed for muscle spasms Therapy completed 06/06/2023 11/04/2024 fluticasone propionate (FLONASE) 50 mcg/actuation nasal spray SHAKE LIQUID AND USE 1 SPRAY IN EACH NOSTRIL EVERY 12 HOURS Therapy completed 12/23/2023 11/04/2024 nystatin 100,000 unit/mL suspension SHAKE LIQUID AND TAKE 5 ML BY MOUTH FOUR TIMES DAILY Therapy completed 12/23/2023 11/04/[address] (PROTONIX) 40 mg EC tablet Take 1 tablet (40 mg total) by mouth every 12 (twelve) hours Therapy completed 12/23/2023 11/04/2024 predniSONE (DELTASONE) 10 mg tablet Therapy completed 12/23/2023 11/04/2024 documented as of this encounter Care Teams Heat And Vent Aircraft Mechanic Relationship Specialty Start Date End Date Davey Reynolds MD [address] [place] [address] PCP - General Family Medicine 12/07/19 documented as of this encounter
--- OUTSIDE RECORDS SUMMARY | 2024-11-05 15:26 | XMS_ITS | Patient Health Summary ---
Author Organization [facility] Address [address] [place] [address] Care Team Providers Care Spring Forger Name Role Phone Unavailable Primary Care Provider Unavailabl e Note from [facility],non-owned Affiliates and Associated Physician Practices is amultiple site organization consisting of ambulatory clinics and hospital sitesin [place], [place], [place] and [place]. This disclosure is being madepursuant to the Care Everywhere program and may not contain all information available regarding this patient. Last updated 18.[facility] [employer] Social History Tobacco Use Types Packs/Day Years Used Date Smoking Tobacco: Never Assessed Sex and Gender Information Value Date Recorded Sex Assigned at Not on file Gender Identity Not on file Sexual Orientation Not on file
== END 2024-11-05 15:21 | disposition home or self-care (01) ==
PROVIDERS: PCP Family Medicine; Visit Provider Family Medicine
DX: K44.9 Diaphragmatic hernia without obstruction or gangrene (principal); M19.012 Primary osteoarthritis, left shoulder
CPT/HCPCS: 73030

== ENCOUNTER 2024-11-18 07:48 | Outpatient (CLI) | payer MEDICARE, SELFPAY ==
--- NOTE | ~2024-11-18 | CT_ITS ---
EXAMINATION:CT lung screening DATE: 11/18/2024 07:57 INDICATION: Personal history of nicotine dependence. Current smoker with 40 pack year history. TECHNIQUE: Computed tomography (CT) of the chest was performed without intravenous contrast. Automate d exposure control and iterative reconstruction technique were employed. The dose-length product (DLP ) was 120.15 mGy-cm. COMPARISON: Chest CT 12/10/2023 FINDINGS: There is moderate emphysema. There is mild atelectasis bilaterally. A calcified left lung n odule is consistent with old granulomatous disease. No pleural effusion. The heart size is normal. Th ere are coronary artery calcifications. No pericardial effusion. There is a paraesophageal hiatal her fadi with the fundus inferior to the diaphragm and the gastric body superior to the diaphragm. There i s a 2.0 cm cyst in right kidney. There is mild chronic anterior wedging of vertebral bodies. There is severe thoracic spondylosis. IMPRESSION: 1. Lung-RADS category 1S: Negative. Continue annual screening with noncontrast low-dose chest CT in 1 2 months. 2. Paraesophageal hiatal hernia. Reviewed, dictated and finalized at location [] TERRAIN VEHICLE RACER IMPRESSION: 1. Lung-RADS category 1S: Negative. Continue annual screening with noncontrast low-dose chest CT in 12 months. 2. Paraesophageal hiatal hernia.
--- OUTSIDE RECORDS SUMMARY | 2024-11-18 07:52 | XMS_ITS | Referral Summary ---
Author Organization [facility] Address [address] [place] [address] Care Team Providers Care Fire Hydrant Operator Name Role Phone Davey Reynolds MD Primary Care Provider Encounters Date Type Department Care Team Description 11/04/2024 1:30 PM EMERGENCY ROOM TECH Office Visit [facility] Rheumatology at [facility] [address] [place] [phone] Loraine Becerril NP Rheumatoid arthritis involving multiple sites with positive rheumatoid factor (CMS/HCC) (Primary Dx); Long-term use of high-risk medication; Immunosuppression due to drug therapy 10/19/2024 2:00 PM EMERGENCY ROOM TECH Infusion [facility] [address] [place] [phone] Rheumatoid arthritis involving multiple sites with positive rheumatoid factor (HCC) (Primary Dx) 08/24/2024 2:15 PM EMERGENCY ROOM TECH Infusion [facility] [address] [place] [phone] Rheumatoid arthritis involving multiple sites with positive rheumatoid factor (HCC) (Primary Dx) from Last 3 Months [...] 11/04/2024 Assessment & Plan (11/04/2024 2:55 PM EMERGENCY ROOM TECH): Encourage routine vaccinations. Follow up with PCP. Avoid close contact with infectious individuals. If you become ill, please let us know so we can provide guidance on holding your immunosuppressant medications. Primary osteoarthritis involving multiple joints 04/11/2023 Assessment & Plan (11/04/2024 2:56 PM EMERGENCY ROOM TECH): For additional pain relief, you can add [...] further. Please make sure to check any hjdg-wwc-ahyppvs products you may take as well as [...] further. Please make sure to check any qkxq-ryi-hnriikx products you may take as well as any prescription pain relievers that include acetaminophen as you will need to include those doses in the 3000 mg limit of the medication. When taking acetaminophen regularly, I ask that you avoid alcohol or modify to only 1 alcohol drink a few days a week. Assessment & Plan (07/29/2023 2:39 PM EMERGENCY ROOM TECH): Seems a bit improved after steroid taper [...] further. Please make sure to check any grdo-xgl-yrpngzl products you may take as well as [...] further. Please make sure to check any kntt-emb-ivmuwud products you may take as well as [...] 08/18/2021 Assessment & Plan (11/04/2024 2:55 PM EMERGENCY ROOM TECH): Long-term use of high-risk medication requiring regular monitoring. Labs done on 10/30/24 at [facility] reviewed today, no s/s of med tox or infection. Encouraged to work with PCP to make sure all recommended cancer screens and vaccinations are complete. Avoid live-vaccines unless reviewed with hopper feeder first. Assessment & Plan (07/29/2023 2:33 PM EMERGENCY ROOM TECH): Long-term use of high-risk medication requiring regular monitoring. Labs ordered, no s/s of med tox or infection. Encouraged to work with PCP to make sure all recommended cancer screens and vaccinations are complete. Avoid live-vaccines unless reviewed with hopper feeder first. High dose flu vaccine administered today. Assessment & Plan (04/11/2023 9:32 AM CDT): Long-term use of high-risk medication requiring regular monitoring. Labs ordered, no s/s of med tox or infection. Encouraged to work with PCP to make sure all recommended cancer screens and vaccinations are complete. Avoid live-vaccines unless reviewed with hopper feeder first. Assessment & Plan (08/18/2021 7:34 AM EMERGENCY ROOM TECH): Long-term use of high-risk medication requiring regular monitoring. Labs ordered, no s/s of med tox or infection. Encouraged to work with PCP to make sure all recommended cancer screens and vaccinations are complete. Avoid live-vaccines unless reviewed with hopper feeder first. Chronic left SI joint pain 08/18/2021 Assessment & Plan (08/18/2021 7:37 AM EMERGENCY ROOM TECH): Acute onset, now chronic, more likely mechanical/degenerative [...] ARTHRITIS Assessment & Plan (11/04/2024 2:54 PM EMERGENCY ROOM TECH): Stable on Simponi monotherapy. Continue same. Follow [...] methotrexate. Assessment & Plan (07/29/2023 2:34 PM EMERGENCY ROOM TECH): Stable on simponi and MTX. Feels that simponi may be a bit less effective than originally and will consider a change at next visit. Assessment & Plan (04/11/2023 9:33 AM CDT): Currently stable on Simponi and MTX. Continue same. Follow up in 3-4 months and prn. Assessment & Plan (08/18/2021 7:35 AM EMERGENCY ROOM TECH): Chronic, stable on MTX and Simponi. Continue [...] on file Legal Sex Male 1:11 AM EMERGENCY ROOM TECH Gender Identity Male 12/16/2020 7:16 AM CDT Sexual Orientation Straight 12/16/2020 7: 16 AM CDT Last Filed Vital Signs Vital Sign Reading Time Taken Comments Blood Pressure 124/80 11/04/2024 1:28 PM EMERGENCY ROOM TECH Pulse 80 11/04/2024 1:28 PM EMERGENCY ROOM TECH Temperature 36.9 C (98.5 F) 11/04/2024 1:28 PM EMERGENCY ROOM TECH Respiratory Rate 18 11/04/2024 1:28 PM EMERGENCY ROOM TECH Oxygen Saturation 98% 11/04/2024 1:28 PM EMERGENCY ROOM TECH Inhaled Oxygen Concentration - - Weight 87.1 kg (192 lb) 11/04/2024 1:28 PM EMERGENCY ROOM TECH Height 182.9 cm (6') 11/04/2024 1:28 PM EMERGENCY ROOM TECH Body Mass Index 26.04 11/04/2024 1:28 PM EMERGENCY ROOM TECH Plan of Treatment Not on file Procedures Procedure Name Priority Date/Time Associated Diagnosis Comments HEPATITIS PANEL, ACUTE Routine 09/07/2019 9:01 AM EMERGENCY ROOM TECH Rheumatoid arthritis involving multiple sites with positive rheumatoid factor (HCC) from Last 3 Months or Most Recently Relevant to Health Maintenance Results * Hepatitis panel, acute (09/07/2019 9:01 AM EMERGENCY ROOM TECH) Hep A IgM Nonreactive Nonreactive [facility] Comment: Interpretive Data If test is reported as GRAYZONE, new sample should be drawn in two weeks for testing. Current interpretive data was last revised on 2016. Hep B core IgM Nonreactive Nonreactive [facility] Comment: Interpretive Data If test is reported as GRAYZONE, new sample should be drawn for testing. Current interpretive data was last revised on 2016. Hep C Ab Nonreactive Nonreactive [facility] Comment: Interpretive Data Positive results should be confirmed by a molecular method. If positive, a second separately collected sample should be submitted for Hepatitis C Virus (HCV) RNA Detection and Quantitation by Real-Time Reverse Track Subway Repair Supervisor-PCR (RT-PCR). Current interpretive data was last revised on 2016. HepBsAg Nonreactive Nonreactive [facility] Blood specimen (specimen) 09/07/2019 9:01 AM EMERGENCY ROOM TECH 09/07/2019 10:44 AM EMERGENCY ROOM TECH us Merle Sol MD LAB MICROBIOLOGY - GENERAL O RDERABLES Edited Result - Final [facility] Department [place] [address] from Last 3 Months or Most Recently Relevant to Health Maintenance Insurance [place] CHOICE PRF [place] COMMERCIAL GENERIC MEDICARE AET CARE OTHER [facility] INSURANCE MEDICARE [employer] N[employer] MEDICARE [employer] Care Teams Fire Hydrant Operator Relationship Specialty Start Date End Date Davey Reynolds MD [address] [place] [address] PCP - General Family Medicine 12/07/19
--- OUTSIDE RECORDS SUMMARY | 2024-11-18 07:52 | XMS_ITS | Referral Summary ---
Author Organization [facility] Address [address] [place] [address] Care Team Providers Care Belt Operator Name Role Phone Unavailable Primary Care Provider Unavailabl e Source Comments [facility],non-owned Affiliates and Associated Physician Practices is amultiple site organization consisting of ambulatory clinics and hospital sitesin [place], [place], [place] and [place]. This disclosure is being madepursuant to the Care Everywhere program and may not contain all information available regarding this patient. Last updated 18.[facility] [employer] Social History Tobacco Use Types Packs/Day Years Used Date Smoking Tobacco: Never Assessed Sex and Gender Information Value Date Recorded Sex Assigned at Not on file Gender Identity Not on file Sexual Orientation Not on file Plan of Treatment Not on file RASHEED,SEBASTIÁN Personal/Family Spouse [address] [place] [address]
--- OUTSIDE RECORDS SUMMARY | 2024-11-18 07:52 | XMS_ITS | Clinical Summary ---
Author Organization [facility] Address [address] [place] [address] Care Team Providers Care Card Player Name Role Phone Unavailable Primary Care Provider Unavailabl e Source Comments [facility],non-owned Affiliates and Associated Physician Practices is amultiple site organization consisting of ambulatory clinics and hospital sitesin [place], [place], [place] and [place]. This disclosure is being madepursuant to the Care Everywhere program and may not contain all information available regarding this patient. Last updated 18.[facility] [employer] Social History Tobacco Use Types Packs/Day Years Used Date Smoking Tobacco: Never Assessed Sex and Gender Information Value Date Recorded Sex Assigned at Not on file Gender Identity Not on file Sexual Orientation Not on file Plan of Treatment Health Maintenance Due Date Last Done Comments COLON MONITORING 1954 COLONOSCOPY - COLON CA SCREENING 1954 CT COLONOGRAPHY - COLON CA SCREENING 1954 FIT - COLON CA SCREENING 1954 FLEX SIG - COLON CA SCREENING 1954 LIPID TESTING 1954 MEDICARE AWV 12 MONTHS 1954 HEPATITIS C SCREENING 07/18/1972 DTAP/TDAP/TD VACCINES (1 - Tdap) 1973 PNEUMOCOCCAL VACCINE 50+ (1 of 1 - PCV) 2004 ZOSTER VACCINE (1 of 2) 2004 COLOGUARD (AGES 45-75) - COLON CA SCREENING 05/30/2023 05/30/2020 Colorectal Cancer Screening 05/30/2023 COVID-19 VACCINE ( season) 2024 10/05/2021, 12/05/2020, 11/02/2020 INFLUENZA VACCINE [...]
--- OUTSIDE RECORDS SUMMARY | 2024-11-18 07:52 | XMS_ITS | Clinical Summary ---
Author Organization [facility] Address [address] [place] [address] Care Team Providers Care Streetcar Conductor Name Role Phone Davey Reynolds MD Primary [...] 11/04/2024 Assessment & Plan (11/04/2024 2:55 PM SOFTWARE TEST SPECIALIST): Encourage routine vaccinations. Follow up with PCP. Avoid close contact with infectious individuals. If you become ill, please let us know so we can provide guidance on holding your immunosuppressant medications. Primary osteoarthritis involving multiple joints 04/11/2023 Assessment & Plan (11/04/2024 2:56 PM SOFTWARE TEST SPECIALIST): For additional pain relief, you can add [...] further. Please make sure to check any atqm-sxx-yfdecoc products you may take as well as [...] further. Please make sure to check any gvmf-drq-zetycpw products you may take as well as any prescription pain relievers that include acetaminophen as you will need to include those doses in the 3000 mg limit of the medication. When taking acetaminophen regularly, I ask that you avoid alcohol or modify to only 1 alcohol drink a few days a week. Assessment & Plan (07/29/2023 2:39 PM SOFTWARE TEST SPECIALIST): Seems a bit improved after steroid taper [...] further. Please make sure to check any kcex-wcd-prbwjty products you may take as well as [...] further. Please make sure to check any vbih-spi-aesiays products you may take as well as [...] 08/18/2021 Assessment & Plan (11/04/2024 2:55 PM SOFTWARE TEST SPECIALIST): Long-term use of high-risk medication requiring regular monitoring. Labs done on 10/30/24 at [facility] reviewed today, no s/s of med tox or infection. Encouraged to work with PCP to make sure all recommended cancer screens and vaccinations are complete. Avoid live-vaccines unless reviewed with retail cashier associate first. Assessment & Plan (07/29/2023 2:33 PM SOFTWARE TEST SPECIALIST): Long-term use of high-risk medication requiring regular monitoring. Labs ordered, no s/s of med tox or infection. Encouraged to work with PCP to make sure all recommended cancer screens and vaccinations are complete. Avoid live-vaccines unless reviewed with retail cashier associate first. High dose flu vaccine administered today. Assessment & Plan (04/11/2023 9:32 AM CDT): Long-term use of high-risk medication requiring regular monitoring. Labs ordered, no s/s of med tox or infection. Encouraged to work with PCP to make sure all recommended cancer screens and vaccinations are complete. Avoid live-vaccines unless reviewed with retail cashier associate first. Assessment & Plan (08/18/2021 7:34 AM SOFTWARE TEST SPECIALIST): Long-term use of high-risk medication requiring regular monitoring. Labs ordered, no s/s of med tox or infection. Encouraged to work with PCP to make sure all recommended cancer screens and vaccinations are complete. Avoid live-vaccines unless reviewed with retail cashier associate first. Chronic left SI joint pain 08/18/2021 Assessment & Plan (08/18/2021 7:37 AM SOFTWARE TEST SPECIALIST): Acute onset, now chronic, more likely mechanical/degenerative [...] ARTHRITIS Assessment & Plan (11/04/2024 2:54 PM SOFTWARE TEST SPECIALIST): Stable on Simponi monotherapy. Continue same. Follow [...] methotrexate. Assessment & Plan (07/29/2023 2:34 PM SOFTWARE TEST SPECIALIST): Stable on simponi and MTX. Feels that simponi may be a bit less effective than originally and will consider a change at next visit. Assessment & Plan (04/11/2023 9:33 AM CDT): Currently stable on Simponi and MTX. Continue same. Follow up in 3-4 months and prn. Assessment & Plan (08/18/2021 7:35 AM SOFTWARE TEST SPECIALIST): Chronic, stable on MTX and Simponi. Continue to monitor. Encounters Date Type Department Care Team Description 11/04/2024 1:30 PM SOFTWARE TEST SPECIALIST Office Visit [facility] Rheumatology at [facility] [address] [place] [address] Loraine Becerril, MALDONADO Rheumatoid arthritis involving multiple sites with positive rheumatoid factor (CMS/HCC) (Primary Dx); Long-term use of high-risk medication; Immunosuppression due to drug therapy 10/19/2024 2:00 PM SOFTWARE TEST SPECIALIST Infusion [facility] [place] [address] Rheumatoid arthritis involving multiple sites with positive rheumatoid factor (HCC) (Primary Dx) 08/24/2024 2:15 PM SOFTWARE TEST SPECIALIST Infusion [facility] [place] [address] Rheumatoid arthritis involving multiple sites with positive [...] on file Legal Sex Male 1:11 AM SOFTWARE TEST SPECIALIST Gender Identity Male 12/16/2020 7:16 AM CDT Sexual Orientation Straight 12/16/2020 7: 16 AM CDT Obstetrics History Last Filed Vital Signs Vital Sign Reading Time Taken Comments Blood Pressure 124/80 11/04/2024 1:28 PM SOFTWARE TEST SPECIALIST Pulse 80 11/04/2024 1:28 PM SOFTWARE TEST SPECIALIST Temperature 36.9 C (98.5 F) 11/04/2024 1:28 PM SOFTWARE TEST SPECIALIST Respiratory Rate 18 11/04/2024 1:28 PM SOFTWARE TEST SPECIALIST Oxygen Saturation 98% 11/04/2024 1:28 PM SOFTWARE TEST SPECIALIST Inhaled Oxygen Concentration - - Weight 87.1 kg (192 lb) 11/04/2024 1:28 PM SOFTWARE TEST SPECIALIST Height 182.9 cm (6') 11/04/2024 1:28 PM SOFTWARE TEST SPECIALIST Body Mass Index 26.04 11/04/2024 1:28 PM SOFTWARE TEST SPECIALIST Plan of Treatment Health Maintenance Due Date [...] HEPATITIS PANEL, ACUTE Routine 09/07/2019 9:01 AM SOFTWARE TEST SPECIALIST Rheumatoid arthritis involving multiple sites with positive rheumatoid factor (HCC) from Last 3 Months or Most Recently Relevant to Health Maintenance Results * Hepatitis panel, acute (09/07/2019 9:01 AM SOFTWARE TEST SPECIALIST) Hep A IgM Nonreactive Nonreactive [facility] Comment: Interpretive Data If test is reported as GRAYZONE, new sample should be drawn in two weeks for testing. Current interpretive data was last revised on 2016. Hep B core IgM Nonreactive Nonreactive [facility] Comment: Interpretive Data If test is reported as GRAYZONE, new sample should be drawn for testing. Current interpretive data was last revised on 2016. Hep C Ab Nonreactive Nonreactive [facility] Comment: Interpretive Data Positive results should be confirmed by a molecular method. If positive, a second separately collected sample should be submitted for Hepatitis C Virus (HCV) RNA Detection and Quantitation by Real-Time Reverse Basket Hand Braider-PCR (RT-PCR). Current interpretive data was last revised on 2016. HepBsAg Nonreactive Nonreactive [facility] Blood specimen (specimen) 09/07/2019 9:01 AM SOFTWARE TEST SPECIALIST 09/07/2019 10:44 AM SOFTWARE TEST SPECIALIST us Merle Sol MD LAB MICROBIOLOGY - GENERAL O RDERABLES Edited Result - Final [facility] [place] [address] from Last 3 Months or Most Recently Relevant to Health Maintenance Insurance [place] CHO[place] PRF [place]CIAL GENER[place] MEDICARE AETNA CARE OTHER [employer] MEDICARE [employer] N[employer] MEDICARE [facility] INSURANCE Care Teams Streetcar Conductor Relationship Specialty Start Date End Date Davey Reynolds MD [address] [facility] [address] [place] [address] PCP - General Family Medicine 12/07/19
--- OUTSIDE RECORDS SUMMARY | 2024-11-18 07:52 | XMS_ITS | Patient Health Summary ---
Author Organization [facility] Address [address] [place] [address] Care Team Providers Care Stringed Instrument Assembler Name Role Phone Unavailable Primary Care Provider Unavailabl e Note from [facility],non-owned Affiliates and Associated Physician Practices is amultiple site organization consisting of ambulatory clinics and hospital sitesin [place], [place], [place] and [place]. This disclosure is being madepursuant to the Care Everywhere program and may not contain all information available regarding this patient. Last updated 18.[facility] [employer] Social History Tobacco Use Types Packs/Day Years Used Date Smoking Tobacco: Never Assessed Sex and Gender Information Value Date Recorded Sex Assigned at Not on file Gender Identity Not on file Sexual Orientation Not on file
--- OUTSIDE RECORDS SUMMARY | 2024-11-18 07:53 | XMS_ITS | Clinical Summary ---
Author Organization [facility] Address [address] [place] [address] Care Team Providers Care Coronary Clinical Specialist Name Role Phone Davey Reynolds MD Primary Care Provider [phone] Allergies Active Allergy Reactions Criticality Noted Date [...] Encounters Date Type Department Care Team Description 11/10/2024 External Device Data [facility] ABSTRACTION Provider, Abstract 10/08/2024 External Device Data [facility] Provider, [...] AA) Screening 2019 INFLUENZA VACCINE (#1) 2024 3, 05/30/2022, 08/05/2021, Additional history exists COVID-19 Vaccine ( - 2023-2 5 season) 2024 10/05/2021, 12/05/2020, 11/02/2020 DTAP/TDAP/TD VACCINES (2 - T d or Tdap) 05/25/2027 05/25/2017 RSV VACCINE (60+ or ) (1 - 1-dose 75+ series) 2029 COLORECTAL SCREENING 12/09/2033 12/10/2023 Colorectal Cancer Screening 12/09/2033 PNEUMOCOCCAL VACCINE 50+ YEARS Completed 07/13/2020 , 08/22/2015 Insurance MEDICARE PART A AND B [employer] DENIS [id number] Care Teams Coronary Clinical Specialist Relationship Specialty Start Date End Date Davey Reynolds MD [address] [facility] [address] [place] [address] PCP - General Family Practice 01/08/24
== END 2024-11-18 07:49 | disposition home or self-care (01) ==
PROVIDERS: PCP Family Medicine; Visit Provider Family Medicine
DX: Z12.2 Encounter for screening for malignant neoplasm of respiratory organs (principal); K44.9 Diaphragmatic hernia without obstruction or gangrene; Z87.891 Personal history of nicotine dependence
CPT/HCPCS: 71271